=== PATIENT | male | born 1960 | race Caucasian/White ===

== ENCOUNTER 2019-02-06 06:52 | Day surgery (SDC) | payer BC, OTHER ==
[2019-02-05 11:24] LABS: BASOPHILS % (AUTO) 0.7 % (0.0-5.0); EOSINOPHILS % (AUTO) 0.9 % (0.0-8.0); HEMATOCRIT 49.6 % (42-54); LYMPHOCYTES % (AUTO) 10.7 % (21.0-51.0); MEAN CORPUSCULAR HEMOGLOBIN 33.3 pg (27.0-33.0); MEAN CORPUSCULAR HGB CONC 34.6 g/dL (32.0-36.0); MEAN CORPUSCULAR VOLUME 96.5 fL (79-99); MONOCYTES % (AUTO) 11.9 % (3.0-13.0); NEUTROPHILS % (AUTO) 75.8 % (40.0-77.0); NUCLEATED RED BLOOD CELLS 0.1 % (0.0-0.19); PLATELET COUNT (AUTO) 192 K/uL (130-400); RED BLOOD CELL COUNT(AUTO) 5.14 MIL/uL (4.50-6.20); RED CELL DISTRIBUTION WIDTH 14.3 % (11.0-15.5); WHITE BLOOD COUNT (AUTO) 5.7 K/uL (4.8-10.8)
[2019-02-05 11:30] LABS: CREATININE 1.2 mg/dL (0.5-1.5); POTASSIUM 4.4 mmol/L (3.5-5.1)
[2019-02-05 11:35] VITALS: BP 119/88
[2019-02-05 12:30] LABS: INR 1.05 (0.85-1.15); PARTIAL THROMBOPLASTIN TIME 29.9 SEC (26.3-35.5)
[2019-02-06] VITALS (12 sets, daily range): BP systolic 94–137; BP diastolic 49–87
[~2019-02-06] VITALS: Ht 175.3 cm; Wt 103.1 kg
[~2019-02-06 06:52] MED LIST: AMIO200T5 PO; APIX5TAB PO; HYDR12.54 PO; NEBI10TA PO; RANO500T2 PO; SACU1TAB7 PO
[2019-02-06] MEDS ORDERED: PROPOFOL 10 MG/ML 20ML VIAL IV ONE (07:53)
[2019-02-06] MEDS ORDERED: SUCCINYLCHOLINE 200MG/10ML SYR ONE (07:53)
[2019-02-06] MEDS ORDERED: SODIUM CHLORIDE 0.9% 1000ML 1,000 ML IV SCH (08:00)
--- NOTE | 2019-02-06 08:07 | NUR ---
TIME OUT COMPLETED, DOCTOR ELZBIETA CATES, DOCTOR PALENCIA, JORGE A MAST RN AND I IN ROOM FOR PROCEDURE START TIME 0807AM AND END TIME WAS 0812AM, PT TOLERATED WELL NO COMPLICATIONS. RECOVERY START TIME WAS 0812. VITAL SIGNS WITHIN NORMAL LIMIT (REVIEW VITALS TAB). FAMILY RETURNED TO THE ROOM AT 0842, DISCHARGE INSTRUCTIONS GIVEN TO PATIENT AND FAMILY, NO CONCERNS.
== END 2019-02-06 09:05 | disposition home or self-care (01) ==
LOC: DAH 06:52
PROVIDERS: ATTEND Internal Medicine Cardiovascular Disease
DX: I48.1 Persistent atrial fibrillation (principal); Z79.01 Long term (current) use of anticoagulants; Z79.899 Other long term (current) drug therapy; Z72.89 Other problems related to lifestyle; Z82.49 Family history of ischemic heart disease and other diseases of the circulatory system; Z83.3 Family history of diabetes mellitus
CPT/HCPCS: 36415; 80048; 85025; 85610; 85730; 92960; 93005 ×2; A4215; A4216; A4221; A4222; A4223 ×3; A4606; J0330; J2704

== ENCOUNTER 2024-04-10 23:08 | Inpatient (IN) | payer OTHER ==
[~2024-04-10] VITALS: Ht 175.3 cm; Wt 104.2 kg
[~2024-04-10 23:08] MED LIST changes: +AEC81 PO; +ALBU18HF7 IH; -AMIO200T5 PO; +AMIO200T68 PO; -APIX5TAB PO; +BROM118S48 PO; +CEFD300C3 PO; +CELE-125 PO; +DESL5TAB45 PO; +FEXO1TAB8 PO; +FLUT1BLS3 IH; +LABE200T7 PO; +METH4TAB3 PO; +MONT-39 PO; -NEBI10TA PO; +OMEP20CA12 PO; -RANO500T2 PO; +SACU1TAB4 PO; -SACU1TAB7 PO
--- NOTE | 2024-04-10 23:25 | ERN ---
ED Note History of Present Illness Stated Complaint: HYPERTENSION Chief Complaint: Hypertension Time Seen by MD: 23:12 Dictation: This is a 63-year-old morbidly obese male who presented to the emergency room via EMS with complaints of dizziness and very high blood pressure. Patient has a known history of hypertension and takes his medications regularly. He saw his primary care physician today Dr. Hawkins there was and eventually in the evening they went out to dinner and had some salty diet. Upon returning home he felt dizzy and checked his blood pressure multiple times it was systolics of over 205 over 105 and EMS was summoned. Per EMS blood pressure was 244/190 according to the patient. He had transient blurred vision but symptoms resolved by the time I evaluated him. He received labetalol per EMS Temperature 98.4 pulse 54 respirations 16 blood pressure 208/162 pulse oximetry 100% on room air His chronic medical problems include asthma, high cholesterol, hypertension, obstructive sleep apnea syndrome, liver disease with fatty liver. Allergies: Coded Allergies: acetaminophen (Unverified Allergy, Intermediate, RASH, 11/02/23) propoxyphene (Unverified Allergy, Intermediate, RASH, 11/02/23) Home Meds Active Scripts Methylprednisolone (Medrol) 4 Mg Tab.ds.pk, 4 MG PO AD, #1 PACK Prov:JUNIOR MCCOLLUM AGPCNP 11/05/23 Cefdinir (Cefdinir) 300 Mg Capsule, 300 MG PO BID, #10 CAP Prov:JUNIOR MCCOLLUM [facility] 11/05/23 Reported Medications Aspirin (ASPIRIN 81 MG ECTAB) 81 Mg Ectab, 81 MG PO QODAY, TAB.EC 11/03/23 D-Methorphan Hb/P-Epd HCl/Bpm (Bromfed Dm Cough Syrup) 2 Mg-30 Mg-10 Mg/5 Ml Syrup, 10 ML PO Q6HPRN PRN for COUGH, ML 11/02/23 Fexofenadine/Pseudoephedrine (Kerri-D 24 Hour Tablet) 180 Mg-240 Mg Tab.er.24h, 1 EACH PO DAILY, TAB 11/02/23 Albuterol Sulfate (Ventolin Hfa) 90 Mcg Hfa.aer.ad, 18 GM IH BID, INHALER 11/02/23 Fluticasone/Umeclidin/Vilanter (Trelegy Ellipta 100-62.5-25) 100-62.5 Blst.w.dev, 1 EACH IH DAILY 11/02/23 Desloratadine (Desloratadine) 5 Mg Tablet, 5 MG PO DAILY, TAB 11/02/23 Hydrochlorothiazide (Hydrochlorothiazide) 12.5 Mg Tablet, 12.5 MG PO DAILY, TAB 24 Sacubitril/Valsartan (Entresto 97 mg-103 mg Tablet) 97 Mg-103 Mg Tablet, 0.5 EACH PO PM, TAB 11/02/23 Sacubitril/Valsartan (Entresto 97 mg-103 mg Tablet) 97 Mg-103 Mg Tablet, 1 EACH PO DAILY, TAB 24 Amiodarone HCl (Amiodarone HCl) 200 Mg Tablet, 200 MG PO DAILY, TAB 24 Montelukast Sodium (Montelukast Sodium) 10 Mg Tablet, 10 MG PO DAILY, TAB 24 Omeprazole (Omeprazole) 20 Mg Capsule.dr, 20 MG PO BID, CAP 11/02/23 Celecoxib (Celecoxib) 200 Mg Capsule, 200 MG PO BID, CAP 24 Labetalol HCl (Labetalol HCl) 200 Mg Tablet, 200 MG PO BID, TAB 11/02/23 Past Medical History Past Medical History: Asthma, High Cholesterol, Hypertension, Liver Disease Additional Past Medical Hx: PROSTATE CANCER, SLEEP APNEA, FATTY LIVER Surgical History: None Surgical History Other: LEFT KNEE, PROSTATE SX, RN Note Reviewed/Agreed w/PFSH: Yes Review of System Dictation Constitutional: Negative for fever,chills, and weight loss Eyes: Negative for injury, pain,redness, and discharge ENT: Negative for injury,pain or swelling Cardiovascular: Negative for chest pain, palpitations, and edema positive for dizziness and about to pass out Respiratory: Negative for shortness of breath, cough, and wheezing, Abdomen/GI: Negative for abdominal pain, nausea, vomiting, diarrhea, and constipation Back: Negative for injury and pain : Negative for injury, bleeding and discharge MS/Extremity: Negative for injury and deformity Skin: Negative for rash, and discoloration Neuro: Negative for headache, weakness, numbness, tingling, and seizure Psych: Negative for suicide ideation, homicidal ideation, and hallucinations Initial Vital Sign VS Vital Signs Date Time Temp Pulse Resp B/P (MAP) Pulse Ox O2 Delivery O2 Flow Rate FiO2 04/10/24 23:11 98.6 58 16 208/162 100 Room Air 0 04/10/24 23:42 21 Physical Exam Dictation General: awake, alert, NAD morbidly obese male Head/Face: Normocephalic, atraumatic Eyes: PERRL, EOMI, vision at baseline ENT: oral cavity clear, TMs clear, no signs of infection Neck: Trachea midline, supple, no nuchal rigidity Cardiovascular: RRR, normal S1/S2, No MRGs, no JVD Respiratory: CTAB, no respiratory distress, No rales or wheezes Abdomen: Soft, non-tender, non-distended, normal bowel sounds, no guarding or rebound. Skin: Warm, dry, normal turgor, no rash MS/Extremity: Pulses equal, no cyanosis, neurovascular intact, FROM Neuro: COAx4, GCS 15, strength 5/5, CN 2-12 intact, normal cerebellar exam, normal gait, Psych: Normal behavior, mood, and affect normal Extremities-trace edema without any palpable cords, Homans sign is negative Results (Laboratory/Radiology) Laboratory/Radiology Laboratory Tests Test 04/10/24 23:30 04/10/24 23:32 Urine Color YELLOW (YELLOW) Urine Appearance CLEAR (CLEAR) Urine pH 6.5 (5.0-8.0) Urine Specific [place] 1.008 (1.001-1.031) Urine Protein NEGATIVE mg/dL (NEGATIVE) Urine Glucose (UA) NEGATIVE mg/dL (NEGATIVE) Urine Ketones 10 mg/dL (NEGATIVE) H Urine Occult Blood NEGATIVE (NEGATIVE) Urine Nitrate NEGATIVE (NEGATIVE) Urine Bilirubin NEGATIVE mg/dL (NEGATIVE) Urine Urobilinogen 0.2 mg/dL (0.2-1.0) Urine Leukocyte Esterase NEGATIVE Cathy/uL Urine RBC 0-1 /HPF (0-1) Urine WBC 0-1 /HPF (0-1) Urine Bacteria None /HPF (None Seen) Urine Opiates Screen NEGATIVE (NEGATIVE) Urine Barbiturates Screen NEGATIVE (NEGATIVE) Urine Phencyclidine Screen NEGATIVE (NEGATIVE) Urine Amphetamines Screen NEGATIVE (NEGATIVE) Urine Benzodiazepines Screen NEGATIVE (NEGATIVE) Urine Cocaine Screen NEGATIVE (NEGATIVE) Urine Marijuana (THC) Screen NEGATIVE (NEGATIVE) White Blood Count 5.3 K/uL (4.8-10.8) Red Blood Count 3.82 MIL/uL (4.50-6.20) L Hemoglobin 12.9 g/dL (14.0-18.0) L Hematocrit 36.8 % (42-54) L Mean Corpuscular Volume 96.3 fL (79-99) Mean Corpuscular Hemoglobin 33.8 pg (27.0-33.0) H Mean Corpuscular Hemoglobin Concent 35.1 g/dL (32.0-36.0) Red Cell Distribution Width 14.3 % (11.0-15.5) Platelet Count 143 K/uL (130-400) Mean Platelet Volume 8.9 fL (7.5-10.5) Immature Granulocyte % (Auto) 0.4 % (0-1) Neutrophils (%) (Auto) 72.8 % (40.0-77.0) Lymphocytes (%) (Auto) 12.2 % (21.0-51.0) L Monocytes (%) (Auto) 12.9 % (3.0-13.0) Eosinophils (%) (Auto) 0.8 % (0.0-8.0) Basophils (%) (Auto) 0.9 % (0.0-5.0) Neutrophils # (Auto) 3.9 K/uL (1.8-7.7) Lymphocytes # (Auto) 0.7 K/uL (1.0-4.8) L Monocytes # (Auto) 0.7 K/uL (0.1-1.0) Eosinophils # (Auto) 0.04 K/uL (0.00-0.70) Basophils # (Auto) 0.05 K/uL (0.00-0.20) Absolute Immature Granulocyte (auto 0.02 K/uL (0-1) Nucleated Red Blood Cells 0.0 % (0.0-0.19) Sodium Level 142 mmol/L (136-145) Potassium Level 3.8 mmol/L (3.5-5.1) Chloride Level 103 mmol/L (101-111) Carbon Dioxide Level 28 mmol/L (21-32) Blood Urea Nitrogen 13 mg/dL (7-18) Creatinine 1.3 mg/dL (0.5-1.3) Glomerular Filtration Rate Calc 62 mL/min (>90) Random Glucose 94 mg/dL (70-105) Total Calcium 9.1 mg/dL (8.5-10.1) B-Type Natriuretic Peptide 75 pg/mL (0-100) Labs Reviewed?: Yes ED Course ED Course Orders Procedure Category Date Status Time Cbc With Differential LAB 04/10/24 Complete 23:15 Basic Metabolic Panel LAB 04/10/24 Complete 23:15 Bedside Troponin-I LAB.ER 04/10/24 In Process (Poc) 23:15 12 Lead Ekg Tracing- EKG 04/10/24 Logged Technical 23:15 Urinalysis Profile LAB 04/10/24 Complete 23:24 Drug Screen Urine LAB 04/10/24 Complete 23:24 B-Type Natriuretic LAB 04/10/24 Complete Peptide 23:31 Chest 1vw RAD 04/10/24 Taken 23:31 Hydralazine 20mg Inj PHA 04/11/24 Complete (Apresoline 20mg In 00:00 Edm Admit Bridge Order ADM 04/11/24 Transmitted 01:39 Admit Orders ADM 04/11/24 Transmitted 01:39 Vital Signs(Adult CPOE 04/11/24 Verified Hospitalist) 01:52 Daily Weights CPOE 04/11/24 Verified 01:52 I&O Q Shift CPOE 04/11/24 Verified 01:52 Acetaminophen 325 Tab PHA 04/11/24 Verified (Tylenol 325mg Tab 02:00 Acetaminophen 325 Tab PHA 04/11/24 Verified (Tylenol 325mg Tab 02:00 Ondansetron 4mg Inj PHA 04/11/24 Verified (Zofran 4mg Inj) 02:00 Nitroglycerin 0.4mg PHA 04/11/24 Verified Sl Tab (Nitrostat) 02:00 Nurse To Enter Home CPOE 04/11/24 Verified Medication 01:52 Admit Orders ADM 04/11/24 Verified 01:52 Condition: CPOE 04/11/24 Verified 01:52 Telemetry Monitoring CPOE 04/11/24 Verified 01:52 Activity: Ad Caroline CPOE 04/11/24 Verified 01:52 Heart Healthy Diet DIET 04/11/24 Verified Breakfast Apply Scds CPOE 04/11/24 Verified 01:52 Famotidine 20mg Tab PHA 04/11/24 Verified (Pepcid 20mg Tab) 09:00 Hydralazine 10mg Iv PHA 04/11/24 Verified 02:00 Cbc With Differential LAB 04/11/24 Verified 04:00 Comprehensive LAB 04/11/24 Verified Metabolic Panel 04:00 Magnesium LAB 04/11/24 Verified 04:00 Neuro Checks Every 4 CPOE 04/11/24 Verified Hours 01:52 Current Medications Medications (Trade) Dose Ordered Sig/Brendon Route PRN Reason Start Time Stop Time Status Last Admin Dose Admin Hydralazine HCl (APRESOLine 20MG INJ) 10 mg ONCE ONCE IV 04/11/24 00:00 04/11/24 00:01 DC 04/11/24 00:28 Vital Signs Date Time Temp Pulse Resp B/P (MAP) Pulse Ox O2 Delivery O2 Flow Rate FiO2 04/11/24 00:50 59 16 159/94 93 Room Air* 0 21 04/10/24 23:42 98.4 54 16 196/98 98 Room Air* 0 21 04/10/24 23:11 98.6 58 16 208/162 100 Room Air 0 We will perform diagnostic labs, advanced imaging and administer medications according to the patient's complaint. Once the results are available, will review and personally interpreted the labs to rule out any acute life- threatening emergency the trach require immediate intervention and treatment. I will then re-evaluate the patient after treatment and diagnostic exams have return to determine whether the patient requires any further testing, can safely be discharged home or need further admission to hospital for additional treatment and evaluation. Reviewed labs CBC is within normal limits EKG showed a normal sinus rhythm with left axis deviation. No acute ST elevations noted. I have recommended admission to the hospital in view of severe hypertensive emergency with presentations of blood pressure 208/162 to 244/190. He is agreeable. 1:39 a.m. patient accepted by hospitalist group nurse practitioner pietro for cl ose monitoring evaluation of diastolic heart failure and optimizing the blood pressure control. Medical Decision Making MDM MDM: Differential diagnosis: Hypertensive urgency, hypertensive emergency, resistant hypertension, accelerated hypertension Rationale: Tests considered and ordered secondary to shared decision making include: labs, ECG and radiology Previous outside records reviewed: Old ER visits. Risk of complication and/or morbidity or mortality of patient management: None Medications-Per medication reconciliation Need for hospitalization: Patient does meet criteria for hospitalization. Need for emergency major/minor surgery: No There are no social concerns with this patient. Prescription drug management Prescriptions will include symptomatic care Patient's prior external medical records from other ER visits were reviewed by me as indicated. Prior testing and results from previous visits were reviewed. Prior tests were taken into account with medical decision making and resource utilization, independent historian/historians were used to obtain complete medical history. I independently interpreted the test that were performed, results were reviewed by me and considered findings on radiology if ordered. Medical management and examination interpretation discussions were had by me with other qualified healthcare professionals as indicated for the patient's care. Problem List Problem List: (1) Hypertensive emergency (2) Diastolic dysfunction (3) Hypercholesterolemia (4) Morbid obesity (5) Obstructive sleep apnea syndrome DX & DISP Disposition: Inpatient Decision to Admit Time: 13:50 Departure Impression: Primary Impression: Hypertensive emergency Additional Impressions: Diastolic dysfunction, Hypercholesterolemia, Obstructive sleep apnea syndrome, Morbid obesity Condition: Stable Additional Instructions: Patient was informed of all the diagnostic labs and procedures conducted in the emergency room today and demonstrated understanding of the results. I personally reviewed and interpreted all the diagnostic exams performed in the ER today. The patient will be admitted to the hospital for further treatment and evaluation. Disposition-admit to facility Condition-stable/guarded Course-uncertain at this time Pain status-decreased Assessment-exam unchanged Admission Certification- I certify that the patients status is appropriate and is based on my best clinical judgment and the patient's condition as documented in the medical records Referrals: SELF,REFERRAL (PCP) DAMIÁN MCCORMACK MD Apr 10, 2024 23:25
[2024-04-10 23:38] LABS: BASOPHILS # (AUTO) 0.05 K/uL (0.00-0.20); BASOPHILS % (AUTO) 0.9 % (0.0-5.0); EOSINOPHILS # (AUTO) 0.04 K/uL (0.00-0.70); EOSINOPHILS % (AUTO) 0.8 % (0.0-8.0); HEMATOCRIT 36.8 % (42-54); IMMATURE GRANULOCYTE ABSOLUTE 0.02 K/uL (0-1); LYMPHOCYTES # (AUTO) 0.7 K/uL (1.0-4.8); LYMPHOCYTES % (AUTO) 12.2 % (21.0-51.0); MEAN CORPUSCULAR HEMOGLOBIN 33.8 pg (27.0-33.0); MEAN CORPUSCULAR HGB CONC 35.1 g/dL (32.0-36.0); MEAN CORPUSCULAR VOLUME 96.3 fL (79-99); MONOCYTES # (AUTO) 0.7 K/uL (0.1-1.0); MONOCYTES % (AUTO) 12.9 % (3.0-13.0); NEUTROPHILS # (AUTO) 3.9 K/uL (1.8-7.7); NEUTROPHILS % (AUTO) 72.8 % (40.0-77.0); PLATELET COUNT (AUTO) 143 K/uL (130-400); RED BLOOD CELL COUNT(AUTO) 3.82 MIL/uL (4.50-6.20); RED CELL DISTRIBUTION WIDTH 14.3 % (11.0-15.5); WHITE BLOOD COUNT (AUTO) 5.3 K/uL (4.8-10.8)
[2024-04-10 23:40] LABS: ADD UA MICROSCOPIC YES; APPEARANCE,URINE CLEAR (CLEAR); BILIRUBIN,URINE NEGATIVE (NEGATIVE); COLOR,URINE YELLOW (YELLOW); GLUCOSE, URINE (UA) NEGATIVE (NEGATIVE); KETONES,URINE 10 mg/dL (NEGATIVE); LEUKOCYTE ESTERASE ,URINE NEGATIVE Leu/uL (NEGATIVE); NITRATE,URINE NEGATIVE (NEGATIVE); OCCULT BLOOD,URINE NEGATIVE (NEGATIVE); PH,URINE 6.5 (5.0-8.0); PROTEIN,URINE NEGATIVE (NEGATIVE); UROBILINOGEN,URINE 0.2 mg/dL (0.2-1.0)
[2024-04-10 23:43] LABS: RBC,URINE 0-1 /HPF (0-1); WBC,URINE 0-1 /HPF (0-1)
[2024-04-10 23:45] LABS: CREATININE 1.3 mg/dL (0.5-1.3); POTASSIUM 3.8 mmol/L (3.5-5.1)
[2024-04-10 23:47] LABS: AMPHET/METH SCREEN,URINE NEGATIVE (NEGATIVE); BARBITURATE SCREEN, URINE NEGATIVE (NEGATIVE); BENZODIAZEPINES SCREEN,URINE NEGATIVE (NEGATIVE); CANNABINOID SCREEN,URINE NEGATIVE (NEGATIVE); COCAINE SCREEN,URINE NEGATIVE (NEGATIVE); OPIATE SCREEN,URINE NEGATIVE (NEGATIVE); PHENCYCLIDINE SCREEN,URINE NEGATIVE (NEGATIVE)
[2024-04-11] VITALS (10 sets, daily range): BP systolic 140–174; BP diastolic 76–90; PULSE 51–64; RESP 17–18; TEMP 98.6–99; O2SAT 93–95
[2024-04-11] MEDS: hydrALAZine 20MG/ML VIAL IV ONE (00:28)
--- NOTE | 2024-04-11 01:52 | HP ---
[facility] HISTORY [facility] PHYSICAL Date of Service: Apr 11, 2024 Time of Service: 01:52 PCP: Sb Persaud HISTORY OF PRESENT ILLNESS: This is a 63-year-old male with past medical history of hypertension, prostate cancer, hyperlipidemia , liver disease with fatty liver, asthma and obstructive sleep apnea who was brought by EMS to the ED for complaints of dizziness and elevated blood pressure. Patient reports he was seen by his counter person today and made some changes in his BP medication which has not taken the newly prescribed med because it was still in the pharmacy.Patient states he is compliant with his medication and today his BP at the clinic was 165/91 .Patient suddenly felt dizzy at home and so he checked his BP and it was in the 200's so he decided to come to the ED .While in route EMS reportedly checked and SBP 240/190 and 208/162 as per report. Seen and examined patient in the ER awake alert and coherent, appears comfortable. Patient denies fever, cough, headache, visual disturbance, nausea, vomiting, chest pain, palpitation and shortness of breath. Latest vital signs temperature 98.4, heart rate 59, blood pressure 178/56 saturation 96% on room air. Labs hemoglobin 12.9, hematocrit 36.8, platelet count 143. Chemistry is unremarkable. Urine toxicology is negative. Chest x-ray result is still pending at this time. REVIEW OF SYSTEMS CONSTITUTIONAL: Denies fevers, chills, or night sweats. No unintentional weight loss reported. NEUROLOGICAL: Complaints of dizziness Denies headache, amaurosis fugax, motor weakness, gait abnormalities, or tremors. ENT: No hearing loss, otalgia, otorrhea, rhinitis, rhinorrhea, hoarseness, or sore throat. CARDIOVASCULAR: Denies any exertional angina, dyspnea on exertion, orthopnea, paroxysmal nocturnal dyspnea, palpitations, life-threatening arrhythmias, claudication. PULMONARY: Denies any shortness of breath, cough, phlegm/sputum, hemoptysis, pleuritic chest pain. SLEEP: Denies morning headaches, daytime somnolence or napping. Denies difficulty falling asleep, staying asleep, waking from sleep. Denies knowledge of snoring. GASTROINTESTINAL: Denies any type of dysphagia to either liquids or solids. Denies nausea, vomiting, pyrosis, early satiety, abdominal pain, diarrhea, constipation, or changes in stool consistency or caliber. Denies coffee-ground emesis, hematemesis, hematochezia, or melanotic stools. GENITOURINARY: Denies frequency, urgency, nocturia, hematuria or incontinence (Storage/Irritative symptoms.) Low urinary stream, straining to void, urinary intermittency or hesitancy, splitting of the voiding stream, terminal dribbling. ENDOCRINOLOGIC: Denies polyuria, polydipsia, polyphagia or heat/cold intolerances. HEMATOLOGIC: Denies thrombophilia/previous clots, or coagulopathy/bleeding disorders. ONCOLOGIC: Denies personal history of malignancy. DERMATOLOGIC: Denies rashes or pruritus. PSYCHIATRIC: Denies any suicidal or homicidal ideation. Denies hallucinations. PAST MEDICAL HISTORY: hypertension, prostate cancer, hyperlipidemia and obstructive sleep apnea PAST SURGICAL HISTORY: Prostate resection and left knee surgery PAST SOCIAL HISTORY: Patient lives with . Patient denies cigarette smoking and recreational drug use admits to drinking four glasses of vodka per day FAMILY HISTORY: [ Noncontributory ] Coded Allergies: acetaminophen (Unverified Allergy, Intermediate, RASH, 11/02/23) propoxyphene (Unverified Allergy, Intermediate, RASH, 11/02/23) PHYSICAL EXAM GENERAL APPEARANCE: The patient is awake, alert, and oriented, in no acute cardiopulmonary distress. NEUROLOGICAL: Cranial nerves II-XII grossly intact. Motor is 5/5 in bilateral upper and lower extremities proximal to distal. No sensory deficits. HEENT: Face is symmetric. Pupils are equal and reactive. Extraocular movements are intact. NECK: Supple. No JVD. No thyromegaly. No submental, submandibular, pre- /postauricular, occipital or supraclavicular lymphadenopathy. CHEST: Normal chest expansion. No Telemetry. LUNGS: Absence of any rales, rhonchi or any wheezing. CARDIOVASCULAR: Regular. S1 and S2 normal. No appreciable rubs, murmurs or gallops. ABDOMEN: Soft, nontender, and nondistended. There is no rebound, voluntary guarding, or rigidity. : Deferred. No Guevara. EXTREMITIES: Non-edematous and not cyanotic. No clubbing. Good capillary refill. SKIN: No skin breakdown. Vital Sign (Last 24 Hours) 11/13/24 11/14/24 23:42 00:50 Temp 98.4 Pulse 59 Resp 16 B/P (MAP) 159/94 Pulse Ox 93 O2 Delivery Room Air* O2 Flow Rate 0 FiO2 21 LABS: Laboratory: Test 04/10/24 23:32 04/10/24 23:30 Range/Units White Blood Count 5.3 4.8-10.8 K/uL Red Blood Count 3.82 L 4.50-6.20 MIL/uL Hemoglobin 12.9 L 14.0-18.0 g/dL Hematocrit 36.8 L 42-54 % Mean Corpuscular Volume 96.3 79-99 fL Mean Corpuscular Hemoglobin 33.8 H 27.0-33.0 pg Mean Corpuscular Hemoglobin Concent 35.1 32.0-36.0 g/dL Red Cell Distribution Width 14.3 11.0-15.5 % Platelet Count 143 130-400 K/uL Mean Platelet Volume 8.9 7.5-10.5 fL Immature Granulocyte % (Auto) 0.4 0-1 % Neutrophils (%) (Auto) 72.8 40.0-77.0 % Lymphocytes (%) (Auto) 12.2 L 21.0-51.0 % Monocytes (%) (Auto) 12.9 3.0-13.0 % Eosinophils (%) (Auto) 0.8 0.0-8.0 % Basophils (%) (Auto) 0.9 0.0-5.0 % Neutrophils # (Auto) 3.9 1.8-7.7 K/uL Lymphocytes # (Auto) 0.7 L 1.0-4.8 K/uL Monocytes # (Auto) 0.7 0.1-1.0 K/uL Eosinophils # (Auto) 0.04 0.00-0.70 K/uL Basophils # (Auto) 0.05 0.00-0.20 K/uL Absolute Immature Granulocyte (auto 0.02 0-1 K/uL Nucleated Red Blood Cells 0.0 0.0-0.19 % Sodium Level 142 136-145 mmol/L Potassium Level 3.8 3.5-5.1 mmol/L Chloride Level 103 101-111 mmol/L Carbon Dioxide Level 28 21-32 mmol/L Blood Urea Nitrogen 13 7-18 mg/dL Creatinine 1.3 0.5-1.3 mg/dL Glomerular Filtration Rate Calc 62 >90 mL/min Random Glucose 94 70-105 mg/dL Total Calcium 9.1 8.5-10.1 mg/dL B-Type Natriuretic Peptide 75 0-100 pg/mL Urine Color YELLOW YELLOW Urine Appearance CLEAR CLEAR Urine pH 6.5 5.0-8.0 Urine Specific [place] 1.008 1.001-1.031 Urine Protein NEGATIVE NEGATIVE mg/dL Urine Glucose (UA) NEGATIVE NEGATIVE mg/dL Urine Ketones 10 H NEGATIVE mg/dL Urine Occult Blood NEGATIVE NEGATIVE Urine Nitrate NEGATIVE NEGATIVE Urine Bilirubin NEGATIVE NEGATIVE mg/dL Urine Urobilinogen 0.2 0.2-1.0 mg/dL Urine Leukocyte Esterase NEGATIVE NEGATIVE Cathy/uL Urine RBC 0-1 0-1 /HPF Urine WBC 0-1 0-1 /HPF Urine Bacteria None None Seen /HPF Urine Opiates Screen NEGATIVE NEGATIVE Urine Barbiturates Screen NEGATIVE NEGATIVE Urine Phencyclidine Screen NEGATIVE NEGATIVE Urine Amphetamines Screen NEGATIVE NEGATIVE Urine Benzodiazepines Screen NEGATIVE NEGATIVE Urine Cocaine Screen NEGATIVE NEGATIVE Urine Marijuana (THC) Screen NEGATIVE NEGATIVE DIAGNOSTICS / RADIOLOGY: [ ] ASSESSMENT: Hypertensive emergency POA Diastolic dysfunction POA Hypercholesterolemia POA Morbid obesity POA Obstructive sleep apnea on CPAP at home POA Chronic Anemia POA PLAN: We will admit patient in medical telemetry We will start on heart healthy diet We will start on Famotidine 20 mg p.o. bid for GI prophylaxis We will replace electrolytes as needed per protocol We will add prn medication for fever,pain,nausea and vomiting Home meds reconciled We will seek Cardiology consultation We will request labs in am We will obtain 2D echo Further orders to follow depending on above results Case discussed with attending physician and came up with above treatment and plan of care. ADVANCED CARE PLANNING 1. Which of the following were discussed? Hospice Care - No Therapeutic options - Yes Advance Directives - No Other discussions - 2. Discussed with who? Patient 3. Voluntary nature of this service was explained to the patient? Yes 4. Amount of time spent - __20 5. Reviewed by Physician? (if this service was performed by NPP) Yes Patient seen and examined by me. Agree with note by NETBACKUP ENGINEER SEE ADDITIONAL ORDERS PER CHART DISCUSSED WITH NURSING STAFF SCOTT KEANE Apr 11, 2024 01:52
[2024-04-11] MEDS ORDERED: ondanSETRON 4MG INJ IV PRN (02:00)
[2024-04-11] MEDS ORDERED: NITROGLYCERIN 0.4 MG SL TAB SL PRN (02:00)
[2024-04-11] MEDS ORDERED: acetaMINOPHEN 325 MG TAB PO PRN ×2 (02:00)
[2024-04-11] MEDS: hydrALAZine 20MG/ML VIAL IV PRN (03:02)
[2024-04-11] MEDS ORDERED: ALLEGRA ×2 (04:19→05:41)
[2024-04-11] MEDS ORDERED: BABY ASPIRIN ×2 (04:19→05:41)
[2024-04-11] MEDS ORDERED: ANAS1TAB49 PO ×2 (04:19→05:41)
[2024-04-11] MEDS ORDERED: DESL5TAB38 PO (04:19)
[2024-04-11] MEDS ORDERED: TELM80TA10 PO (04:19)
[2024-04-11] MEDS ORDERED: LOSA50TA64 PO ×2 (04:19→05:41)
[2024-04-11] MEDS ORDERED: ROSU5TAB51 PO ×2 (04:19→05:41)
[2024-04-11] MEDS ORDERED: OMEP-420 PO ×2 (04:19→05:41)
[2024-04-11] MEDS ORDERED: ALBUTEROL SULFATE (04:19)
[2024-04-11] MEDS ORDERED: FLUT1BLS3 IH ×2 (04:19→05:41)
[2024-04-11] MEDS ORDERED: MONT-39 PO ×2 (04:19→05:41)
[2024-04-11] MEDS ORDERED: LoSARTan 50 MG TABLET PO SCH (05:00)
[2024-04-11] MEDS ORDERED: PoTASSium chl 10% ELIXIR 20MEQ 20 MEQ/15 ML UDCUP PO PRN (05:00)
[2024-04-11] MEDS ORDERED: NON-FORMULARY MEDICATION 1 EACH (Telmisartan 80 MG) PO SCH (05:00)
[2024-04-11] MEDS ORDERED: PoTASSium chloRIDE 20MEQ/100ML 100 ML IV PRN (05:00)
[2024-04-11] MEDS ORDERED: ALBU2.5V2 IH (05:41)
[2024-04-11] MEDS ORDERED: DESLORATADINE (05:41)
[2024-04-11] MEDS ORDERED: LABE200T7 PO (05:41)
[2024-04-11] MEDS ORDERED: ALEGRA (05:41)
--- NOTE | 2024-04-11 07:01 | NUR ---
HAND OFF REPORT GIVEN TO BECKA ROWE AT THIS TIME
[2024-04-11 07:02] LABS: BASOPHILS # (AUTO) 0.03 K/uL (0.00-0.20); BASOPHILS % (AUTO) 0.7 % (0.0-5.0); EOSINOPHILS # (AUTO) 0.04 K/uL (0.00-0.70); HEMATOCRIT 36.8 % (42-54); IMMATURE GRANULOCYTE ABSOLUTE 0.01 K/uL (0-1); LYMPHOCYTES # (AUTO) 0.6 K/uL (1.0-4.8); LYMPHOCYTES % (AUTO) 15.3 % (21.0-51.0); MEAN CORPUSCULAR HEMOGLOBIN 33.3 pg (27.0-33.0); MEAN CORPUSCULAR HGB CONC 34.2 g/dL (32.0-36.0); MEAN CORPUSCULAR VOLUME 97.4 fL (79-99); MONOCYTES # (AUTO) 0.6 K/uL (0.1-1.0); MONOCYTES % (AUTO) 14.9 % (3.0-13.0); NEUTROPHILS # (AUTO) 2.8 K/uL (1.8-7.7); NEUTROPHILS % (AUTO) 67.9 % (40.0-77.0); PLATELET COUNT (AUTO) 136 K/uL (130-400); RED BLOOD CELL COUNT(AUTO) 3.78 MIL/uL (4.50-6.20); RED CELL DISTRIBUTION WIDTH 14.3 % (11.0-15.5); WHITE BLOOD COUNT (AUTO) 4.2 K/uL (4.8-10.8)
[2024-04-11 07:20] LABS: ALBUMIN 3.7 g/dL (3.5-5.0); BILIRUBIN,TOTAL 1.2 mg/dL (0.2-1.0); CREATININE 1.1 mg/dL (0.5-1.3); MAGNESIUM 1.7 mg/dL (1.80-2.40); POTASSIUM 3.5 mmol/L (3.5-5.1); TOTAL PROTEIN, SERUM 7.2 g/dL (6.0-8.3)
[2024-04-11] MEDS: [UNRECOGNIZED DRUG - OTHER] IH SCH (08:10)
[2024-04-11] MEDS: TRELEGY ELLIPTA IH SCH (08:10)
[2024-04-11] MEDS: DESLORATADINE 5 MG PO SCH (08:11)
[2024-04-11] MEDS: ANASTROZOLE PO SCH (08:11)
[2024-04-11] MEDS: FAMOTIDINE 20MG TAB PO SCH (08:15)
[2024-04-11] MEDS: monteLUKAST sodIUM 10 MG TAB PO SCH (08:15)
[2024-04-11] MEDS: LAbetaLOL HCL 200 MG TABLET PO SCH (08:18)
[2024-04-11] MEDS: PoTASSium chloRIDE 20MEQ ER 20 MEQ ERTAB PO PRN (08:45)
[2024-04-11] MEDS: MAGNESIUM 2GM PREMIX 50ML 50 ML IV PRN (08:45)
--- NOTE | 2024-04-11 08:51 | EKG ---
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: [phone] : 1960 Requested By: DAMIÁN MCCORMACK Order Number: [id number] Reading MD: Don Bruno Measurements Intervals [place] Rate: 52 P: 30 PA: 185 QRS: -40 QRSD: 118 T: 57 QT: 519 QTc: 484 Interpretive Statements Sinus rhythm LAD, consider left anterior fascicular block Anterior infarct, old Compared to ECG 11/02/2023 14:22:33 Myocardial infarct finding now present Incomplete right bundle-branch block no longer present Prolonged QT interval no longer present Electronically Signed On 04-11-2024 19:34:50 COMPUTED TOMOGRAPHY TECHNOLOGIST by Don Bruno Please click the below link to view image of tracing.
[2024-04-11] MEDS ORDERED: FAMOTIDINE 20MG TAB PO SCH (09:00)
--- NOTE | 2024-04-11 09:10 | HMCIMG ---
CHEST 1VW REASON: diastolic heart failure, Hypertensive emergency COMPARISON: 11/02/2023 FINDINGS: Single view of the chest was obtained. Lungs are clear. Heart size is normal. There is no pulmonary vascular congestion. Mediastinum and bony thorax appear unremarkable. IMPRESSION: 1. Normal single view chest x-ray.
[2024-04-11] MEDS: LoSARTan 100 MG TABLET PO SCH (11:00)
--- NOTE | 2024-04-11 11:11 | NUR ---
At this time Patient took his Telmisartan and labetalol dose from home medication as per cardiology PACKAGER OR PACKER AND WEIGHER at bedside.
--- NOTE | 2024-04-11 12:11 | CONS ---
[facility] CARDIOLOGY CONSULTATION REPORT Cardiology consultation note dictated for Robert De La Cruz MD Primary composition molder: Jaguar Machado MD Date Patient Seen: Apr 11, 2024 Requesting Physician: MIGNON Swann Reason for Consultation: Hypertensive emergency History of Present Illness: The patient is a 63-year-old male with a past medical history of HTN, HLP, paroxysmal atrial fibrillation not on anticoagulation, s/p DCCV, currently on antiarrhythmic therapy, HEATHER on CPAP, fatty liver/liver cirrhosis, alcohol abuse, elevated CT calcium score (>1200 in 2023 with recent coronary CTA with questionable results), GERD, and asthma who presented to the ED with complaints of dizziness, blurred vision, a nose bleed and multiple elevated bp readings with the highest being 207/107 with a hr of 59bpm at 10pm while at home, which prompted him to seek medical attention. EMS reported a blood pressure of 244/190 mmHg and was given Labetalol. First blood pressure on admission decreased to 208/162mmHg with a heart rate of 58bpm. The patient was treated with Hydralazine 10mg IV at midnight and then this morning at 0829. Cardiology has been consulted for recommendations. Troponin of 9. BNP 75. The patient states he had a consult with Dr. Unique Machado on 04/10/2024 for WRIGHT and high blood pressure. Vital signs at [facility] were 164/90 mmHg with a heart rate of 56bpm. The patient's losartan was discontinued and he was prescribed telmisartan 80 mg daily and continued on labetalol 200 mg b.i.d.. The patient complained of WRIGHT of >6 months in duration and since he has been on amiodarone for > 2 years which has known toxic effects to the lung, liver, and thyroid, the patient was prescribed Multaq 400 BID instead with plans for PFTs and an Echocardiogram. The patient took his Telmisartan 80 mg and labetalol 200 mg at 1109. We will assess bp response. The patient currently denies chest pain, chest pressure, palpitations, dizziness, shortness of breath, nausea, or vomiting. Past Medical History: As per HPI in summarized below Past Surgical History: Knee surgery Family History: The patient has a family history of hypertension and diabetes. Social History: The patient lives with his . Habits: The patient denies tobacco or illicit drug use but admits to four alcoholic drinks per night. Home Meds: [id number] mg daily Multaq 400 mg b.i.d. Telmisartan 80 mg daily Rosuvastatin5 mg daily Anastrozole1 mg, 1/4 tablet daily Kerri Albuterol Trelegy Ellipta 100-62.5-25 mcg/ACT aerosol powder breath activated one puff inhalation daily Loratadine5 mg daily Montelukast sodium 10 mg daily Omeprazole 20 mg b.i.d. Current Meds: Current Medications Medications Dose Ordered Sig/Brendon Start Time Stop Time Status Last Admin Ondansetron HCl 4 mg Q6H PRN 04/11/24 02:00 05/11/24 01:59 Nitroglycerin 0.4 mg PROTOCOL PRN 04/11/24 02:00 05/11/24 01:59 Famotidine 20 mg BID 04/11/24 09:00 05/11/24 08:59 04/11/24 08:15 Hydralazine HCl 10 mg Q6H PRN 04/11/24 02:00 05/11/24 01:59 04/11/24 08:29 Labetalol HCl 200 mg BID 04/11/24 09:00 05/11/24 08:59 Montelukast Sodium 10 mg DAILY 04/11/24 09:00 05/11/24 08:59 04/11/24 08:15 Home Med DAILY 04/11/24 09:00 05/11/24 08:59 Home Med DAILY 04/11/24 09:00 05/11/24 08:59 Home Med DAILY 04/11/24 09:00 05/11/24 08:59 Atorvastatin Calcium 10 mg HS 04/11/24 21:00 05/11/24 20:59 Potassium Chloride 100 ml @ 100 mls/hr AD PRN 04/11/24 05:00 05/11/24 04:59 Potassium Chloride 20 meq AD PRN 04/11/24 05:00 05/11/24 04:59 Potassium Chloride 20 meq AD PRN 04/11/24 05:00 05/11/24 04:59 04/11/24 08:45 Magnesium Sulfate 50 ml @ 0 mls/hr PROTOCOL PRN 04/11/24 05:00 05/11/24 04:59 04/11/24 08:45 Dronedarone 400 mg BID 04/11/24 21:00 05/11/24 20:59 Losartan Potassium 100 mg DAILY 04/11/24 11:00 05/11/24 10:59 Review of Systems: CONST: [No fever, fatigue, or weight changes.] EYES: [No recent vision problems.] ENT: [No congestion, ear pain, or sore throat.] C/V: [No chest pain, palpitations, or edema.] RESP: [No cough, congestion, wheezing or shortness of breath.] GI: [No abdominal pain, nausea, vomiting, constipation, or diarrhea.] : [No incontinence or dysuria.] SKIN: [No rash.] NEURO: [No headache, focal numbness or weakness, dizziness, or seizures.] PSYCH: [No depression or anxiety.] HEME: [No abnormal bruising or bleeding.] LYMPH: [No swollen glands.] Physical Examination: GENERAL: [No acute distress.] HEAD: [Normal with no signs of head trauma.] EYES: [PERRLA, EOMI, conjunctiva and sclera normal.] ENT: [Hearing grossly intact, normal oropharynx.] NECK: [Supple without JVD. There is no tenderness, lymphadenopathy, or masses. No thyromegaly. Normal carotid upstrokes without bruits.] LUNGS: [Clear breath sounds bilaterally. No wheezes, or rhonchi.] HEART: [Normal rate and rhythm. Normal S1 and S2. 1-2/6 LEILA heard at the Lt 5th MCL] VASC: [Bilateral DP pulses 2+] ABD: [Bowel sounds normal, soft, nontender, no masses, no organomegaly. No bayron ble bruits.] : [Not examined] LYMPH: [No lymphadenopathy noted.] EXT: [No clubbing, cyanosis or edema.] SKIN: [No rashes or lesions noted.] NEURO: [Awake, alert, and oriented x3. No focal sensory or strength deficits noted.] Vital Signs (last 8hr) Date Time Temp Pulse Resp B/P (MAP) Pulse Ox O2 Delivery O2 Flow Rate FiO2 04/11/24 09:29 142/76 04/11/24 08:09 99.0 04/11/24 08:05 59 18 174/90 93 Room Air 04/11/24 07:45 93 Room Air* 0 21 04/11/24 06:37 48 16 150/87 95 Room Air* 0 21 04/11/24 05:55 49 18 158/83 95 Room Air* 0 21 04/11/24 04:44 53 18 158/81 94 Room Air* 0 21 Laboratory: Hematology Labs: Test 04/11/24 06:43 Range/Units White Blood Count 4.2 L 4.8-10.8 K/uL Red Blood Count 3.78 L 4.50-6.20 MIL/uL Hemoglobin 12.6 L 14.0-18.0 g/dL Hematocrit 36.8 L 42-54 % Mean Corpuscular Volume 97.4 79-99 fL Mean Corpuscular Hemoglobin 33.3 H 27.0-33.0 pg Mean Corpuscular Hemoglobin Concent 34.2 32.0-36.0 g/dL Red Cell Distribution Width 14.3 11.0-15.5 % Platelet Count 136 130-400 K/uL Mean Platelet Volume 9.1 7.5-10.5 fL Immature Granulocyte % (Auto) 0.2 0-1 % Neutrophils (%) (Auto) 67.9 40.0-77.0 % Lymphocytes (%) (Auto) 15.3 L 21.0-51.0 % Monocytes (%) (Auto) 14.9 H 3.0-13.0 % Eosinophils (%) (Auto) 1.0 0.0-8.0 % Basophils (%) (Auto) 0.7 0.0-5.0 % Neutrophils # (Auto) 2.8 1.8-7.7 K/uL Lymphocytes # (Auto) 0.6 L 1.0-4.8 K/uL Monocytes # (Auto) 0.6 0.1-1.0 K/uL Eosinophils # (Auto) 0.04 0.00-0.70 K/uL Basophils # (Auto) 0.03 0.00-0.20 K/uL Absolute Immature Granulocyte (auto 0.01 0-1 K/uL Nucleated Red Blood Cells 0.0 0.0-0.19 % Chemistry Labs: Test 04/11/24 07:46 04/11/24 06:43 04/10/24 23:32 Range/Units Whole Blood Glucose 99 70-110 MG/DL Sodium Level 141 136-145 mmol/L Potassium Level 3.5 3.5-5.1 mmol/L Chloride Level 104 101-111 mmol/L Carbon Dioxide Level 28 21-32 mmol/L Blood Urea Nitrogen 12 7-18 mg/dL Creatinine 1.1 0.5-1.3 mg/dL Glomerular Filtration Rate Calc 76 >90 mL/min Random Glucose 90 70-105 mg/dL Total Calcium 8.9 8.5-10.1 mg/dL Magnesium Level 1.70 L 1.80-2.40 mg/dL Total Bilirubin 1.2 H 0.2-1.0 mg/dL Aspartate Amino Transf (AST/SGOT) 111 H 10-37 U/L Alanine Aminotransferase (ALT/SGPT) 83 H 12-78 U/L Alkaline Phosphatase 82 50-136 U/L Troponin I High Sensitivity 9 4-75 ng/L Total Protein 7.2 6.0-8.3 g/dL Albumin 3.7 3.5-5.0 g/dL Triglycerides Level 59 30-200 mg/dL Cholesterol Level 149 <200 mg/dL LDL Cholesterol 14 0-99 mg/dL HDL Cholesterol 105 H 29-71 mg/dL B-Type Natriuretic Peptide 75 0-100 pg/mL Diagnostics / Radiology: Impression and Plan: Hypertensive emergency Paroxysmal atrial fibrillation not on anticoagulation, s/p DCCV, currently on antiarrhythmic therapy HLP HEATHER on CPAP Fatty liver/liver cirrhosis Alcohol abuse Elevated CT calcium score (>1200 in 2023 with recent coronary CTA with questionable results) GERD Asthma Hypertensive emergency EMS reported a blood pressure of 244/190 mmHg and was given Labetalol. First blood pressure on admission decreased to 208/162mmHg with a heart rate of 58bpm -Start Telmisartan 80mg daily (home med) and Labetalol 200 mg b.i.d., asses BP response -Echocardiogram to assess LV function Paroxysmal atrial fibrillation not on anticoagulation, s/p DCCV, currently on antiarrhythmic therapy -Start Multaq 400 BID -Hold Anticoagulation due to transaminitis for now ATTESTATION BY PHYSICIAN I have seen and examined the patient, reviewed the above documentation, participated in medical decision making, made necessary modifications, and agree with the treatment plan as documented by my mid-level provider above. The patient describes a dizziness and lightheadedness with slight disorientation and memory loss during severe hypertension, and he was also a bit short of breath but did not have chest pressure or chest tightness or chest pain. He has a long history of poorly controlled hypertension, previously treated by Dr. Aman Alma[facility] [place]. Review of medications that have been used in the past included amlodipine, hydrochlorothiazide, losartan, and beta-blockers. Beta-blockers have been eliminated because the patient tends to have a slow heart rate. Yesterday Dr. Machado discontinued losartan and amiodarone (prescribed for paroxysmal atrial fibrillation) and started olmesartan and Multaq. The patient has obstructive sleep apnea but uses CPAP every time he sleeps. Differential diagnosis of persistent labile hypertension for a patient who uses CPAP consistently and is treated with multiple antihypertensive drugs includes hyperaldosteronism, renovascular hypertension, and pheochromocytoma. Of these, pheochromocytoma or hyperaldosteronism seem the most likely, and of the three hyperaldosteronism is the most common. I will initiate a 24 hour urine collection for catecholamines and VMA, and I will initiate treatment with amiloride 10 mg daily. The patient's sodium is 141 and his potassium is in the low-normal range on ARB, so hyperaldosteronism seems likely. We will add amiloride to the other medications already prescribed. MD MARICRUZ Burns [facility] Apr 11, 2024 12:11 PRUDENCIO DE LA CRUZ MD Apr 11, 2024 16:08
--- NOTE | 2024-04-11 13:04 | PN ---
[facility] PROGRESS NOTE Date of Service: Apr 11, 2024 Time of Service: 11:00 SUBJECTIVE: The patient is 63-year-old male with past medical history of hypertension, prostate cancer, atrial fibrillation, hyperlipidemia , liver disease with fatty liver, asthma and obstructive sleep apnea who was brought by EMS to the ED for complaints of dizziness and elevated blood pressure followed by nose bleeding on 04/10/24. Patient reports he was seen by his district attorney yesterday and made some changes in his BP medication which has not taken the newly prescribed med because it was still in the pharmacy. Patient states he is compliant with his medication and today his BP at the clinic was 165/91. Patient suddenly felt dizzy at home and so he checked his BP and it was in the 200's so he decided to come to the ED. While in route EMS reportedly checked and SBP 240/190 and 208/162 as per report. Patient denies fever, cough, headache, visual disturbance, nausea, vomiting, chest pain, palpitation and shortness of breath. Latest vital signs temperature 98.4, heart rate 59, blood pressure 178/56 saturation 96% on room air. Labs showed hemoglobin 12.9, Hematocrit 36.8, Magnesium 1.7, Total bilirubin 1.2, AST 111, ALT 83, chemistry was unremarkable. Urine toxicology and Chest XRAY was negative. The patient will be admitted on Medical Surgical floor for the management of hypertensive emergency. 04/11- The patient was examined today with his girlfriend at bedside in ED18. He appears comfortable, does not seem in any distress. He denies any complaints of concerns at this time. [employer] consult was made and the recommendations are below as provided. 2D Echo,CT Head was ordered to rule out intracranial bleeding. The results are pending. The patient is pending a bed on the medical surgical floor. Further assessment and plan discussed below. REVIEW OF SYSTEMS CONSTITUTIONAL: Denies fevers, chills, or night sweats. No unintentional weight loss reported. NEUROLOGICAL: Complaints of dizziness Denies headache, amaurosis fugax, motor weakness, gait abnormalities, or tremors. ENT: Nose bleeding episode, otalgia, otorrhea, rhinitis, rhinorrhea, hoarseness, or sore throat. CARDIOVASCULAR: Denies any exertional angina, dyspnea on exertion, orthopnea, paroxysmal nocturnal dyspnea, palpitations, life-threatening arrhythmias, claudication. PULMONARY: Denies any shortness of breath, cough, phlegm/sputum, hemoptysis, pleuritic chest pain. SLEEP: Denies morning headaches, daytime somnolence or napping. Denies difficulty falling asleep, staying asleep, waking from sleep. Denies knowledge of snoring. GASTROINTESTINAL: Denies any type of dysphagia to either liquids or solids. Denies nausea, vomiting, pyrosis, early satiety, abdominal pain, diarrhea, constipation, or changes in stool consistency or caliber. Denies coffee-ground emesis, hematemesis, hematochezia, or melanotic stools. GENITOURINARY: Denies frequency, urgency, nocturia, hematuria or incontinence (Storage/Irritative symptoms.) Low urinary stream, straining to void, urinary intermittency or hesitancy, splitting of the voiding stream, terminal dribbling. ENDOCRINOLOGIC: Denies polyuria, polydipsia, polyphagia or heat/cold intolerances. HEMATOLOGIC: Denies thrombophilia/previous clots, or coagulopathy/bleeding disorders. ONCOLOGIC: Denies personal history of malignancy. DERMATOLOGIC: Denies rashes or pruritus. PSYCHIATRIC: Denies any suicidal or homicidal ideation. Denies hallucinations. PHYSICAL EXAM GENERAL APPEARANCE: The patient is awake, alert, and oriented, in no acute cardiopulmonary distress. NEUROLOGICAL: Cranial nerves II-XII grossly intact. Motor is 5/5 in bilateral upper and lower extremities proximal to distal. No sensory deficits. HEENT: Face is symmetric. Pupils are equal and reactive. Extraocular movements are intact. NECK: Supple. No JVD. No thyromegaly. No submental, submandibular, pre- /postauricular, occipital or supraclavicular lymphadenopathy. CHEST: Normal chest expansion. No Telemetry. LUNGS: Absence of any rales, rhonchi or any wheezing. CARDIOVASCULAR: Regular. S1 and S2 normal. No appreciable rubs, murmurs or gallops. ABDOMEN: Soft, nontender, and nondistended. There is no rebound, voluntary guarding, or rigidity. : Deferred. No Guevara. EXTREMITIES: Non-edematous and not cyanotic. No clubbing. Good capillary refill. SKIN: No skin breakdown. Vital Signs (last 8hr) Date Time Temp Pulse Resp B/P (MAP) Pulse Ox O2 Delivery O2 Flow Rate FiO2 04/11/24 11:32 98.6 51 17 162/85 95 Room Air 0.0 04/11/24 09:29 142/76 04/11/24 08:09 99.0 04/11/24 08:05 59 18 174/90 93 Room Air 04/11/24 07:45 93 Room Air* 0 21 04/11/24 06:37 48 16 150/87 95 Room Air* 0 21 04/11/24 05:55 49 18 158/83 95 Room Air* 0 21 LABS: Laboratory: Test 04/11/24 07:46 04/11/24 06:43 04/10/24 23:32 04/10/24 23:30 Range/Units Whole Blood Glucose 99 70-110 MG/DL White Blood Count 4.2 L 4.8-10.8 K/uL Red Blood Count 3.78 L 4.50-6.20 MIL/uL Hemoglobin 12.6 L 14.0-18.0 g/dL Hematocrit 36.8 L 42-54 % Mean Corpuscular Volume 97.4 79-99 fL Mean Corpuscular Hemoglobin 33.3 H 27.0-33.0 pg Mean Corpuscular Hemoglobin Concent 34.2 32.0-36.0 g/dL Red Cell Distribution Width 14.3 11.0-15.5 % Platelet Count 136 130-400 K/uL Mean Platelet Volume 9.1 7.5-10.5 fL Immature Granulocyte % (Auto) 0.2 0-1 % Neutrophils (%) (Auto) 67.9 40.0-77.0 % Lymphocytes (%) (Auto) 15.3 L 21.0-51.0 % Monocytes (%) (Auto) 14.9 H 3.0-13.0 % Eosinophils (%) (Auto) 1.0 0.0-8.0 % Basophils (%) (Auto) 0.7 0.0-5.0 % Neutrophils # (Auto) 2.8 1.8-7.7 K/uL Lymphocytes # (Auto) 0.6 L 1.0-4.8 K/uL Monocytes # (Auto) 0.6 0.1-1.0 K/uL Eosinophils # (Auto) 0.04 0.00-0.70 K/uL Basophils # (Auto) 0.03 0.00-0.20 K/uL Absolute Immature Granulocyte (auto 0.01 0-1 K/uL Nucleated Red Blood Cells 0.0 0.0-0.19 % Sodium Level 141 136-145 mmol/L Potassium Level 3.5 3.5-5.1 mmol/L Chloride Level 104 101-111 mmol/L Carbon Dioxide Level 28 21-32 mmol/L Blood Urea Nitrogen 12 7-18 mg/dL Creatinine 1.1 0.5-1.3 mg/dL Glomerular Filtration Rate Calc 76 >90 mL/min Random Glucose 90 70-105 mg/dL Total Calcium 8.9 8.5-10.1 mg/dL Magnesium Level 1.70 L 1.80-2.40 mg/dL Total Bilirubin 1.2 H 0.2-1.0 mg/dL Aspartate Amino Transf (AST/SGOT) 111 H 10-37 U/L Alanine Aminotransferase (ALT/SGPT) 83 H 12-78 U/L Alkaline Phosphatase 82 50-136 U/L Troponin I High Sensitivity 9 4-75 ng/L Total Protein 7.2 6.0-8.3 g/dL Albumin 3.7 3.5-5.0 g/dL Triglycerides Level 59 30-200 mg/dL Cholesterol Level 149 <200 mg/dL LDL Cholesterol 14 0-99 mg/dL HDL Cholesterol 105 H 29-71 mg/dL B-Type Natriuretic Peptide 75 0-100 pg/mL Urine Color YELLOW YELLOW Urine Appearance CLEAR CLEAR Urine pH 6.5 5.0-8.0 Urine Specific [place] 1.008 1.001-1.031 Urine Protein NEGATIVE NEGATIVE mg/dL Urine Glucose (UA) NEGATIVE NEGATIVE mg/dL Urine Ketones 10 H NEGATIVE mg/dL Urine Occult Blood NEGATIVE NEGATIVE Urine Nitrate NEGATIVE NEGATIVE Urine Bilirubin NEGATIVE NEGATIVE mg/dL Urine Urobilinogen 0.2 0.2-1.0 mg/dL Urine Leukocyte Esterase NEGATIVE NEGATIVE Cathy/uL Urine RBC 0-1 0-1 /HPF Urine WBC 0-1 0-1 /HPF Urine Bacteria None None Seen /HPF Urine Opiates Screen NEGATIVE NEGATIVE Urine Barbiturates Screen NEGATIVE NEGATIVE Urine Phencyclidine Screen NEGATIVE NEGATIVE Urine Amphetamines Screen NEGATIVE NEGATIVE Urine Benzodiazepines Screen NEGATIVE NEGATIVE Urine Cocaine Screen NEGATIVE NEGATIVE Urine Marijuana (THC) Screen NEGATIVE NEGATIVE Current Medications Medications (Trade) Dose Ordered Sig/Brendon Route PRN Reason Start Time Stop Time Status Last Admin Dose Admin Acetaminophen (TYLenol 325MG TAB) 650 mg Q4H PRN PO MILD PAIN (1-3) 04/11/24 02:00 04/11/24 02:37 DC Acetaminophen (TYLenol 325MG TAB) 650 mg Q6H PRN PO TEMPERATURE GREATER THAN 101.5 04/11/24 02:00 04/11/24 02:37 DC Atorvastatin Calcium (LIPItor 10MG) 10 mg HS PO 04/11/24 21:00 05/11/24 20:59 Dronedarone (Multaq) 400 mg BID PO 04/11/24 21:00 05/11/24 20:59 Famotidine (Pepcid 20mg Tab) 20 mg BID PO 04/11/24 09:00 04/11/24 05:22 DC Famotidine (Pepcid 20mg Tab) 20 mg BID PO 04/11/24 09:00 05/11/24 08:59 04/11/24 08:15 20 MG Home Med (Home Medication) DAILY IH 04/11/24 09:00 05/11/24 08:59 Home Med (Home Medication) DAILY PO 04/11/24 09:00 05/11/24 08:59 Home Med (Home Medication) DAILY PO 04/11/24 09:00 05/11/24 08:59 Hydralazine HCl (APRESOLine 20MG INJ) 10 mg Q6H PRN IV For:SBP above 160;DBP above 90 04/11/24 02:00 05/11/24 01:59 04/11/24 08:29 10 MG Labetalol HCl (TRANdate 200 MG TABLET) 200 mg BID PO 04/11/24 09:00 05/11/24 08:59 Losartan Potassium (CozAAR 100MG TAB) 100 mg DAILY PO 04/11/24 11:00 05/11/24 10:59 Losartan Potassium (CozAAR 50 mg TAB) 50 mg ONCE PO 04/11/24 05:00 04/11/24 05:35 DC Magnesium Sulfate 50 ml @ 0 mls/hr PROTOCOL PRN IV OTHER [SEE ORDER COMMENTS] 04/11/24 05:00 05/11/24 04:59 04/11/24 08:45 25 MLS/HR Miscellaneous Medication (Telmisartan ) 80 mg ONCE PO 04/11/24 05:00 04/11/24 05:23 DC Montelukast Sodium (SinguLAIR) 10 mg DAILY PO 04/11/24 09:00 05/11/24 08:59 04/11/24 08:15 10 MG Nitroglycerin (Nitrostat) 0.4 mg PROTOCOL PRN SL CHEST PAIN 04/11/24 02:00 05/11/24 01:59 Ondansetron HCl (zoFRAN 4MG INJ) 4 mg Q6H PRN IV NAUSEA/VOMITING 04/11/24 02:00 05/11/24 01:59 Potassium Chloride 100 ml @ 100 mls/hr AD PRN IV POTASSIUM PROTOCOL 04/11/24 05:00 05/11/24 04:59 Potassium Chloride (K-Dur/Klor-Con 20meq) 20 meq AD PRN PO POTASSIUM PROTOCOL 04/11/24 05:00 05/11/24 04:59 04/11/24 08:45 20 MEQ Potassium Chloride (KCl 10% Elixir 20meq/15ml) 20 meq AD PRN PO POTASSIUM PROTOCOL 04/11/24 05:00 05/11/24 04:59 DIAGNOSTICS / RADIOLOGY: [place] [address] IMAGING REPORT Signed PATIENT: IVELISSE PRESSLEY MR#: [id number] : 1960 SEX: M AGE: 63 LOCATION: [facility]HIP ORDER 31 STATUS: ADM IN REPORT#: [id number] SERVICE 30 REASON: diastolic heart failure, Hypertensive emergency ORDERING PHYSICIAN: DAMIÁN MCCORMACK MD PROCEDURE: CXR1VW - CHEST 1VW CHEST 1VW REASON: diastolic heart failure, Hypertensive emergency COMPARISON: 11/02/2023 FINDINGS: Single view of the chest was obtained. Lungs are clear. Heart size is normal. There is no pulmonary vascular congestion. Mediastinum and bony thorax appear unremarkable. IMPRESSION: 1. Normal single view chest x-ray. DICTATED BY: GAEL BRODERICK MD DATE: 04/11/24906 ELECTRONICALLY SIGNED BY: GAEL BRODERICK MD DATE: 11/14/24 0910 ASSESSMENT: Hypertensive emergency POA Diastolic dysfunction POA Paroxysmal atrial Fibrillation POA Hypercholesterolemia POA Morbid obesity POA Obstructive sleep apnea on CPAP at home POA Chronic Anemia POA H/o Prostate cancer PLAN: The patient will be admitted on Medical Surgical floor. Hypertensive emergency * Continue Losartan 100 MG PO daily and Labetalol 200 mg b.i.d., reassess BP response. * Hydralazine 10 mg PRN Q6 if SBP>160s and DBP>90s. * Echocardiogram to assess LV function, results are pending. * CT head was ordered to rule out intracranial bleeding, follow up when the results are available. Paroxysmal atrial fibrillation not on anticoagulation * Start Multaq 400 BID * Hold Anticoagulation due to transaminitis for now Obstructive sleep apnea on CPAP at home POA * Continue with CPAP at night for breathing support. * Continue with heart healthy diet * Replace electrolytes as needed per protocol * PRN medications for fever,pain,nausea and vomiting * Home medications were reconciled and resumed * Follow cardiology recommendations * AM labs: CBC, CMP We will monitor patient's vitals for 24 hours and treat hypertensive emergency based on BP levels. Possible disposition home in 24-48 hours. ATTESTATION BY PHYSICIAN I have seen and examined the patient. I reviewed the documentation, medical decision making, and treatment plan as noted by the resident provider above. I agree with the findings and plan of care. Felice Page MD, MANALI MD Apr 11, 2024 13:04
--- NOTE | 2024-04-11 13:09 | HMCIMG ---
Exam: NONCONTRAST CT BRAIN REASON: blurred vision, rule out bleed d/t hypertensive emergency. COMPARISON: 11/03/2023 TECHNIQUE: Images are obtained from vertex to the skull base. The exam was performed without IV contrast. FINDINGS: There is normal appearing brain parenchyma. There are no focal mass lesions. There is is no evidence of intracranial hemorrhage or acute stroke. Ventricles and sulci appear normal. Posterior fossa and brainstem structures are unremarkable. Paranasal sinuses and remaining extracranial soft tissues appear normal as well. IMPRESSION: 1. Normal noncontrast CT brain. CT was performed with one or more following dose reduction techniques: automated exposure control, adjustment of the mA and kv according to patient's size, or use of a iterative reconstruction technique.
--- NOTE | 2024-04-11 14:12 | NUR ---
DCP: HOME Pt lives with his GF Tita Barbour [phone], in an apt. SISTER/POA Cyndi Carroll [phone]. Pt works at [employer], is able to complete ADLS on his own. Uses no DME or in home care services. PCP is Jihan Persaud in [place] and uses [facility] in for rx. Denies dc needs and [place] Addendum: 04/11/24 at 1412 by SHEILA GONZALEZ Amended: Links added.
--- NOTE | 2024-04-11 14:40 | HMCSR ---
APPROVED REPORT EXAM: Two-dimensional and M-mode echocardiogram with Doppler and color Doppler. INDICATION ICD: Hypertensive emergency 2D Dimensions RVDd3.8 cmLVEF(%)56.8 (>50%)LVED Vol(simp.)96.0 mL IVSd0.9 (0.7-1.1cm)FS(%)30 %LVES Vol(simp.)35.0 mL LVDd4.7 (3.8-5.6cm)LA (2D)3.9 (1.6-4.0cm)LVEF(%, simp.)64 % PWd1.2 (0.7-1.1cm)Ao Root(2D)3.2 (2.0-3.7cm)LA ESV INDEX (4CH)24.20 mL/m2 IVSs1.4 cmLVOT diam2.4 (1.8-2.4cm)LA ESV INDEX (2CH)38.50 mL/m2 LVDs3.3 (2.5-4.0cm)IVC diam1.7 cmLA ESV INDEX (BP)32.90 mL/m2 PWs1.5 cm M-Mode Dimensions EPSS1.3 cm LA (MM)3.9 (1.6-4.0cm) Ao Root(MM)3.5 (2.0-3.7cm) Aortic Valve AoV VTI0.3 mAo Mean GR4.0 mmHgLVOT VTI0.29 m PEDRO (VMAX)4.4 cm2AVA (VTI) 4.4 cm2 Mitral Valve MV E Vmax58.2 cm/sDECEL Fzlu296 ms MV A Vmax80.0 cm/sP 1/2 T46 ms E/A ratio0.7MVA (PHT)4.8 cm2 TDI E/E' Dohfof13.6E/E' Lateral9.0 Medial E' Peak V5.50 cm/sLateral E' Peak V6.50 cm/s Left Ventricle Left ventricular cavity size is normal. There is normal LV segmental wall motion. There is normal lef t ventricular wall thickness. LVEF is 60-65%. Indeterminate diastolic dysfunction. Right Ventricle The right ventricle is normal size. The right ventricular systolic function is normal. Atria The left atrium size is normal. The right atrium size is normal. Aortic Valve The aortic valve is normal in structure and function. No aortic regurgitation is present. There is no aortic valvular stenosis. Mitral Valve The mitral valve is mildly thickened but open well. There is no mitral valve regurgitation noted. The re is no mitral valve stenosis. Tricuspid Valve The tricuspid valve is normal in structure and function. There is no tricuspid valve regurgitation no janelle. Pulmonic Valve The pulmonary valve is normal in structure and function. There is no pulmonic valvular regurgitation. Great Vessels The aortic root is normal in size. The IVC is normal in size and collapses >50% with inspiration. Pericardium Trivial pericardial effusion. No echo indications of pericardial tamponade. Other Information Quality : Technically difficult study due to body habitus. Conclusion LVEF is 60-65%.
[2024-04-11] MEDS: acetaMINOPHEN 325 MG TAB PO PRN (16:33)
[2024-04-11] MEDS: AMILoride 5MG TAB PO ONE (16:33)
--- NOTE | 2024-04-11 17:24 | NUR ---
24 hrs urine collection started at 1635. Lab notified to add 24 urine catecholamine
--- NOTE | 2024-04-11 17:31 | NUR ---
SPOKE WITH LAB, FOR 24 HRS URINE CATECHOLAMINES A SPECIAL CONTAINER IS NEEDED. LAB STATED THAT TECH IS OUT FOR TODAY BUT TOMORROW WILL LOCATE A CONTAINER FOR THIS TEST.
[2024-04-11] MEDS: DRONEDARONE HYDROCHLORIDE 400 MG TABLET PO SCH (21:23)
[2024-04-11] MEDS: atorVAStatin 10 MG TABLET PO SCH (21:24)
[2024-04-11] MEDS: hydrOXYzine 10 MG TABLET PO SCH (22:31)
[2024-04-12] VITALS (9 sets, daily range): BP systolic 153–175; BP diastolic 65–98; PULSE 48–65; RESP 16–20; TEMP 97.9–98.9; O2SAT 94–96
[2024-04-12 06:46] LABS: BASOPHILS # (AUTO) 0.04 K/uL (0.00-0.20); BASOPHILS % (AUTO) 0.9 % (0.0-5.0); EOSINOPHILS # (AUTO) 0.06 K/uL (0.00-0.70); EOSINOPHILS % (AUTO) 1.3 % (0.0-8.0); HEMATOCRIT 38.1 % (42-54); IMMATURE GRANULOCYTE ABSOLUTE 0.02 K/uL (0-1); LYMPHOCYTES # (AUTO) 0.7 K/uL (1.0-4.8); LYMPHOCYTES % (AUTO) 15.4 % (21.0-51.0); MEAN CORPUSCULAR HEMOGLOBIN 33.6 pg (27.0-33.0); MEAN CORPUSCULAR HGB CONC 33.6 g/dL (32.0-36.0); MONOCYTES # (AUTO) 0.6 K/uL (0.1-1.0); MONOCYTES % (AUTO) 12.9 % (3.0-13.0); NEUTROPHILS # (AUTO) 3.1 K/uL (1.8-7.7); NEUTROPHILS % (AUTO) 69.1 % (40.0-77.0); PLATELET COUNT (AUTO) 162 K/uL (130-400); RED BLOOD CELL COUNT(AUTO) 3.81 MIL/uL (4.50-6.20); RED CELL DISTRIBUTION WIDTH 14.5 % (11.0-15.5); WHITE BLOOD COUNT (AUTO) 4.5 K/uL (4.8-10.8)
[2024-04-12 07:14] LABS: ALBUMIN 4.1 g/dL (3.5-5.0); BILIRUBIN,TOTAL 1.4 mg/dL (0.2-1.0); CREATININE 1.2 mg/dL (0.5-1.3); T4 (THYROXINE) 5.3 ug/dL (4.7-13.3); THYROID STIMULATING HORMONE 75.72 uIU/mL (0.36-3.74); TOTAL PROTEIN, SERUM 7.5 g/dL (6.0-8.3)
--- NOTE | 2024-04-12 09:33 | PN ---
[facility] CARDIOLOGY PROGRESS NOTE Cardiology Progress Note dictated for Dr. Jaguar Mayfield MD Date Patient Seen: Apr 12, 2024 Interval History: This is a 63y/o male who was seen and evaluated at the bedside today. The patient denies any active complaints including headache, dizziness, chest pain, chest pressure, palpitations, or shortness of breath. As per the nurse, there were no overnight events. Physical Examination: GENERAL: No acute distress. HEAD: Normal with no signs of head trauma. EYES: PERRLA, EOMI, conjunctiva and sclera normal. NECK: Supple without JVD. There is no tenderness, lymphadenopathy, or masses. No thyromegaly. Normal carotid upstrokes without bruits. LUNGS: Clear breath sounds bilaterally. No wheezes, or rhonchi. HEART: Bradycardia noted. Normal S1 and S2. No murmurs, gallop or rub. VASC: Bilateral DP pulses 2+. EXT: No clubbing, cyanosis or edema. NEURO: Awake, alert, and oriented x3. No focal neurological deficits noted. Laboratory: Hematology Labs: Test 04/12/24 06:24 Range/Units White Blood Count 4.5 L 4.8-10.8 K/uL Red Blood Count 3.81 L 4.50-6.20 MIL/uL Hemoglobin 12.8 L 14.0-18.0 g/dL Hematocrit 38.1 L 42-54 % Mean Corpuscular Volume 100.0 H 79-99 fL Mean Corpuscular Hemoglobin 33.6 H 27.0-33.0 pg Mean Corpuscular Hemoglobin Concent 33.6 32.0-36.0 g/dL Red Cell Distribution Width 14.5 11.0-15.5 % Platelet Count 162 130-400 K/uL Mean Platelet Volume 8.9 7.5-10.5 fL Immature Granulocyte % (Auto) 0.4 0-1 % Neutrophils (%) (Auto) 69.1 40.0-77.0 % Lymphocytes (%) (Auto) 15.4 L 21.0-51.0 % Monocytes (%) (Auto) 12.9 3.0-13.0 % Eosinophils (%) (Auto) 1.3 0.0-8.0 % Basophils (%) (Auto) 0.9 0.0-5.0 % Neutrophils # (Auto) 3.1 1.8-7.7 K/uL Lymphocytes # (Auto) 0.7 L 1.0-4.8 K/uL Monocytes # (Auto) 0.6 0.1-1.0 K/uL Eosinophils # (Auto) 0.06 0.00-0.70 K/uL Basophils # (Auto) 0.04 0.00-0.20 K/uL Absolute Immature Granulocyte (auto 0.02 0-1 K/uL Nucleated Red Blood Cells 0.0 0.0-0.19 % Chemistry Labs: Test 04/12/24 06:24 04/11/24 16:05 04/11/24 06:43 04/10/24 23:32 Range/Units Sodium Level 140 136-145 mmol/L Potassium Level 4.0 3.5-5.1 mmol/L Chloride Level 103 101-111 mmol/L Carbon Dioxide Level 32 21-32 mmol/L Blood Urea Nitrogen 11 7-18 mg/dL Creatinine 1.2 0.5-1.3 mg/dL Glomerular Filtration Rate Calc 68 >90 mL/min Random Glucose 88 70-105 mg/dL Total Calcium 9.0 8.5-10.1 mg/dL Total Bilirubin 1.4 H 0.2-1.0 mg/dL Aspartate Amino Transf (AST/SGOT) 89 H 10-37 U/L Alanine Aminotransferase (ALT/SGPT) 75 12-78 U/L Alkaline Phosphatase 82 50-136 U/L Total Protein 7.5 6.0-8.3 g/dL Albumin 4.1 3.5-5.0 g/dL Thyroid Stimulating Hormone (TSH) 75.72 H 0.36-3.74 uIU/mL Free Thyroxine (T4) Direct 0.45 L 0.76-1.46 ng/dL Thyroxine (T4) 5.3 4.7-13.3 ug/dL Whole Blood Glucose 108 70-110 MG/DL Magnesium Level 1.70 L 1.80-2.40 mg/dL Troponin I High Sensitivity 9 4-75 ng/L Triglycerides Level 59 30-200 mg/dL Cholesterol Level 149 <200 mg/dL LDL Cholesterol 14 0-99 mg/dL HDL Cholesterol 105 H 29-71 mg/dL B-Type Natriuretic Peptide 75 0-100 pg/mL Diagnostics / Radiology: Assessment: -Hypertensive urgency -Amiodarone toxicity, with thyroid and liver dysfunction -Hypothyroidism -Paroxysmal atrial fibrillation not on anticoagulation, s/p DCCV, currently on antiarrhythmic therapy -Elevated CT calcium score (>1200 in 2023) -Recent coronary CTA with questionable results -Normal LV systolic function (LVEF: 60-65% by echo done 04/11/2024) -HLP -Asthma -HEATHER/OHS on CPAP therapy -Fatty liver/liver cirrhosis -Alcohol abuse -GERD -Obesity Plan: 1. Hypertensive urgency -Improved -Peak BP: 208/162 mmHg -12H BP: 160-174/65-93 mmHg -In order to optimize BP control, we will start the patient on nifedipine ER 30 mg QHS. In addition, we will stop amiloride (patient unlikely to have hyperaldosteronism) and losartan and instead will have the patient resume his home medication of telmisartan 80 mg daily. In addition, he will continue on labetalol 200 mg BID. -Antihypertensive therapy should be titrated in order to achieve a BP goal of less than 140/90 mmHg. 2. Paroxysmal atrial fibrillation s/p DCCV, currently on antiarrhythmic therapy -Substrate: Unknown -12H telemetry: Sinus bradycardia-Sinus rhythm, no arrhythmias noted -Currently stable, asymptomatic, and in a sinus rhythm -The patient will continue on Multaq 400 BID and labetalol 200 mg BID -[id number] Score: 1-2 points (CAD?). HAS BLED score: 4 points. The patient will continue only on aspirin therapy at this time. -Please keep the patient on continuous telemetry monitoring and maintain electrolytes within normal parameters 3. Hypothyroidism -Likely secondary to amiodarone therapy -TSH: 75.72, Free T4: 0.45, T4: 5.3 -Initiate Levothyroxine 100 mcg daily -We will reevaluate the patient's thyroid function in 3 months as an outpatient We anticipate that the patient can be discharged in the next 24-48 hours. Physician Attestation: I attest that I was physically present for the sharp portions of the service and evaluated the patient with MIGNON So, and we have reviewed and discussed the case and I agree with the findings and plans of care as documented above. -MD MARICRUZ Gallardo VALERIE L FNP Apr 12, 2024 09:33 JAGUAR MAYFIELD MD Apr 13, 2024 00:34
[2024-04-12] MEDS: AMILoride 5MG TAB PO SCH (09:45)
[2024-04-12 09:57] LABS: INR 1.14 (0.85-1.15); PROTHROMBIN TIME 12.2 SEC (9.6-11.6)
[2024-04-12] MEDS: levoTHYROxine 100 MCG TABLET PO ONE (11:47)
--- NOTE | 2024-04-12 16:36 | PN ---
[facility] PROGRESS NOTE Date of Service: Apr 12, 2024 Time of Service: 12:00 SUBJECTIVE: The patient is 63-year-old male with past medical history of hypertension, prostate cancer, atrial fibrillation, hyperlipidemia , liver disease with fatty liver, asthma and obstructive sleep apnea who was brought by EMS to the ED for complaints of dizziness and elevated blood pressure followed by nose bleeding on 04/10/24. Patient reports he was seen by his recreation program coordinator yesterday and made some changes in his BP medication which has not taken the newly prescribed med because it was still in the pharmacy. Patient states he is compliant with his medication and today his BP at the clinic was 165/91. Patient suddenly felt dizzy at home and so he checked his BP and it was in the 200's so he decided to come to the ED. While in route EMS reportedly checked and SBP 240/190 and 208/162 as per report. Patient denies fever, cough, headache, visual disturbance, nausea, vomiting, chest pain, palpitation and shortness of breath. Latest vital signs temperature 98.4, heart rate 59, blood pressure 178/56 saturation 96% on room air. Labs showed hemoglobin 12.9, Hematocrit 36.8, Magnesium 1.7, Total bilirubin 1.2, AST 111, ALT 83, chemistry was unremarkable. Urine toxicology and Chest XRAY was negative. The patient will be admitted on Medical Surgical floor for the management of hypertensive emergency. 04/11: The patient was examined today with his girlfriend at bedside in ED18. He appears comfortable, does not seem in any distress. He denies any complaints of concerns at this time. Wax Pumper consult was made and the recommendations are below as provided. 2D Echo,CT Head was ordered to rule out intracranial bleeding. The results are pending. The patient is pending a bed on the medical surgical floor. Further assessment and plan discussed below. 04/12: The patient was examined today at bedside and having lunch. He appears comfortable, does not seem in any distress. He feels a lot better today and d enies any complaints. His SBPs has been in 160-170s and diastolic in 90s. Per cardiology, differential diagnosis of persistent labile hypertension for a patient who uses CPAP consistently and is treated with multiple antihypertensive drugs includes hyperaldosteronism, renovascular hypertension, and pheochromocytoma. Of these, pheochromocytoma or hyperaldosteronism seem the most likely, and of the three, hyperaldosteronism is the most common. A 24 hour urine collection for catecholamines and VMA was initiated yesterday and was treated with Amiloride 10 mg x1 Significant labs: TSH 75.72, Free T4 0.45, Urine 24-hour protein excretion 492 (0-165) Head CT did not show any intracranial bleeding. Further assessment and plan discussed below. REVIEW OF SYSTEMS CONSTITUTIONAL: Denies fevers, chills, or night sweats. No unintentional weight loss reported. NEUROLOGICAL: Denies of dizziness, headache, amaurosis fugax, motor weakness, gait abnormalities, or tremors. ENT: Nose bleeding episode, otalgia, otorrhea, rhinitis, rhinorrhea, hoarseness, or sore throat. CARDIOVASCULAR: Denies any exertional angina, dyspnea on exertion, orthopnea, paroxysmal nocturnal dyspnea, palpitations, life-threatening arrhythmias, claudication. PULMONARY: Denies any shortness of breath, cough, phlegm/sputum, hemoptysis, pleuritic chest pain. SLEEP: Denies morning headaches, daytime somnolence or napping. Denies difficulty falling asleep, staying asleep, waking from sleep. Denies knowledge of snoring. GASTROINTESTINAL: Denies any type of dysphagia to either liquids or solids. Denies nausea, vomiting, pyrosis, early satiety, abdominal pain, diarrhea, constipation, or changes in stool consistency or caliber. Denies coffee-ground emesis, hematemesis, hematochezia, or melanotic stools. GENITOURINARY: Denies frequency, urgency, nocturia, hematuria or incontinence (Storage/Irritative symptoms.) Low urinary stream, straining to void, urinary intermittency or hesitancy, splitting of the voiding stream, terminal dribbling. ENDOCRINOLOGIC: Denies polyuria, polydipsia, polyphagia or heat/cold intolerances. HEMATOLOGIC: Denies thrombophilia/previous clots, or coagulopathy/bleeding disorders. ONCOLOGIC: Denies personal history of malignancy. DERMATOLOGIC: Denies rashes or pruritus. PSYCHIATRIC: Denies any suicidal or homicidal ideation. Denies hallucinations. PHYSICAL EXAM GENERAL APPEARANCE: The patient is awake, alert, and oriented, in no acute cardiopulmonary distress. NEUROLOGICAL: Cranial nerves II-XII grossly intact. Motor is 5/5 in bilateral upper and lower extremities proximal to distal. No sensory deficits. HEENT: Face is symmetric. Pupils are equal and reactive. Extraocular movements are intact. NECK: Supple. No JVD. No thyromegaly. No submental, submandibular, pre- /postauricular, occipital or supraclavicular lymphadenopathy. CHEST: Normal chest expansion. No Telemetry. LUNGS: Absence of any rales, rhonchi or any wheezing. CARDIOVASCULAR: Regular. S1 and S2 normal. No appreciable rubs, murmurs or gallops. ABDOMEN: Soft, nontender, and nondistended. There is no rebound, voluntary guarding, or rigidity. : Deferred. No Guevara. EXTREMITIES: Non-edematous and not cyanotic. No clubbing. Good capillary refill. SKIN: No skin breakdown. Vital Signs (last 8hr) Date Time Temp Pulse Resp B/P (MAP) Pulse Ox O2 Delivery O2 Flow Rate FiO2 04/12/24 12:00 98.6 55 18 153/82 95 Room Air 21 LABS: Laboratory: Test 04/12/24 09:34 04/12/24 06:24 04/11/24 16:05 04/11/24 06:43 Range/Units Prothrombin Time 12.2 H 9.6-11.6 SEC Prothromb Time International Ratio 1.14 0.85-1.15 White Blood Count 4.5 L 4.8-10.8 K/uL Red Blood Count 3.81 L 4.50-6.20 MIL/uL Hemoglobin 12.8 L 14.0-18.0 g/dL Hematocrit 38.1 L 42-54 % Mean Corpuscular Volume 100.0 H 79-99 fL Mean Corpuscular Hemoglobin 33.6 H 27.0-33.0 pg Mean Corpuscular Hemoglobin Concent 33.6 32.0-36.0 g/dL Red Cell Distribution Width 14.5 11.0-15.5 % Platelet Count 162 130-400 K/uL Mean Platelet Volume 8.9 7.5-10.5 fL Immature Granulocyte % (Auto) 0.4 0-1 % Neutrophils (%) (Auto) 69.1 40.0-77.0 % Lymphocytes (%) (Auto) 15.4 L 21.0-51.0 % Monocytes (%) (Auto) 12.9 3.0-13.0 % Eosinophils (%) (Auto) 1.3 0.0-8.0 % Basophils (%) (Auto) 0.9 0.0-5.0 % Neutrophils # (Auto) 3.1 1.8-7.7 K/uL Lymphocytes # (Auto) 0.7 L 1.0-4.8 K/uL Monocytes # (Auto) 0.6 0.1-1.0 K/uL Eosinophils # (Auto) 0.06 0.00-0.70 K/uL Basophils # (Auto) 0.04 0.00-0.20 K/uL Absolute Immature Granulocyte (auto 0.02 0-1 K/uL Nucleated Red Blood Cells 0.0 0.0-0.19 % Sodium Level 140 136-145 mmol/L Potassium Level 4.0 3.5-5.1 mmol/L Chloride Level 103 101-111 mmol/L Carbon Dioxide Level 32 21-32 mmol/L Blood Urea Nitrogen 11 7-18 mg/dL Creatinine 1.2 0.5-1.3 mg/dL Glomerular Filtration Rate Calc 68 >90 mL/min Random Glucose 88 70-105 mg/dL Total Calcium 9.0 8.5-10.1 mg/dL Magnesium Level 2.00 1.80-2.40 mg/dL Total Bilirubin 1.4 H 0.2-1.0 mg/dL Aspartate Amino Transf (AST/SGOT) 89 H 10-37 U/L Alanine Aminotransferase (ALT/SGPT) 75 12-78 U/L Alkaline Phosphatase 82 50-136 U/L Total Protein 7.5 6.0-8.3 g/dL Albumin 4.1 3.5-5.0 g/dL Thyroid Stimulating Hormone (TSH) 75.72 H 0.36-3.74 uIU/mL Free Thyroxine (T4) Direct 0.45 L 0.76-1.46 ng/dL Thyroxine (T4) 5.3 4.7-13.3 ug/dL Whole Blood Glucose 108 70-110 MG/DL Troponin I High Sensitivity 9 4-75 ng/L Triglycerides Level 59 30-200 mg/dL Cholesterol Level 149 <200 mg/dL LDL Cholesterol 14 0-99 mg/dL HDL Cholesterol 105 H 29-71 mg/dL Test 04/10/24 23:32 04/10/24 23:30 Range/Units B-Type Natriuretic Peptide 75 0-100 pg/mL Urine Color YELLOW YELLOW Urine Appearance CLEAR CLEAR Urine pH 6.5 5.0-8.0 Urine Specific [place] 1.008 1.001-1.031 Urine Protein NEGATIVE NEGATIVE mg/dL Urine Glucose (UA) NEGATIVE NEGATIVE mg/dL Urine Ketones 10 H NEGATIVE mg/dL Urine Occult Blood NEGATIVE NEGATIVE Urine Nitrate NEGATIVE NEGATIVE Urine Bilirubin NEGATIVE NEGATIVE mg/dL Urine Urobilinogen 0.2 0.2-1.0 mg/dL Urine Leukocyte Esterase NEGATIVE NEGATIVE Cathy/uL Urine RBC 0-1 0-1 /HPF Urine WBC 0-1 0-1 /HPF Urine Bacteria None None Seen /HPF Urine Opiates Screen NEGATIVE NEGATIVE Urine Barbiturates Screen NEGATIVE NEGATIVE Urine Phencyclidine Screen NEGATIVE NEGATIVE Urine Amphetamines Screen NEGATIVE NEGATIVE Urine Benzodiazepines Screen NEGATIVE NEGATIVE Urine Cocaine Screen NEGATIVE NEGATIVE Urine Marijuana (THC) Screen NEGATIVE NEGATIVE Current Medications Medications (Trade) Dose Ordered Sig/Brendon Route PRN Reason Start Time Stop Time Status Last Admin Dose Admin Acetaminophen (TYLenol 325MG TAB) 650 mg Q4H PRN PO MILD PAIN (1-3) 04/11/24 02:00 04/11/24 02:37 DC Acetaminophen (TYLenol 325MG TAB) 650 mg Q4H PRN PO MILD PAIN (1-3) 04/11/24 16:30 05/11/24 16:29 04/11/24 16:33 650 MG Acetaminophen (TYLenol 325MG TAB) 650 mg Q6H PRN PO TEMPERATURE GREATER THAN 101.5 04/11/24 02:00 04/11/24 02:37 DC Amiloride HCl (MiDAMor 5MG TAB) 5 mg DAILY PO 04/12/24 09:00 04/12/24 13:29 DC 04/12/24 09:45 5 MG Atorvastatin Calcium (LIPItor 10MG) 10 mg HS PO 04/11/24 21:00 05/11/24 20:59 04/11/24 21:24 10 MG Dronedarone (Multaq) 400 mg BID PO 04/11/24 21:00 05/11/24 20:59 04/12/24 09:45 400 MG Famotidine (Pepcid 20mg Tab) 20 mg BID PO 04/11/24 09:00 04/11/24 05:22 DC Famotidine (Pepcid 20mg Tab) 20 mg BID PO 04/11/24 09:00 05/11/24 08:59 04/12/24 09:44 20 MG Home Med (Home Medication) DAILY IH 04/11/24 09:00 05/11/24 08:59 Home Med (Home Medication) DAILY PO 04/11/24 09:00 05/11/24 08:59 Home Med (Home Medication) DAILY PO 04/11/24 09:00 05/11/24 08:59 Home Med (Home Medication) Telmisartan 80mg PO Daily DAILY08 PO 04/13/24 08:00 05/13/24 07:59 Hydralazine HCl (APRESOLine 20MG INJ) 10 mg Q6H PRN IV For:SBP above 160;DBP above 90 04/11/24 02:00 05/11/24 01:59 04/11/24 18:50 10 MG Hydroxyzine HCl (ATArax 10MG TAB) 10 mg Q24H PO 04/11/24 22:30 05/11/24 22:29 04/11/24 22:31 10 MG Labetalol HCl (TRANdate 200 MG TABLET) 200 mg BID PO 04/11/24 09:00 05/11/24 08:59 04/12/24 09:45 200 MG Losartan Potassium (CozAAR 100MG TAB) 100 mg DAILY PO 04/11/24 11:00 04/12/24 10:50 DC 04/12/24 09:45 100 MG Losartan Potassium (CozAAR 50 mg TAB) 50 mg ONCE PO 04/11/24 05:00 04/11/24 05:35 DC Magnesium Sulfate 50 ml @ 0 mls/hr PROTOCOL PRN IV OTHER [SEE ORDER COMMENTS] 04/11/24 05:00 05/11/24 04:59 04/11/24 08:45 25 MLS/HR Miscellaneous Medication (Telmisartan ) 80 mg ONCE PO 04/11/24 05:00 04/11/24 05:23 DC Montelukast Sodium (SinguLAIR) 10 mg DAILY PO 04/11/24 09:00 05/11/24 08:59 04/12/24 09:44 10 MG Nifedipine (adALAT 30MG) 30 mg HS PO 04/12/24 21:00 05/12/24 20:59 Nitroglycerin (Nitrostat) 0.4 mg PROTOCOL PRN SL CHEST PAIN 04/11/24 02:00 05/11/24 01:59 Ondansetron HCl (zoFRAN 4MG INJ) 4 mg Q6H PRN IV NAUSEA/VOMITING 04/11/24 02:00 05/11/24 01:59 Potassium Chloride 100 ml @ 100 mls/hr AD PRN IV POTASSIUM PROTOCOL 04/11/24 05:00 05/11/24 04:59 Potassium Chloride (K-Dur/Klor-Con 20meq) 20 meq AD PRN PO POTASSIUM PROTOCOL 04/11/24 05:00 05/11/24 04:59 04/11/24 22:31 20 MEQ Potassium Chloride (KCl 10% Elixir 20meq/15ml) 20 meq AD PRN PO POTASSIUM PROTOCOL 04/11/24 05:00 05/11/24 04:59 DIAGNOSTICS / RADIOLOGY: [place] [address] IMAGING REPORT Signed PATIENT: IVELISSE PRESSLEY MR#: [id number] : 1960 SEX: M AGE: 63 LOCATION: EDHIP ORDER STATUS: ADM IN REPORT#: [id number] SERVICE 1217 REASON: blurred vision, rule out bleed d/t hypertensive emergency ORDERING PHYSICIAN: OSMEL ALCANTARA SLIP COVER OPERATOR PROCEDURE: HEAD WO - CT HEAD/BRAIN W/O CONTRAST Exam: NONCONTRAST CT BRAIN REASON: blurred vision, rule out bleed d/t hypertensive emergency. COMPARISON: 11/03/2023 TECHNIQUE: Images are obtained from vertex to the skull base. The exam was performed without IV contrast. FINDINGS: There is normal appearing brain parenchyma. There are no focal mass lesions. There is is no evidence of intracranial hemorrhage or acute stroke. Ventricles and sulci appear normal. Posterior fossa and brainstem structures are unremarkable. Paranasal sinuses and remaining extracranial soft tissues appear normal as well. IMPRESSION: 1. Normal noncontrast CT brain. CT was performed with one or more following dose reduction techniques: automated exposure control, adjustment of the mA and kv according to patient's size, or use of a iterative reconstruction technique. DICTATED BY: GAEL BRODERICK MD DATE: 04/11/241304 ELECTRONICALLY SIGNED BY: GAEL BRODERICK MD DATE: 04/11/[address] [address] IMAGING REPORT Signed PATIENT: IVELISSE PRESSLEY MR#: [id number] : 1960 SEX: M AGE: 63 LOCATION: EDHIP ORDER 4 STATUS: ADM IN REPORT#: [id number] SERVICE 1 REASON: HTN Emergency ORDERING PHYSICIAN: SCOTT KEANE PROCEDURE: ECHO CMP - ECHO 2-D COMPLETE APPROVED REPORT EXAM: Two-dimensional and M-mode echocardiogram with Doppler and color Doppler. INDICATION ICD: Hypertensive emergency 2D Dimensions RVDd 3.8 cm LVEF(%) 56.8 (>50%) LVED Vol(simp.) 96.0 mL IVSd 0.9 (0.7-1.1cm) FS(%) 30 % LVES Vol(simp.) 35.0 mL LVDd 4.7 (3.8-5.6cm) LA (2D) 3.9 (1.6-4.0cm) LVEF(%, simp.) 64 % PWd 1.2 (0.7-1.1cm) Ao Root(2D) 3.2 (2.0-3.7cm) LA ESV INDEX (4CH) 24.20 mL/m2 IVSs 1.4 cm LVOT diam 2.4 (1.8-2.4cm) LA ESV INDEX (2CH) 38.50 mL/m2 LVDs 3.3 (2.5-4.0cm) IVC diam 1.7 cm LA ESV INDEX (BP) 32.90 mL/m2 PWs 1.5 cm M-Mode Dimensions EPSS 1.3 cm LA (MM) 3.9 (1.6-4.0cm) Ao Root(MM) 3.5 (2.0-3.7cm) Aortic Valve AoV VTI 0.3 m Ao Mean GR 4.0 mmHg LVOT VTI 0.29 m PEDRO (VMAX) 4.4 cm2 PEDRO (VTI) 4.4 cm2 Mitral Valve MV E Vmax 58.2 cm/s DECEL Time 239 ms MV A Vmax 80.0 cm/s P 1/2 T 46 ms E/A ratio 0.7 MVA (PHT) 4.8 cm2 TDI E/E' Medial 10.6 E/E' Lateral 9.0 Medial E' Peak V 5.50 cm/s Lateral E' Peak V 6.50 cm/s Left Ventricle Left ventricular cavity size is normal. There is normal LV segmental wall motion. There is normal left ventricular wall thickness. LVEF is 60-65%. Indeterminate diastolic dysfunction. Right Ventricle The right ventricle is normal size. The right ventricular systolic function is normal. Atria The left atrium size is normal. The right atrium size is normal. Aortic Valve The aortic valve is normal in structure and function. No aortic regurgitation is present. There is no aortic valvular stenosis. Mitral Valve The mitral valve is mildly thickened but open well. There is no mitral valve regurgitation noted. There is no mitral valve stenosis. Tricuspid Valve The tricuspid valve is normal in structure and function. There is no tricuspid valve regurgitation noted. Pulmonic Valve The pulmonary valve is normal in structure and function. There is no pulmonic valvular regurgitation. Great Vessels The aortic root is normal in size. The IVC is normal in size and collapses >50% with inspiration. Pericardium Trivial pericardial effusion. No echo indications of pericardial tamponade. Other Information Quality : Technically difficult study due to body habitus. Conclusion LVEF is 60-65%. DICTATED BY: PRUDENCIO DE LA CRUZ MD DATE: 04/11/24 0817 ELECTRONICALLY SIGNED BY: PRUDENCIO DE LA CRUZ MD DATE: 04/11/24 [address] [address] IMAGING REPORT Signed PATIENT: IVELISSE PRESSLEY MR#: [id number] : 1960 SEX: M AGE: 63 LOCATION: EDHIP ORDER 31 STATUS: ADM IN REPORT#: [id number] SERVICE 2331 REASON: diastolic heart failure, Hypertensive emergency ORDERING PHYSICIAN: DAMIÁN MCCORMACK MD PROCEDURE: CXR1VW - CHEST 1VW CHEST 1VW REASON: diastolic heart failure, Hypertensive emergency COMPARISON: 11/02/2023 FINDINGS: Single view of the chest was obtained. Lungs are clear. Heart size is normal. There is no pulmonary vascular congestion. Mediastinum and bony thorax appear unremarkable. IMPRESSION: 1. Normal single view chest x-ray. DICTATED BY: GAEL BRODERICK MD DATE: 04/11/24906 ELECTRONICALLY SIGNED BY: GAEL BORDERICK MD DATE: 04/11/24909 ASSESSMENT: Hypertensive emergency POA Diastolic dysfunction POA Paroxysmal atrial Fibrillation POA Hypercholesterolemia POA Morbid obesity POA Obstructive sleep apnea on CPAP at home POA Chronic Anemia POA Hypothyroidism Possible secondary hypertension hyperaldosteronism vs pheochromocytoma vs renovascular hypertension, rule out H/o Prostate cancer PLAN: The patient will be admitted on Medical Surgical floor. Hypertensive emergency * Start Telmisartan 80 MG, Nifedipine 30 MG HS and Labetalol 200 mg b.i.d., reassess BP response. * Hydralazine 10 mg PRN Q6 if SBP>160s and DBP>90s. * Echocardiogram showed LVEF is 60-65%, Indeterminate diastolic dysfunction. * CT head was negative for intracranial bleeding. Paroxysmal atrial fibrillation not on anticoagulation * Continue Multaq 400 BID * Hold Anticoagulation due to transaminitis for now * EKG in AM since the patient was on Amiodarone for long time to reassess the QT interval. Follow up with the results. Obstructive sleep apnea on CPAP at home POA * Continue with CPAP at night for breathing support. Hypothyroidism * Start taking Levothyroxine 100 MG daily on empty stomach. Possible secondary hypertension hyperaldosteronism vs pheochromocytoma vs renovascular hypertension, rule out * 24 hour Urine collection of catecholamines, VMA, renal ultrasound was ordered. Follow up when the results are available. * Continue with heart healthy diet * Replace electrolytes as needed per protocol * PRN medications for fever,pain,nausea and vomiting * Home medications were reconciled and resumed * Follow cardiology recommendations * AM labs: CBC, CMP We will monitor patient's vitals for 24 hours and treat hypertensive emergency based on BP levels. Possible disposition home in 24-48 hours. ATTESTATION BY PHYSICIAN I have seen and examined the patient. I reviewed the documentation, medical decision making, and treatment plan as noted by the resident provider above. I agree with the findings and plan of care. Felice Page MD, MANALI MD Apr 12, 2024 16:36
[2024-04-12 17:29] LABS: COLLECTION PERIOD,URINE 24 HR; TOTAL VOLUME 24HRS,URINE 1200 mL
[2024-04-12 17:44] LABS: TPROTEIN TIMED,URINE 41 mg/dL; TPROTEIN U,24HR CALC 492 mg/24HR (0-165)
[2024-04-12] MEDS: nifeDIPine ER 30 MG TAB PO SCH (22:10)
[2024-04-13] VITALS: BP 173/95; PULSE 61; RESP 17; TEMP 98.2
[2024-04-13 04:00] VITALS: BP 176/94; PULSE 63; RESP 18; TEMP 98
[2024-04-13 05:36] LABS: BASOPHILS # (AUTO) 0.05 K/uL (0.00-0.20); BASOPHILS % (AUTO) 0.9 % (0.0-5.0); EOSINOPHILS # (AUTO) 0.08 K/uL (0.00-0.70); EOSINOPHILS % (AUTO) 1.4 % (0.0-8.0); HEMATOCRIT 41.4 % (42-54); IMMATURE GRANULOCYTE ABSOLUTE 0.03 K/uL (0-1); LYMPHOCYTES # (AUTO) 0.7 K/uL (1.0-4.8); LYMPHOCYTES % (AUTO) 11.2 % (21.0-51.0); MEAN CORPUSCULAR HEMOGLOBIN 34.1 pg (27.0-33.0); MEAN CORPUSCULAR HGB CONC 34.1 g/dL (32.0-36.0); MONOCYTES # (AUTO) 0.6 K/uL (0.1-1.0); MONOCYTES % (AUTO) 9.7 % (3.0-13.0); NEUTROPHILS # (AUTO) 4.4 K/uL (1.8-7.7); NEUTROPHILS % (AUTO) 76.3 % (40.0-77.0); PLATELET COUNT (AUTO) 132 K/uL (130-400); RED BLOOD CELL COUNT(AUTO) 4.14 MIL/uL (4.50-6.20); RED CELL DISTRIBUTION WIDTH 13.8 % (11.0-15.5); WHITE BLOOD COUNT (AUTO) 5.8 K/uL (4.8-10.8)
[2024-04-13 06:00] LABS: ALBUMIN 4.3 g/dL (3.5-5.0); BILIRUBIN,TOTAL 1.4 mg/dL (0.2-1.0); CREATININE 1.2 mg/dL (0.5-1.3); POTASSIUM 3.9 mmol/L (3.5-5.1); TOTAL PROTEIN, SERUM 8.4 g/dL (6.0-8.3)
[2024-04-13 08:00] VITALS: BP 126/80; PULSE 63; RESP 18; TEMP 98; O2SAT 98
--- NOTE | 2024-04-13 09:03 | EKG ---
[facility] Test Date: 2024-04-13 Test Time: 09:01:26 Pat Name: IVELISSE PRESSLEY Department: 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
--- NOTE | 2024-04-13 10:14 | PN ---
Cardiology Progress Note Date of Service: 04/13/2024 Problem list: -Hypertensive urgency -Amiodarone toxicity, with thyroid and liver dysfunction -Hypothyroidism -Paroxysmal atrial fibrillation not on anticoagulation, s/p DCCV, currently on antiarrhythmic therapy -Elevated CT calcium score (>1200 in 2023) -Recent coronary CTA with questionable results -Normal LV systolic function (LVEF: 60-65% by echo done 04/11/2024) -HLP -Asthma -HEATHER/OHS on CPAP therapy -Fatty liver/liver cirrhosis -Alcohol abuse -GERD -Obesity Subjective: This is a 63-year-old male who was seen and evaluated at the bedside. The patient states that he does not sleep well last night but otherwise is feeling great. He denies any headache, dizziness, near-syncope, chest pain, chest pressure, palpitations, or shortness for breath. As per the nurse there were no overnight events. Vitals/Labs Vital Signs Date Time Temp Pulse Resp B/P (MAP) Pulse Ox O2 Delivery O2 Flow Rate FiO2 04/13/24 08:00 98.1 63 18 126/80 98 Room Air 21 04/12/24 19:45 0 PE: General: Awake and alert x3. No acute distress. HEENT: Normocephalic, atraumatic. Extraocular movements are intact. Oral mucosa was moist. Neck: No masses, no JVD, no carotid bruits noted. Lungs: No respiratory distress. Symmetric chest movement. Bilaterally clear to auscultation. No wheezing, rales, or rhonchi. Cardiac: Regular rate. Normal S1 and S2. Positive S4. No rubs or gallops identified. Abdomen: Soft, nontender, nondistended. No organomegaly. Normoactive bowel sounds x4 quadrants. Extremities: No edema, clubbing or cyanosis. Plus two pulses noted throughout. Neuro: Cranial nerves 2-12 are grossly intact. No obvious focal deficits identified. Laboratory Tests 04/13/24 05:15 Telemetry: Sinus rhythm., with heart rates ranging between 50 through 75 beats per minute. Assessment: -Hypertensive urgency -Amiodarone toxicity, with thyroid and liver dysfunction -Hypothyroidism -Paroxysmal atrial fibrillation not on anticoagulation, s/p DCCV, currently on antiarrhythmic therapy -Elevated CT calcium score (>1200 in 2023) -Recent coronary CTA with questionable results -Normal LV systolic function (LVEF: 60-65% by echo done 04/11/2024) -HLP -Asthma -HEATHER/OHS on CPAP therapy -Fatty liver/liver cirrhosis -Alcohol abuse -GERD -Obesity Plan: 1. Hypertensive urgency -Resolved -AM BP: 125/75mmHg -The above-mentioned findings indicate significant clinical improvement and and that the patient is responding well to the medication change. As a result he will continue on telmisartan 80 mg daily (a.m.), labetalol 200 mg BID (AM and PM) and nifedipine ER 30 mg qhs 2. Paroxysmal atrial fibrillation s/p DCCV, currently on antiarrhythmic therapy -Substrate: Unknown -24H telemetry: Sinus rhythm., with heart rates ranging between 50 through 75 beats per minute. -Currently stable, asymptomatic, and in a sinus rhythm -The patient will continue on Multaq 400 BID and labetalol 200 mg BID -[id number] Score: 1-2 points (CAD?). HAS BLED score: 4 points. The patient will continue only on aspirin therapy at this time. 3. Hypothyroidism -Likely secondary to amiodarone therapy -TSH: 75.72, Free T4: 0.45, T4: 5.3 -Continue Levothyroxine 100 mcg daily -We will reevaluate the patient's thyroid function in 3 months as an outpatient [place] to [place] from a cardiology standpoint. The patient does not require any prescriptions, because his medications have already been sent to his pharmacy. Please have the patient follow up with Dr. Machado in 1-2 weeks. TAMELA MACHADO MD Apr 13, 2024 10:14
--- NOTE | 2024-04-13 10:27 | HMCIMG ---
ULTRASOUND RENAL. RENAL ARTERY DUPLEX SCAN. INDICATION: Evaluate for renal arterial stenosis TECHNIQUE: Grayscale and duplex scans of both kidneys performed. COMPARISON: None FINDINGS: Right kidney measures toe 0.0 x 7.0 x 6.0. Left kidney measures 12.0 x 7.0 x 6.0. No focal renal masses demonstrated. 2.0 cm simple right renal cyst demonstrated. No evidence for hydronephrosis or shadowing stones. The renal artery Doppler parameters are as follows: RIGHT KIDNEY: Right renal/aortic ratio measures 1.1. Right renal arterial velocity is measured at 45 cm/sec. Segmental resistive indices of the right kidney appear normal. LEFT KIDNEY: Left renal/aortic ratio measures 1.2. Left renal arterial velocity is measured at 49 cm/sec. Segmental resistive indices of the left kidney appear normal. Normal flow wasdemonstrated in both renal javier with normal appearing spectral waveforms identified. The visualized portions of the aorta appear normal without evidence for aneurysmal dilatation. Aortic velocity = 42 cm/sec IMPRESSION: No evidence for renal arterial stenosis. Parameters as reported.
[2024-04-13 12:00] VITALS: BP 115/81; PULSE 110; RESP 18; TEMP 98.3
--- NOTE | 2024-04-13 12:14 | DS ---
Discharge Summary Hospital Course Summary: The patient is 63-year-old male with past medical history of hypertension, prostate cancer, atrial fibrillation, hyperlipidemia , liver disease with fatty liver, asthma and obstructive sleep apnea who was brought by EMS to the ED for complaints of dizziness and elevated blood pressure followed by nose bleeding on 04/10/24. 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 Patient states he is compliant with his medication and today his BP at the clinic was 165/91. Patient suddenly felt dizzy at home and so he checked his BP and it was in the 200's so he decided to come to the ED. While in route EMS reportedly checked and SBP 240/190 and 208/162 as per report. Patient denies fever, cough, headache, visual disturbance, nausea, vomiting, chest pain, palpitation and shortness of breath. Latest vital signs temperature 98.4, heart rate 59, blood pressure 178/56 saturation 96% on room air. Labs showed hemoglobin 12.9, Hematocrit 36.8, Magnesium 1.7, Total bilirubin 1.2, AST 111, ALT 83, chemistry was unremarkable. Urine toxicology and Chest XRAY was negative. The patient will be admitted on Medical Surgical floor for the management of hypertensive emergency. DURING THE COURSE OF HOSPITAL STAY PATIENT WAS FOLLOWED BY CUPOLA OPERATOR INSULATION'S BLOOD PRESSURE IMPROVED RESPONDING WELL WITH MEDICATION CHANGE telmisartan 80 mg daily (a.m.), labetalol 200 mg BID (AM and PM) and nifedipine ER 30 mg qhs WE WILL CONTINUE UPON DISCHARGE. AFIB CONTINUES ON ANTI ARRHYTHMIA THERAPY MULTAQ 400 B.I.D. AND LABETALOL 200 MG B.I.D.. PATIENT WILL CONTINUE WITH ASPIRIN WELL. HYPOTHYROIDISM LIKELY SECONDARY TO AMIODARONE THERAPY PATIENT WILL CONTINUE WITH LEVOTHYROXINE 100 MCG DAILY VIRAL FUNCTION IN THREE MONTHS OUTPATIENT. CUPOLA OPERATOR INSULATION'S CLEARED PATIENT FOR DISCHARGE PRESCRIPTIONS HAVE ALREADY BE SENT TO HIS PHARMACY PER CUPOLA OPERATOR INSULATION'S FOLLOW-UP IN 1-2 WEEKS Procedure(s): REASON: Rule out renal artery stenosis ORDERING PHYSICIAN: JEWELL ANGUIANO MD PROCEDURE: RENAL - US RENAL SONOGRAM ULTRASOUND RENAL. RENAL ARTERY DUPLEX SCAN. INDICATION: Evaluate for renal arterial stenosis TECHNIQUE: Grayscale and duplex scans of both kidneys performed. COMPARISON: None FINDINGS: Right kidney measures toe 0.0 x 7.0 x 6.0. Left kidney measures 12.0 x 7.0 x 6.0. No focal renal masses demonstrated. 2.0 cm simple right renal cyst demonstrated. No evidence for hydronephrosis or shadowing stones. The renal artery Doppler parameters are as follows: RIGHT KIDNEY: Right renal/aortic ratio measures 1.1. Right renal arterial velocity is measured at 45 cm/sec. Segmental resistive indices of the right kidney appear normal. LEFT KIDNEY: Left renal/aortic ratio measures 1.2. Left renal arterial velocity is measured at 49 cm/sec. Segmental resistive indices of the left kidney appear normal. Normal flow wasdemonstrated in both renal javier with normal appearing spectral waveforms identified. The visualized portions of the aorta appear normal without evidence for aneurysmal dilatation. Aortic velocity = 42 cm/sec IMPRESSION: No evidence for renal arterial stenosis. Parameters as reported. REASON: blurred vision, rule out bleed d/t hypertensive emergency ORDERING PHYSICIAN: OSMEL ALCANTARA DRILL PRESSER PROCEDURE: HEAD WO - CT HEAD/BRAIN W/O CONTRAST Exam: NONCONTRAST CT BRAIN REASON: blurred vision, rule out bleed d/t hypertensive emergency. COMPARISON: 11/03/2023 TECHNIQUE: Images are obtained from vertex to the skull base. The exam was performed without IV contrast. FINDINGS: There is normal appearing brain parenchyma. There are no focal mass lesions. There is is no evidence of intracranial hemorrhage or acute stroke. Ventricles and sulci appear normal. Posterior fossa and brainstem structures are unremarkable. Paranasal sinuses and remaining extracranial soft tissues appear normal as well. IMPRESSION: 1. Normal noncontrast CT brain. REASON: HTN Emergency ORDERING PHYSICIAN: SCOTT KEANE DRILL PRESSER PROCEDURE: ECHO CMP - ECHO 2-D COMPLETE APPROVED REPORT EXAM: Two-dimensional and M-mode echocardiogram with Doppler and color Doppler. INDICATION ICD: Hypertensive emergency 2D Dimensions RVDd 3.8 cm LVEF(%) 56.8 (>50%) LVED Vol(simp.) 96.0 mL IVSd 0.9 (0.7-1.1cm) FS(%) 30 % LVES Vol(simp.) 35.0 mL LVDd 4.7 (3.8-5.6cm) LA (2D) 3.9 (1.6-4.0cm) LVEF(%, simp.) 64 % PWd 1.2 (0.7-1.1cm) Ao Root(2D) 3.2 (2.0-3.7cm) LA ESV INDEX (4CH) 24.20 mL/m2 IVSs 1.4 cm LVOT diam 2.4 (1.8-2.4cm) LA ESV INDEX (2CH) 38.50 mL/m 2 LVDs 3.3 (2.5-4.0cm) IVC diam 1.7 cm LA ESV INDEX (BP) 32.90 mL/m2 PWs 1.5 cm M-Mode Dimensions EPSS 1.3 cm LA (MM) 3.9 (1.6-4.0cm) Ao Root(MM) 3.5 (2.0-3.7cm) Aortic Valve AoV VTI 0.3 m Ao Mean GR 4.0 mmHg LVOT VTI 0.29 m PEDRO (VMAX) 4.4 cm2 PEDRO (VTI) 4.4 cm2 Mitral Valve MV E Vmax 58.2 cm/s DECEL Time 239 ms MV A Vmax 80.0 cm/s P 1/2 T 46 ms E/A ratio 0.7 MVA (PHT) 4.8 cm2 TDI E/E' Medial 10.6 E/E' Lateral 9.0 Medial E' Peak V 5.50 cm/s Lateral E' Peak V 6.50 cm/s Left Ventricle Left ventricular cavity size is normal. There is normal LV segmental wall motion. There is normal left ventricular wall thickness. LVEF is 60-65%. Indeterminate diastolic dysfunction. Right Ventricle The right ventricle is normal size. The right ventricular systolic function is normal. Atria The left atrium size is normal. The right atrium size is normal. Aortic Valve The aortic valve is normal in structure and function. No aortic regurgitation is present. There is no aortic valvular stenosis. Mitral Valve The mitral valve is mildly thickened but open well. There is no mitral valve regurgitation noted. There is no mitral valve stenosis. Tricuspid Valve The tricuspid valve is normal in structure and function. There is no tricuspid valve regurgitation noted. Pulmonic Valve The pulmonary valve is normal in structure and function. There is no pulmonic va lvular regurgitation. Great Vessels The aortic root is normal in size. The IVC is normal in size and collapses >50% with inspiration. Pericardium Trivial pericardial effusion. No echo indications of pericardial tamponade. Other Information Quality : Technically difficult study due to body habitus. Conclusion LVEF is 60-65%. DICTATED BY: PRUDENCIO DE LA CRUZ MD DATE: 04/11/24 0817 ELECTRONICALLY SIGNED BY: PRUDENCIO DE LA CRUZ MD Assessment/Plan: DISCHARGED DX'S; Hypertensive emergency POA Diastolic dysfunction POA Paroxysmal atrial Fibrillation POA Hypercholesterolemia POA Morbid obesity POA Obstructive sleep apnea on CPAP at home POA Chronic Anemia POA Hypothyroidism Possible secondary hypertension hyperaldosteronism vs pheochromocytoma vs renovascular hypertension, rule out H/o Prostate cancer PLAN: ADMISSION DATE: APRIL 11, 2024 DISCHARGE DATE: APRIL 13, 2024 DISPOSITION: HOME CONDITION: STABLE MUTUEL MACHINE OPERATOR(S): CUPOLA OPERATOR INSULATION'S FOLLOW UP APPOINTMENT(S): PROCEDURES: IMAGING (S) REPORT ATTACHED TO SUMMARY : RENAL ULTRASOUND, HEAD CT, ECHO Normal LV systolic function (LVEF: 60-65% by echo done 04/11/2024) MICROBIOLOGY: REPORT ATTACHED TO SUMMARY; ACTIVITY: AB RUI HOME MEDICATIONS REVIEWED WILL CONTINUE UPON DISCHARGED CHANGES ON HOME MEDICATIONS NONE NEW MEDICATIONS PER CUPOLA OPERATOR INSULATION: continue on telmisartan 80 mg daily (a.m.), labetalol 200 mg BID (AM and PM) and nifedipine ER 30 mg qhs Multaq 400 BID,Levothyroxine 100 mcg daily TEACHING: EMERGENCY INSTRUCTIONS: THE PATIENT WAS INSTRUCTED TO PRESENT TO THE NEAREST EMERGENCY DEPARTMENT OR CALL 911 SHOULD THEIR SYMPTOMS RETURN OR WORSEN. Home Medications: Reported Medications [Baby Aspirin ] No Conflict Check, QODAY 04/11/24 Anastrozole (Arimidex) 1 Mg Tab, 0.25 MG PO DAILY, TAB 04/11/24 [Kerri] No Conflict Check, DAILY 04/11/24 Fluticasone/Umeclidin/Vilanter (Trelegy Ellipta 100-62.5-25) 100-62.5 Blst.w.dev, 1 EACH IH DAILY 04/11/24 Albuterol Sulfate (Albuterol Sulfate) 2.5 Mg/3 Ml (0.083 %) Vial.neb, 90 MG IH BID, INH 04/11/24 [Deslaratadine] No Conflict Check, 5 MG DAILY 04/11/24 Montelukast Sodium (Montelukast Sodium) 10 Mg Tablet, 10 MG PO DAILY, #1 TAB 04/11/24 Omeprazole (Omeprazole) 20 Mg Tab.rapMickiedr, 20 MG PO BID 04/11/24 Labetalol HCl (Labetalol HCl) 200 Mg Tablet, 200 MG PO BID, TAB 04/11/24 Rosuvastatin Calcium (Rosuvastatin Calcium) 5 Mg Tablet, 5 MG PO DAILY, TAB 04/11/24 Losartan Potassium (Losartan Potassium) 50 Mg Tablet, 50 MG PO DAILY, #1 TAB 04/11/24 Telmisartan (Telmisartan) 80 Mg Tablet, 80 MG PO AM, TAB 04/11/24 Discontinued Reported Medications [Alegra] No Conflict Check, DAILY 04/11/24 [Baby Aspirin] No Conflict Check 04/11/24 Anastrozole (Arimidex) 1 Mg Tab, 0.25 MG PO ONCE, TAB 04/11/24 [Kerri] No Conflict Check 04/11/24 Fluticasone/Umeclidin/Vilanter (Trelegy Ellipta 100-62.5-25) 100-62.5 Blst.w.dev, 1 EACH IH ONCE 04/11/24 [Albuterol Sulfate] No Conflict Check 04/11/24 Desloratadine (Desloratadine) 5 Mg Tab.rapdis, 5 MG PO ONCE, TAB 04/11/24 Montelukast Sodium (Montelukast Sodium) 10 Mg Tablet, 10 MG PO ONCE, TAB 04/11/24 Omeprazole (Omeprazole) 20 Mg Tab.rapMickiedr, 20 MG PO BID 04/11/24 Labetalol HCl (Labetalol HCl) 200 Mg Tablet, 200 MG PO BID, TAB 04/11/24 Rosuvastatin Calcium (Rosuvastatin Calcium) 5 Mg Tablet, 5 MG PO ONCE, TAB 04/11/24 Losartan Potassium (Losartan Potassium) 50 Mg Tablet, 50 MG PO ONCE, TAB 04/11/24 Aspirin (ASPIRIN 81 MG ECTAB) 81 Mg Ectab, 81 MG PO QODAY, TAB.EC 11/03/23 D-Methorphan Hb/P-Epd HCl/Bpm (Bromfed Dm Cough Syrup) 2 Mg-30 Mg-10 Mg/5 Ml Syrup, 10 ML PO Q6HPRN PRN for COUGH, ML 11/02/23 Fexofenadine/Pseudoephedrine (Kerri-D 24 Hour Tablet) 180 Mg-240 Mg Tab.er.24h , 1 EACH PO DAILY, TAB 11/02/23 Albuterol Sulfate (Ventolin Hfa) 90 Mcg Hfa.aer.ad, 18 GM IH BID, INHALER 11/02/23 Fluticasone/Umeclidin/Vilanter (Trelegy Ellipta 100-62.5-25) 100-62.5 Blst.w.dev, 1 EACH IH DAILY 11/02/23 Desloratadine (Desloratadine) 5 Mg Tablet, 5 MG PO DAILY, TAB 11/02/23 Hydrochlorothiazide (Hydrochlorothiazide) 12.5 Mg Tablet, 12.5 MG PO DAILY, TAB 11/02/23 Sacubitril/Valsartan (Entresto 97 mg-103 mg Tablet) 97 Mg-103 Mg Tablet, 0.5 EACH PO PM, TAB 11/02/23 Sacubitril/Valsartan (Entresto 97 mg-103 mg Tablet) 97 Mg-103 Mg Tablet, 1 EACH PO DAILY, TAB 11/02/23 Amiodarone HCl (Amiodarone HCl) 200 Mg Tablet, 200 MG PO DAILY, TAB 24 Montelukast Sodium (Montelukast Sodium) 10 Mg Tablet, 10 MG PO DAILY, TAB 24 Omeprazole (Omeprazole) 20 Mg Capsule.dr, 20 MG PO BID, CAP 11/02/23 Celecoxib (Celecoxib) 200 Mg Capsule, 200 MG PO BID, CAP 11/02/23 Labetalol HCl (Labetalol HCl) 200 Mg Tablet, 200 MG PO BID, TAB 11/02/23 Discontinued Scripts Methylprednisolone (Medrol) 4 Mg Tab.ds.pk, 4 MG PO AD, #1 PACK Prov:JUNIOR MCCOLLUM 11/05/23 Cefdinir (Cefdinir) 300 Mg Capsule, 300 MG PO BID, #10 CAP Prov:JUNIOR [facility]CCOLLUM [facility] 11/05/23 Continued Medications: Albuterol Sulfate (Albuterol Sulfate) 2.5 Mg/3 Ml (0.083 %) Vial.neb 90 MG IH BID, INH [Kerri] () DAILY Anastrozole (Arimidex) 1 Mg Tab 0.25 MG PO DAILY, TAB [Baby Aspirin ] () QODAY [Deslaratadine] () 5 MG DAILY Fluticasone/Umeclidin/Vilanter (Trelegy Ellipta 100-62.5-25) 100-62.5 Blst.w.dev 1 EACH IH DAILY Labetalol HCl (Labetalol HCl) 200 Mg Tablet 200 MG PO BID, TAB Montelukast Sodium (Montelukast Sodium) 10 Mg Tablet 10 MG PO DAILY, #1 TAB Omeprazole (Omeprazole) 20 Mg Tab.rap.dr 20 MG PO BID Rosuvastatin Calcium (Rosuvastatin Calcium) 5 Mg Tablet 5 MG PO DAILY, TAB Telmisartan (Telmisartan) 80 Mg Tablet 80 MG PO AM, TAB Discontinued Medications: Losartan Potassium (Losartan Potassium) 50 Mg Tablet 50 MG PO DAILY, #1 TAB Time spent arranging discharge: 31-60 minutes ATTESTATION BY PHYSICIAN I have seen and examined the patient. I reviewed the documentation, medical decision making, and treatment plan as noted by the resident provider above. I agree with the findings and plan of care. Felice Page MD, ELIZABETH NP Apr 13, 2024 12:14
[2024-04-13 14:45] VITALS: BP 127/82
--- NOTE | 2024-04-13 15:35 | NUR ---
PATIENT DISCHARGED HOME ID BAND AND IV REMOVED. DISCHARGE INSTRUCTIONS EXPLAINED AND GIVEN TO PATIENT. PATIENT VERBALIZED UNDERSTANDING. BELONGINGS PACKED AND TAKEN BY PATIENT. WHEELED DOWN TO PRIVATE CAR.
== END 2024-04-13 15:30 | disposition home or self-care (01) | DRG 305 ==
LOC: EDH 23:08 → EDHIP 04-11 01:39 → 3AH 04-12 03:05
PROVIDERS: ADMIT Internal Medicine; ATTEND Internal Medicine
PROC: 5A09357 Assistance with Respiratory Ventilation, Less than 24 Consecutive Hours, Continuous Positive Airway Pressure (ICD-10-PCS; principal; 2024-04-12)
PROC: 5A09357 Assistance with Respiratory Ventilation, Less than 24 Consecutive Hours, Continuous Positive Airway Pressure (ICD-10-PCS; 2024-04-13)
DX: I16.1 Hypertensive emergency (principal); I48.0 Paroxysmal atrial fibrillation; D35.00 Benign neoplasm of unspecified adrenal gland; D64.9 Anemia, unspecified; E03.2 Hypothyroidism due to medicaments and other exogenous substances; T46.2X5A Adverse effect of other antidysrhythmic drugs, initial encounter; E26.9 Hyperaldosteronism, unspecified; G47.33 Obstructive sleep apnea (adult) (pediatric); F10.10 Alcohol abuse, uncomplicated; E66.01 Morbid (severe) obesity due to excess calories; K74.60 Unspecified cirrhosis of liver; J45.909 Unspecified asthma, uncomplicated; Y90.9 Presence of alcohol in blood, level not specified; E78.00 Pure hypercholesterolemia, unspecified; I10 Essential (primary) hypertension; K21.9 Gastro-esophageal reflux disease without esophagitis; Z79.899 Other long term (current) drug therapy; Z83.3 Family history of diabetes mellitus; Z85.46 Personal history of malignant neoplasm of prostate; Z90.79 Acquired absence of other genital organ(s); Z82.49 Family history of ischemic heart disease and other diseases of the circulatory system; Z68.33 Body mass index [BMI] 33.0-33.9, adult
CPT/HCPCS: 36415; 70450; 71045; 76770; 80048; 80053; 80061; 80305; 81001; 82382; 82948; 83150; 83735; 83880; 84156; 84436; 84439; 84443; 84484; 84585; 85025; 85610; 93005; 93306; 94010; 99285; G0378; J0360; J3475

== ENCOUNTER 2024-06-05 06:00 | Day surgery (SDC) | payer OTHER ==
[2024-06-03 14:11] VITALS: BP 139/77; PULSE 57; RESP 16; TEMP 97.9
[2024-06-03 14:18] LABS: BASOPHILS # (AUTO) 0.07 K/uL (0.00-0.20); BASOPHILS % (AUTO) 1.1 % (0.0-5.0); EOSINOPHILS # (AUTO) 0.04 K/uL (0.00-0.70); EOSINOPHILS % (AUTO) 0.6 % (0.0-8.0); HEMATOCRIT 41.2 % (42-54); IMMATURE GRANULOCYTE ABSOLUTE 0.05 K/uL (0-1); LYMPHOCYTES # (AUTO) 0.5 K/uL (1.0-4.8); LYMPHOCYTES % (AUTO) 8.3 % (21.0-51.0); MEAN CORPUSCULAR HEMOGLOBIN 34.7 pg (27.0-33.0); MONOCYTES # (AUTO) 0.8 K/uL (0.1-1.0); MONOCYTES % (AUTO) 12.6 % (3.0-13.0); NEUTROPHILS # (AUTO) 4.9 K/uL (1.8-7.7); NEUTROPHILS % (AUTO) 76.6 % (40.0-77.0); PLATELET COUNT (AUTO) 168 K/uL (130-400); RED BLOOD CELL COUNT(AUTO) 4.04 MIL/uL (4.50-6.20); RED CELL DISTRIBUTION WIDTH 13.7 % (11.0-15.5); WHITE BLOOD COUNT (AUTO) 6.4 K/uL (4.8-10.8)
--- NOTE | 2024-06-03 14:23 | EKG ---
[facility] Test Date: 2024-06-03 Test Time: 15:01:13 Pat Name: IVELISSE PRESSLEY Department: [facility] Room: [facility] Gender: M Booth Manager: [id number] : 1960 Requested By: TAMELA MAYFIELD Order Number: [id number] Reading MD: Ros Rodrigez Measurements Intervals [place] Rate: 54 P: 66 [place]: 209 QRS: -37 QRSD: 124 T: 60 QT: 538 QTc: 513 Interpretive Statements Sinus rhythm IVCD, consider RBBB Inferior infarct, old Prolonged QT interval Compared to ECG 04/13/2024 09:01:26 Prolonged QT interval now present Left-axis deviation no longer present Myocardial infarct finding still present Electronically Signed On 06-06-2024 08:16:24 RAILWAYS ASSISTANT by Ros Rodrigez Please click the below link to view image of tracing.
[2024-06-03 14:31] LABS: CREATININE 1.2 mg/dL (0.5-1.3); POTASSIUM 4.7 mmol/L (3.5-5.1)
[2024-06-03 14:33] LABS: INR 1.07 (0.85-1.15); PROTHROMBIN TIME 11.9 SEC (9.6-11.6)
[2024-06-03 14:34] LABS: PARTIAL THROMBOPLASTIN TIME 31.1 SEC (26.3-35.5)
[2024-06-03 14:41] LABS: B-TYPE NATRIURETIC PEPTIDE 50 pg/mL (0-100)
--- NOTE | 2024-06-03 14:57 | HMCIMG ---
CHEST 1VW HISTORY: Preop COMPARISON: 04/10/2024 FINDINGS: A frontal projection of the chest was obtained. Prominent interstitial markings are seen with possible superimposed infiltrates. The heart is borderline enlarged. Degenerative changes are seen. No evidence of aortic calcification is seen. IMPRESSION: 1. Prominent interstitial markings are seen with possible superimposed infiltrates.
--- NOTE | 2024-06-04 13:20 | NUR ---
RE: CXR REPORTED CXR RESULTS TO DR MAYFIELD, NO NEW ORDERS RECEIVED.
[2024-06-05] VITALS (8 sets, daily range): BP systolic 124–137; BP diastolic 70–79; PULSE 51–61; RESP 12–16; TEMP 97–97.4
[~2024-06-05] VITALS: Ht 175.3 cm; Wt 102.6 kg
[~2024-06-05 06:00] MED LIST changes: -ALBU18HF7 IH; +ALBU2.5V2 IH; -AMIO200T68 PO; -BROM118S48 PO; -CEFD300C3 PO; -CELE-125 PO; +DRON400T7 PO; -HYDR12.54 PO; +LABE100T7 PO; -LABE200T7 PO; +LEVO100C4 PO; -METH4TAB3 PO; +NIFE-78 PO; +OMEP-420 PO; -OMEP20CA12 PO; +ROSU5TAB51 PO; -SACU1TAB4 PO; +TELM80TA10 PO
[2024-06-05] MEDS: 0.9%NACL 1000ML 1,000 ML IV SCH (06:18)
[2024-06-05] MEDS ORDERED: HEParin-NS 1,000 UNIT/500 ML 1,000 ML IV ONE (07:12)
[2024-06-05] MEDS ORDERED: HEParin 10,000 UNIT/10ML (1,000 UNIT/ML) VIAL ONE (07:12)
[2024-06-05] MEDS ORDERED: LIDOCAINE HCL 400MG/20ML VIAL ONE (07:12)
[2024-06-05] MEDS ORDERED: NITROGLYCERIN 50MG VIAL ONE (07:13)
[2024-06-05] MEDS ORDERED: IOHEXOL 350 MG/ML 100ML INFUS..BTL IV ONE (07:15)
[2024-06-05] MEDS ORDERED: MIDAZOLAM HCL 1 MG/ML 2ML VIAL ONE (07:21)
[2024-06-05] MEDS ORDERED: FENTanyl CITRate PF 50 MCG/1 ML 2ML VIAL ONE (07:21)
[2024-06-05] MEDS ORDERED: niCARDIpine 25MG INJ IV ONE (07:22)
[2024-06-05] MEDS ORDERED: DEXTROSE 50%-WATER 50 ML DISP.SYRIN IV PRN (08:30)
[2024-06-05] MEDS ORDERED: GLUCAGON 1MG KIT 1 MG ML IM PRN (08:30)
[2024-06-05] MEDS ORDERED: 0.9%NACL 1000ML 1,000 ML IV SCH (08:30)
--- NOTE | 2024-06-05 10:57 | PRN ---
PROCEDURE NOTE Indications: 1. WRIGHT 2. Abnormal coronary CTA 3. Paroxysmal atrial fibrillation, not on anticoagulation 4. HTN 5. Normal left ventricle systolic function (LVEF > 55% by echocardiogram done in Mar 2024) Procedures: Coronary angiogram Introduction: After informed written consent was obtained, the patient was brought to the Catheterization Lab in the usual fasting state. Following sterile prep and drape, a time out was performed, then moderate sedation was administered, 1mg of Versed and 50mcg of Fentanyl, then 1% Lidocaine was infiltrated into the right wrist. Using a Modified Seldinger technique, a 6Fr Sheath was inserted into the right radial artery. While under fluoroscopic guidance, diagnostic coronary catheters were advanced over a wire into the central circulation where they were aspirated, flushed and placed to pressure monitoring, once the wire was removed. Coronary Angio: The left and right coronary arteries were engaged with appropriate catheters and angiography was performed under continuous pressure monitoring. Cardiac Findings: Right dominant system LM: Large caliber vessel with mild luminal irregularities. The vessel bifurcates into the LAD and LCX. LAD: Large caliber vessel with 20% stenosis in the proximal LAD. The vessel bifurcates into a dual LAD system after the 1st septal artery. LAD 1: Medium caliber vessel with 40-50% stenosis in the proximal segment of the artery. Diagonal 1 (comes off the LAD 1): Medium caliber vessel with mild luminal irregularities LAD 2: Medium caliber vessel with 30% stenosis in the proximal segment of the artery LCx: Large caliber vessel with 20% stenosis in the mid LCX and 40-50% stenosis in the mid to distal LCX. The rest of vessel has mild luminal irregularities. OM 1: Small caliber vessel with mild luminal irregularities RCA: Large caliber vessel with 30-40% stenosis in the proximal RCA and diffuse 20% stenosis in the mid RCA. The rest of vessel has mild luminal i rregularities. RPDA: Medium caliber vessel mild luminal irregularities. RPLV: Medium caliber vessel with mild luminal irregularities. Medications given: Versed 2mg, Fentanyl 100mcg, nicardipine 400mcg, nitroglycerin 200mcg, heparin 5000 units Coronary Intervention: None Complications: None Conscious Sedation Monitoring: Under my direct order and supervision, medication for moderate conscious sedation was administered by the nursing staff and the patients level of consciousness and physiological status was monitored by an independent trained nurse. Closure of Access Site: After the case completed the sheath was pulled and a TR band was applied to the right radial artery until hemostasis was obtained. The patient tolerated the procedure well and without issue. Conclusion: 1. WRIGHT, not cardiac in origin 2. Nonobstructive CAD (LAD 1, LAD 2, LCX, and RCA) 3. Abnormal coronary CTA 4. Paroxysmal atrial fibrillation, not on anticoagulation 5. HTN 6. Normal left ventricle systolic function, estimated LVEF > 55% by echocardiogram done in March of 2024 Recommendation: 1. Continue goal-directed medical therapy 2. Wrist precautions 3. 3 hours of bedrest 4. Please an active TR band removal per protocol. 5. Start NS at 100 mL/hour x2 hours 6. Okay to DC once the TR band has been removed in the right wrist is soft, and free of bruising, bleeding, and or hematoma formation. 7. No driving for the next 48 hours 8. No heavy lifting or strenuous exercise for the next two weeks. 9. Please have the patient follow up with Dr. Machado in 1-2 weeks. TAMELA MACHADO MD Jun 05, 2024 10:57
--- NOTE | 2024-06-05 11:12 | NUR ---
Full and complete discharge instructions given to Patient and Girlfriend both verbally and in writing. All questions answered. Voiced understanding to Angiogram with Radial precautions expected follow up. Patient denies c/o pain or discomfort. Voided moderate amount of clear yellow urine x 1. VASC Band removed safely prprotocol. Applied dressing and light [place]. Radial site soft without evidence of bleeding, bruising or hematoma. Radial pulses intact to BUE's. PIV removed with catheter tip intact. Dr. Machado spoke with Patient and GF at length. Addendum: 06/05/24 at 1151 by VICTOR MANUEL BRIONES RN RN Remains unchanged. W/C to POV with Girlfriend to home
== END 2024-06-05 11:50 | disposition home or self-care (01) ==
LOC: DAH 06:00
PROVIDERS: ATTEND Internal Medicine Cardiovascular Disease
DX: R06.09 Other forms of dyspnea (principal); I25.10 Atherosclerotic heart disease of native coronary artery without angina pectoris; I25.84 Coronary atherosclerosis due to calcified coronary lesion; R93.1 Abnormal findings on diagnostic imaging of heart and coronary circulation; I48.0 Paroxysmal atrial fibrillation; I10 Essential (primary) hypertension; J45.909 Unspecified asthma, uncomplicated; E78.5 Hyperlipidemia, unspecified; K21.9 Gastro-esophageal reflux disease without esophagitis; G47.30 Sleep apnea, unspecified; Z79.01 Long term (current) use of anticoagulants; Z99.89 Dependence on other enabling machines and devices; Z85.46 Personal history of malignant neoplasm of prostate; Z79.82 Long term (current) use of aspirin; Z79.899 Other long term (current) drug therapy
CPT/HCPCS: 80048; 83880; 85025; 85610; 85730; 36415; 71045; 93005; 93454; C1769; C1894; A4649; J3010; J3490 ×3; J1644 ×2; J2250; Q9967; A4215; A4222; A6260; A4221; A4663; A4216; A6206; A6258; A4606; Q9965; A4223 ×3; 96360; 96361; 99156; 99157

== ENCOUNTER 2024-11-06 11:33 | Inpatient (IN) | payer OTHER ==
[~2024-11-06] VITALS: Ht 172.7 cm; Wt 101.1 kg
[~2024-11-06 11:33] MED LIST changes: -LEVO100C4 PO; +LEVO100C5 PO
--- NOTE | 2024-11-06 12:23 | EKG ---
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
[2024-11-06 12:25] LABS: BASOPHILS # (AUTO) 0.03 K/uL (0.00-0.20); BASOPHILS % (AUTO) 0.3 % (0.0-5.0); EOSINOPHILS # (AUTO) 0.02 K/uL (0.00-0.70); EOSINOPHILS % (AUTO) 0.2 % (0.0-8.0); HEMATOCRIT 36.9 % (42-54); IMMATURE GRANULOCYTE ABSOLUTE 0.07 K/uL (0-1); LYMPHOCYTES # (AUTO) 0.5 K/uL (1.0-4.8); LYMPHOCYTES % (AUTO) 4.7 % (21.0-51.0); MEAN CORPUSCULAR HEMOGLOBIN 34.1 pg (27.0-33.0); MEAN CORPUSCULAR HGB CONC 36.9 g/dL (32.0-36.0); MEAN CORPUSCULAR VOLUME 92.5 fL (79-99); MONOCYTES # (AUTO) 1.2 K/uL (0.1-1.0); NEUTROPHILS # (AUTO) 8.8 K/uL (1.8-7.7); NEUTROPHILS % (AUTO) 83.1 % (40.0-77.0); PLATELET COUNT (AUTO) 259 K/uL (130-400); RED BLOOD CELL COUNT(AUTO) 3.99 MIL/uL (4.50-6.20); WHITE BLOOD COUNT (AUTO) 10.6 K/uL (4.8-10.8)
[2024-11-06 12:38] LABS: CREATININE 1.4 mg/dL (0.5-1.3); POTASSIUM 4.9 mmol/L (3.5-5.1)
--- NOTE | 2024-11-06 12:44 | NUR ---
NA-117, CHLORIDE- 86 ERMD MADE AWARE
--- NOTE | 2024-11-06 13:28 | ERN ---
ED Note History of Present Illness Stated Complaint: SOB Chief Complaint: Shortness of Breath Time Seen by MD: 11:35 Time Seen by Midlevel: 11:40 Dictation: 64-year-old male with a history of hypertension coming in with complaints of shortness a breath onset . Patient states on he was diagnosed with COVID his PCP placed him on Paxlovid in his Z-Patel. Continued with the same symptoms and was told to return to the hospital to rule out pneumonia. Patient states he recently started hydrochlorothiazide 12.5 mg yesterday. Allergies: Coded Allergies: propoxyphene (Unverified Allergy, Intermediate, RASH, 11/02/23) Home Meds Reported Medications Aspirin (ASPIRIN 81 MG ECTAB) 81 Mg Ectab, 81 MG PO DAILY, TAB.EC MON/MON/MON/SUN 06/03/24 Fexofenadine/Pseudoephedrine (Kerri-D 24 Hour Tablet) 180 Mg-240 Mg Tab.er.24h, 1 EACH PO DAILY PRN for ALLERGIES, TAB 06/03/24 Levothyroxine Sodium (Levothyroxine) 100 Mcg Capsule, 100 MCG PO ACBKFST, CAP 06/03/24 Nifedipine (Nifedipine ER) 30 Mg Tablet.er, 30 MG PO HS, TAB 06/03/24 Desloratadine (Desloratadine) 5 Mg Tablet, 5 MG PO DAILY, TAB 06/03/24 Dronedarone Hydrochloride (Multaq) 400 Mg Tablet, 400 MG PO BID, TAB 06/03/24 Labetalol HCl (Labetalol HCl) 100 Mg Tablet, 100 MG PO BID, TAB 06/03/24 Fluticasone/Umeclidin/Vilanter (Trelegy Ellipta 100-62.5-25) 100-62.5 Blst.w. dev, 1 EACH IH DAILY 04/11/24 Albuterol Sulfate (Albuterol Sulfate) 2.5 Mg/3 Ml (0.083 %) Vial.neb, 90 MG IH BID, INH 04/11/24 Montelukast Sodium (Montelukast Sodium) 10 Mg Tablet, 10 MG PO HS, #1 TAB 04/11/24 Omeprazole (Omeprazole) 20 Mg Tab.rap.dr, 20 MG PO BID 04/11/24 Rosuvastatin Calcium (Rosuvastatin Calcium) 5 Mg Tablet, 5 MG PO DAILY, TAB 04/11/24 Telmisartan (Telmisartan) 80 Mg Tablet, 80 MG PO AM, TAB 04/11/24 Past Medical History Past Medical History: Asthma, High Cholesterol, Hypertension, Liver Disease Additional Past Medical Hx: PROSTATE CANCER, SLEEP APNEA, FATTY LIVER Surgical History: None Surgical History Other: LEFT KNEE, PROSTATE SX, Review of System Dictation Constitutional: Negative for fever,chills, and weight loss Eyes: Negative for injury, pain,redness, and discharge ENT: Negative for injury,pain or swelling Cardiovascular: Negative for chest pain, palpitations, and edema Respiratory: Negative for shortness of breath, cough, and wheezing, Abdomen/GI: Negative for abdominal pain, nausea, vomiting, diarrhea, and constipation Back: Negative for injury and pain : Negative for injury, bleeding and discharge MS/Extremity: Negative for injury and deformity Skin: Negative for rash, and discoloration Neuro: Negative for headache, weakness, numbness, tingling, and seizure Psych: Negative for suicide ideation, homicidal ideation, and hallucinations Review of Systems: was completed Initial Vital Sign VS Vital Signs Date Time Temp Pulse Resp B/P (MAP) Pulse Ox O2 Delivery O2 Flow Rate FiO2 11/06/24 11:53 97.9 66 20 109/68 98 Room Air Physical Exam Dictation General: awake, alert, NAD Head/Face: Normocephalic, atraumatic Eyes: PERRL, EOMI, vision at baseline ENT: oral cavity clear, TMs clear, no signs of infection Neck: Trachea midline, supple, no nuchal rigidity Cardiovascular: RRR, normal S1/S2, No MRGs, no JVD Respiratory: CTAB, no respiratory distress, No rales or wheezes Abdomen: Soft, non-tender, non-distended, normal bowel sounds, no guarding or rebound. Skin: Warm, dry, normal turgor, no rash MS/Extremity: Pulses equal, no cyanosis, neurovascular intact, FROM Neuro: COAx4, GCS 15, strength 5/5, CN 2-12 intact, normal cerebellar exam, normal gait, Psych: Normal behavior, mood, and affect normal Results (Laboratory/Radiology) Laboratory/Radiology Laboratory Tests Test 11/06/24 12:07 White Blood Count 10.6 K/uL (4.8-10.8) Red Blood Count 3.99 MIL/uL (4.50-6.20) L Hemoglobin 13.6 g/dL (14.0-18.0) L Hematocrit 36.9 % (42-54) L Mean Corpuscular Volume 92.5 fL (79-99) Mean Corpuscular Hemoglobin 34.1 pg (27.0-33.0) H Mean Corpuscular Hemoglobin Concent 36.9 g/dL (32.0-36.0) H Red Cell Distribution Width 12.0 % (11.0-15.5) Platelet Count 259 K/uL (130-400) Mean Platelet Volume 9.4 fL (7.5-10.5) Immature Granulocyte % (Auto) 0.7 % (0-1) Neutrophils (%) (Auto) 83.1 % (40.0-77.0) H Lymphocytes (%) (Auto) 4.7 % (21.0-51.0) L Monocytes (%) (Auto) 11.0 % (3.0-13.0) Eosinophils (%) (Auto) 0.2 % (0.0-8.0) Basophils (%) (Auto) 0.3 % (0.0-5.0) Neutrophils # (Auto) 8.8 K/uL (1.8-7.7) H Lymphocytes # (Auto) 0.5 K/uL (1.0-4.8) L Monocytes # (Auto) 1.2 K/uL (0.1-1.0) H Eosinophils # (Auto) 0.02 K/uL (0.00-0.70) Basophils # (Auto) 0.03 K/uL (0.00-0.20) Absolute Immature Granulocyte (auto 0.07 K/uL (0-1) Nucleated Red Blood Cells 0.0 % (0.0-0.19) White Cell Morphology Comment See comments Red Blood Cell Morphology NORMAL Sodium Level 117 mmol/L (136-145) L Potassium Level 4.9 mmol/L (3.5-5.1) Chloride Level 86 mmol/L (101-111) *L Carbon Dioxide Level 19 mmol/L (21-32) L Blood Urea Nitrogen 24 mg/dL (7-18) H Creatinine 1.4 mg/dL (0.5-1.3) H Glomerular Filtration Rate Calc 56 mL/min (>90) Random Glucose 101 mg/dL (70-105) Total Calcium 8.8 mg/dL (8.5-10.1) Troponin I High Sensitivity 6 ng/L (4-75) Labs Reviewed?: Yes ED Course ED Course Orders Procedure Category Date Status Time Cbc With Differential LAB 11/06/24 Complete 11:49 Basic Metabolic Panel LAB 11/06/24 Complete 11:49 Chest 1vw RAD 11/06/24 Taken 11:49 Troponin I High LAB 11/06/24 Complete Sensitivity 11:49 12 Lead Ekg Tracing- EKG 11/06/24 Complete Technical 11:49 Nephrology Consult CONPHYSVC 11/06/24 Transmitted 12:55 Nephrology Consult CONPHYSVC 11/06/24 Transmitted 13:02 Urinalysis Profile LAB 11/06/24 Logged 13:02 Vital Signs Date Time Temp Pulse Resp B/P (MAP) Pulse Ox O2 Delivery O2 Flow Rate FiO2 11/06/24 11:53 97.9 66 20 109/68 98 Room Air Medical Decision Making MDM MDM: 64-year-old male with a history of hypertension coming in with complaints of shortness a breath onset . Patient states on he was diagnosed with COVID his PCP placed him on Paxlovid in his Z-Patel. Continued with the same symptoms and was told to return to the hospital to rule out pneumonia. Patient states he recently started hydrochlorothiazide 12.5 mg yesterday. Low work shows hyponatremia at 1:17 a.m., hypochloremia at 89, kidney function is 1.4. Patient denies having any nausea or vomiting or diarrhea however states was recently placed on hydrochlorothiazide yesterday. Spoke to Dr. Ornelas. Differential diagnosis: Pneumonia, COVID, URI, ACS Rationale: Tests considered and ordered secondary to shared decision making include: labs, ECG and radiology Previous outside records reviewed: Old ER visits. Risk of complication and/or morbidity or mortality of patient management: None Medications-Per medication reconciliation Need for hospitalization: Patient does meet criteria for hospitalization. Need for emergency major/minor surgery: No There are no social concerns with this patient. Prescription drug management Prescriptions will include symptomatic care Patient's prior external medical records from other ER visits were reviewed by me as indicated. Prior testing and results from previous visits were reviewed. Prior tests were taken into account with medical decision making and resource utilization, independent historian/historians were used to obtain complete medical history. I independently interpreted the test that were performed, results were reviewed by me and considered findings on radiology if ordered. Medical management and examination interpretation discussions were had by me with other qualified healthcare professionals as indicated for the patient's care. DX & DISP Disposition: Inpatient Departure Impression: Primary Impression: Hyponatremia Additional Impression: Hypochloremia Condition: Stable Referrals: TAMELA MAYFIELD MD (PCP) Time of Disposition: 13:25 I have reviewed the case, and I agree with, Diagnosis and Plan SHANNEN KUMARI NP Nov 06, 2024 13:27
[2024-11-06] MEDS ORDERED: acetaMINOPHEN 500 MG TABLET PO PRN (14:00)
[2024-11-06] MEDS ORDERED: PoTASSium chloRIDE 20MEQ ER 20 MEQ ERTAB PO PRN (14:30)
[2024-11-06] MEDS ORDERED: PoTASSium chloRIDE 20MEQ/100ML 100 ML IV PRN (14:30)
[2024-11-06] MEDS ORDERED: PoTASSium chl 10% ELIXIR 20MEQ 20 MEQ/15 ML UDCUP PO PRN (14:30)
[2024-11-06] MEDS: 0.9%NACL 1000ML 500 ML IV SCH (14:48)
[2024-11-06 14:55] LABS: CREATININE 1.2 mg/dL (0.5-1.3); POTASSIUM 5.3 mmol/L (3.5-5.1)
--- NOTE | 2024-11-06 14:56 | HMCIMG ---
Exam Type: CHEST 1VW Clinical Information: cough,sob Comparison: None Findings: The lungs are clear of infiltrates. The heart is normal in size. The bony and soft tissue structures of the chest are unremarkable. Impression: Clear lungs.
[2024-11-06 14:58] LABS: APPEARANCE,URINE CLEAR (CLEAR); BILIRUBIN,URINE NEGATIVE (NEGATIVE); COLOR,URINE YELLOW (YELLOW); GLUCOSE, URINE (UA) NEGATIVE (NEGATIVE); KETONES,URINE 10 mg/dL (NEGATIVE); LEUKOCYTE ESTERASE ,URINE NEGATIVE Leu/uL (NEGATIVE); NITRATE,URINE NEGATIVE (NEGATIVE); OCCULT BLOOD,URINE NEGATIVE (NEGATIVE); PH,URINE 5.5 (5.0-8.0); PROTEIN,URINE NEGATIVE (NEGATIVE); UROBILINOGEN,URINE 0.2 mg/dL (0.2-1.0)
[2024-11-06 15:00] LABS: ADD UA MICROSCOPIC NO
[2024-11-06 15:00] LABS: SARS-CoV-2, RNA, NAAT NEGATIVE SARS CoV-2 (NEGATIVE)
--- NOTE | 2024-11-06 15:00 | NUR ---
CHLORIDE 86 ERMD MADE AWARE
[2024-11-06 15:03] VITALS: PULSE 68; RESP 20; O2SAT 97
[2024-11-06 15:03] LABS: ABG BASE EXCESS -3.6 mmol/L (-2.0-3.0); ABG HCO3 17.8 mmol/L (21.0-28.0); ABG OXYGEN SATURATION 97.5 % (94.0-98.0); ABG PCO2 24 mmHg (35-48); ABG PH 7.497 (7.350-7.450); CARBON MONOXIDE 0.7 % (0.5-1.5); HHb 2.5; PO2, ARTERIAL BG 94.2 mmHg (83.0-108.0); VENT MODE, BG RA (ROOM AIR)
[2024-11-06 15:11] LABS: SODIUM,URINE RANDOM 16 mmol/l (40-220)
[2024-11-06] MEDS: SODIUM ZIRCONIUM CYCLOSILICATE 5 GM POWD.PACK PO ONE (15:49)
--- NOTE | 2024-11-06 15:52 | NUR ---
ARIEL ALEJANDRO CLIENT RELATIONS SPECIALIST AT BEDSIDE FOR CC CONSULT
--- NOTE | 2024-11-06 15:56 | HP ---
[facility] HISTORY AND PHYSICAL Date of Service: Nov 06, 2024 Time of Service: 15:56 HISTORY OF PRESENT ILLNESS: A 64-year-old male with past medical history of atrial fibrillation, hypertension, hyperlipidemia presented to the hospital shortness of breath. The patient was recently diagnosed with COVID by his primary care provider and was placed on Paxlovid. He took the medication for five days. Since finishing the course patient states he has been feeling short of breath at rest and with exertion. He denies any chest pain, abdominal pain, nausea vomiting. Denied any confusion, seizure-like activity, falls, syncopal episode. States he has been mostly drinking electrolyte rich solution at home. He has not been drinking more than usual. He drinks only when he is thirsty. Denied any abdominal pain, diarrhea, fever, chills. Denied any cough. He only takes aspirin every other day for AFib. He is not on any anticoagulation. Labs were notable for white count of 10.6, hemoglobin was 13.6, platelet count was 259 K, sodium on presentation was 117, potassium was 4.9, creatinine was 1.4, bicarb was 19, BUN was 24, troponin was negative x1 Chest x-ray was noted to be clear REVIEW OF SYSTEMS CONSTITUTIONAL: Denies fevers, chills, or night sweats. No unintentional weight loss reported. NEUROLOGICAL: Denies headache, amaurosis fugax, motor weakness, sensory deficit, vertigo/spinning sensation, gait abnormalities, or tremors. ENT: No hearing loss, otalgia, otorrhea, rhinitis, rhinorrhea, hoarseness, or sore throat. CARDIOVASCULAR: Denies any exertional angina, dyspnea on exertion, orthopnea, paroxysmal nocturnal dyspnea, palpitations, life-threatening arrhythmias, claudication. PULMONARY: Positive for shortness of breaths. Denied any cough, sputum production GASTROINTESTINAL: Denies any type of dysphagia to either liquids or solids. Denies nausea, vomiting, pyrosis, early satiety, abdominal pain, diarrhea, constipation, or changes in stool consistency or caliber. Denies coffee-ground emesis, hematemesis, hematochezia, or melanotic stools. GENITOURINARY: Denies frequency, urgency, nocturia, hematuria or incontinence (Storage/Irritative symptoms.) Low urinary stream, straining to void, urinary intermittency or hesitancy, splitting of the voiding stream, terminal dribbling. ENDOCRINOLOGIC: Denies polyuria, polydipsia, polyphagia or heat/cold intolerances. HEMATOLOGIC: Denies thrombophilia/previous clots, or coagulopathy/bleeding disorders. ONCOLOGIC: Denies personal history of malignancy. DERMATOLOGIC: Denies rashes or pruritus. PSYCHIATRIC: Denies any suicidal or homicidal ideation. Denies hallucinations. PAST MEDICAL HISTORY: Atrial fibrillation, hypertension, hyperlipidemia PAST SURGICAL HISTORY: History of prostate surgery, history of left knee surgery PAST SOCIAL HISTORY: Denied any smoking, alcohol, drug use FAMILY HISTORY: Denied any pertinent Coded Allergies: propoxyphene (Unverified Allergy, Intermediate, RASH, 11/02/23) PHYSICAL EXAM GENERAL APPEARANCE: The patient is awake, alert, and oriented, in no acute cardiopulmonary distress. NEUROLOGICAL: Cranial nerves II-XII grossly intact. Motor is 5/5 in bilateral upper and lower extremities proximal to distal. No sensory deficits. HEENT: Face is symmetric. Pupils are equal and reactive. Extraocular movements are intact. NECK: Supple. No JVD. No thyromegaly. No submental, submandibular, pre- /postauricular, occipital or supraclavicular lymphadenopathy. CHEST: Normal chest expansion. No Telemetry. LUNGS: Absence of any rales, rhonchi or any wheezing. CARDIOVASCULAR: Regular. S1 and S2 normal. No appreciable rubs, murmurs or gallops. ABDOMEN: Soft, nontender, and nondistended. There is no rebound, voluntary guarding, or rigidity. : Deferred. No Guevara. EXTREMITIES: Non-edematous and not cyanotic. No clubbing. Good capillary refill. SKIN: No skin breakdown. Vital Sign (Last 24 Hours) 11/06/24 11/06/24 11:53 15:03 Temp 97.9 Pulse 68 Resp 20 B/P (MAP) 109/68 Pulse Ox 98 O2 Delivery N/A Room Air FiO2 21 LABS: Laboratory: Test 11/06/24 15:01 11/06/24 14:45 11/06/24 14:22 11/06/24 14:20 Range/Units Blood Gas Specimen Type Arterial Arterial Blood pH 7.497 H 7.350-7.450 Arterial Blood Partial Pressure CO2 24 L 35-48 mmHg Arterial Blood Partial Pressure O2 94.2 83.0-108.0 mmHg Arterial Blood HCO3 17.8 L 21.0-28.0 mmol/L Arterial Blood Oxygen Saturation 97.5 94.0-98.0 % Arterial Blood Base Excess -3.6 L -2.0-3.0 mmol/L Hemoglobin (Blood Gas) 13.4 L 13.5-17.5 g/dL Sodium (Blood Gas) 118 L 136-145 MMOL/L Bedside Potassium (Blood Gas) 5.0 H 3.4-4.5 MMOL/L Bedside Chloride (Blood Gas) 88 *L 98-107 MMOL/L Bedside Glucose (Blood Gas) 82 65-95 MG/DL Bedside Ionized Calcium (Blood Gas) 1.13 L 1.15-1.33 MMOL/L Bedside Lactic Acid (Blood Gas) 2.40 H 0.36-0.75 MMOL/L Blood Gas Temperature 37.0 35.5-37.0 CELSIUS Blood Gas Vent Mode RA ROOM AIR FiO2 21.0 % Blood Gas Specimen Comment LR,SANDY Urine Color YELLOW YELLOW Urine Appearance CLEAR CLEAR Urine pH 5.5 5.0-8.0 Urine Specific [place] 1.022 1.001-1.031 Urine Protein NEGATIVE NEGATIVE mg/dL Urine Glucose (UA) NEGATIVE NEGATIVE mg/dL Urine Ketones 10 H NEGATIVE mg/dL Urine Occult Blood NEGATIVE NEGATIVE Urine Nitrate NEGATIVE NEGATIVE Urine Bilirubin NEGATIVE NEGATIVE mg/dL Urine Urobilinogen 0.2 0.2-1.0 mg/dL Urine Leukocyte Esterase NEGATIVE NEGATIVE Cathy/uL Urine Random Sodium 16 L 40-220 mmol/l Sodium Level 118 L 136-145 mmol/L Potassium Level 5.3 H 3.5-5.1 mmol/L Chloride Level 86 *L 101-111 mmol/L Carbon Dioxide Level 22 21-32 mmol/L Blood Urea Nitrogen 25 H 7-18 mg/dL Creatinine 1.2 0.5-1.3 mg/dL Glomerular Filtration Rate Calc 68 >90 mL/min Random Glucose 90 70-105 mg/dL Total Calcium 9.0 8.5-10.1 mg/dL SARS-CoV-2, RNA, NAAT NEGATIVE SARS CoV-2 NEGATIVE Test 11/06/24 12:07 Range/Units White Blood Count 10.6 4.8-10.8 K/uL Red Blood Count 3.99 L 4.50-6.20 MIL/uL Hemoglobin 13.6 L 14.0-18.0 g/dL Hematocrit 36.9 L 42-54 % Mean Corpuscular Volume 92.5 79-99 fL Mean Corpuscular Hemoglobin 34.1 H 27.0-33.0 pg Mean Corpuscular Hemoglobin Concent 36.9 H 32.0-36.0 g/dL Red Cell Distribution Width 12.0 11.0-15.5 % Platelet Count 259 130-400 K/uL Mean Platelet Volume 9.4 7.5-10.5 fL Immature Granulocyte % (Auto) 0.7 0-1 % Neutrophils (%) (Auto) 83.1 H 40.0-77.0 % Lymphocytes (%) (Auto) 4.7 L 21.0-51.0 % Monocytes (%) (Auto) 11.0 3.0-13.0 % Eosinophils (%) (Auto) 0.2 0.0-8.0 % Basophils (%) (Auto) 0.3 0.0-5.0 % Neutrophils # (Auto) 8.8 H 1.8-7.7 K/uL Lymphocytes # (Auto) 0.5 L 1.0-4.8 K/uL Monocytes # (Auto) 1.2 H 0.1-1.0 K/uL Eosinophils # (Auto) 0.02 0.00-0.70 K/uL Basophils # (Auto) 0.03 0.00-0.20 K/uL Absolute Immature Granulocyte (auto 0.07 0-1 K/uL Nucleated Red Blood Cells 0.0 0.0-0.19 % White Cell Morphology Comment See comments Red Blood Cell Morphology NORMAL D-Dimer Quantitative (PE/DVT) 782 *H 0-500 ng/mL Troponin I High Sensitivity 6 4-75 ng/L Current Medications Medications (Trade) Dose Ordered Sig/Brendon Route PRN Reason Start Time Stop Time Status Last Admin Dose Admin Acetaminophen (TYLenol 500MG TAB) 500 mg Q6H PRN PO MILD PAIN (1-3) 11/06/24 14:00 12/06/24 13:59 Albuterol (DUOneb) 1 UDVIAL Q6H PRN IH SHORTNESS OF BREATH 11/06/24 14:00 12/06/24 13:59 Famotidine (Pepcid 20mg Vial) 20 mg BID IV 11/06/24 21:00 12/06/24 20:59 Potassium Chloride 100 ml @ 100 mls/hr AD PRN IV POTASSIUM PROTOCOL 11/06/24 14:30 12/06/24 14:29 Potassium Chloride (K-Dur/Klor-Con 20meq) 20 meq AD PRN PO POTASSIUM PROTOCOL 11/06/24 14:30 12/06/24 14:29 Potassium Chloride (KCl 10% Elixir 20meq/15ml) 20 meq AD PRN PO POTASSIUM PROTOCOL 11/06/24 14:30 12/06/24 14:29 Sodium Chloride 500 ml @ 75 mls/hr Q6H40M IV 11/06/24 14:00 12/06/24 13:59 11/06/24 14:48 75 MLS/HR DIAGNOSTICS / RADIOLOGY: [ ] ASSESSMENT: Severe hyponatremia asymptomatic POA Shortness of breaths differential secondary to recent COVID versus possible PE Atrial fibrillation Hypertension Hyperlipidemia Obesity BMI 31.7 History of HEATHER Recent COVID infection treated as outpatient with Paxlovid PLAN: - patient to be admitted to ICU -in reference to hyponatremia. We will trend sodium q.4 hours. We will start patient on gentle hydration with NS. The patient currently is asymptomatic at this time. Increase sodium by 4-6 mEq in 24 hours. Obtain urine sodium, serum osmolarity. We will request consultation with critical Care and Nephrology -obtain home medications which will be reconciled available -check TSH, A1c -obtain a D-dimer level -check for COVID -further orders per hospitalization. Advanced Care Planning Which of the following were discussed: Hospice care: Yes __ No _x_ Therapeutic options: Yes __ No __ Advance directives: Yes __ No __ Other discussions: Pt is full code Discussed with who?: patient (Patient, family or surrogates) Voluntary nature of this service was explained to the patient? Yes _x_ No __ Amount of time spent: 25 minutes JOVANA Schmidt MD, MD Nov 06, 2024 15:56
[2024-11-06 17:13] LABS: THYROID STIMULATING HORMONE 2.7 uIU/mL (0.36-3.74)
[2024-11-06 19:15] LABS: CREATININE 1.1 mg/dL (0.5-1.3); POTASSIUM 4.9 mmol/L (3.5-5.1)
--- NOTE | 2024-11-06 19:29 | CONS ---
[facility] CONSULTATION NOTE Date Patient Seen: Nov 06, 2024 Time of Visit: 19:28 Supervising Physician: Dr. Shukla Reason for Consultation: hyponatremia Primary Care Physician: Outpatient Specialists: Dr. Dewayne Machado, repair clerk Inpatient Consults: BIS, critical care team nephrology PROBLEM LIST: Severe hyponatremia, asymptomatic, POA Dyspnea on exertion, POA Fluid overload, BNP 701, POA Elevated D-dimer,, POA rule out PE Transaminitis, POA Respiratory alkalosis, POA EF 60-65%, per echo on 04/11/2024 Acute kidney injury, GFR 56 Acute or chronic kidney disease, GFR 62-76 in 03/2024 Acute dehydration/ketonuria, POA Anemia History of Atrial fibrillation, currently sinus rhythm Hypertension Hyperlipidemia Obesity, BMI 31.7 History of HEATHER Recent COVID infection treated as outpatient with Paxlovid HPI: Mr. Rosenthal is a 64-year-old male with past medical history of atrial fibrillation, hypertension, hyperlipidemia who presented to the hospital shortness of breath on exertion. The patient was recently diagnosed with COVID by his primary care provider and was placed on Paxlovid. He took the medication for five days. Stated he has been mostly drinking electrolyte rich solution at home. He has not been drinking more than usual. He drinks only when he is thirsty. The patient denied cough, chest pain, abdominal pain, nausea, vomiting, confusion, seizure-like activity, falls, syncopal episode, abdominal pain, diarrhea, fever, or chills. He only takes aspirin every other day for AFib, no anticoagulation. Labs: WBC 10.6, hemoglobin was 13.6, platelet count was 259 K, sodium on presentation was 117, potassium was 4.9, GFR 56, creatinine was 1.4, bicarb was 19, BUN was 24, troponin was negative x1. Chest x-ray was noted to be clear. Initial Na was 117, 2nd 118, 3rd 115. ED provider ordered NS 500 mL. (when I assessed the patient in ED less 75 ml had been infused). Hyperkalemia was treated with Lokelma 5 mg. Patient was assessed by me in room ED 3. Breathing was even, unlabored, in no distress. Patient is oriented x4, no neuro deficits. He denied shortness of breath or chest pain during my evaluation. He reports the shortness of breath is with exacerbation. I informed him of labs, diagnostics, plan of care. He verbalized understanding and is in agreement with the plan. Plan and assessment are listed below. PAST MEDICAL HX: see above PAST SURGICAL HX: Prostate surgery and knee surgery SOCIAL HISTORY: No tobacco, ETOH, or illicit drug use Coded Allergies: propoxyphene (Unverified Allergy, Intermediate, RASH, 11/02/23) REVIEW OF SYSTEMS: 12 point ROS reviewed with patient. Pertinent positives mentioned above. Otherwise negative. PHYSICAL EXAM: GENERAL: Alert, awake oriented x 4 HEENT: EOMI, Sclera non icteric, moist mucosa NECK: Supple, no JVD, trachea midline LUNGS: Clear breath sounds bilaterally. No wheezes HEART: Regular rate and rhythm. Normal S1 and S2, without murmurs ABD: Obese. Abdomen soft, nontender. Bowel sounds present EXT: No clubbing cyanosis or edema NEURO: Alert and oriented X4, follows commands. NIH 0 Vital Signs (last 8hr) Date Time Temp Pulse Resp B/P (MAP) Pulse Ox O2 Delivery O2 Flow Rate FiO2 11/06/24 16:07 98.1 68 20 130/60 98 Room Air* 0 21 11/06/24 15:03 68 20 N/A Room Air 21 11/06/24 14:15 98.1 67 16 127/61 95 Room Air* 0 21 11/06/24 11:53 97.9 66 20 109/68 98 Room Air LABS: Hematology Labs: Test 11/06/24 12:07 Range/Units White Blood Count 10.6 4.8-10.8 K/uL Red Blood Count 3.99 L 4.50-6.20 MIL/uL Hemoglobin 13.6 L 14.0-18.0 g/dL Hematocrit 36.9 L 42-54 % Mean Corpuscular Volume 92.5 79-99 fL Mean Corpuscular Hemoglobin 34.1 H 27.0-33.0 pg Mean Corpuscular Hemoglobin Concent 36.9 H 32.0-36.0 g/dL Red Cell Distribution Width 12.0 11.0-15.5 % Platelet Count 259 130-400 K/uL Mean Platelet Volume 9.4 7.5-10.5 fL Immature Granulocyte % (Auto) 0.7 0-1 % Neutrophils (%) (Auto) 83.1 H 40.0-77.0 % Lymphocytes (%) (Auto) 4.7 L 21.0-51.0 % Monocytes (%) (Auto) 11.0 3.0-13.0 % Eosinophils (%) (Auto) 0.2 0.0-8.0 % Basophils (%) (Auto) 0.3 0.0-5.0 % Neutrophils # (Auto) 8.8 H 1.8-7.7 K/uL Lymphocytes # (Auto) 0.5 L 1.0-4.8 K/uL Monocytes # (Auto) 1.2 H 0.1-1.0 K/uL Eosinophils # (Auto) 0.02 0.00-0.70 K/uL Basophils # (Auto) 0.03 0.00-0.20 K/uL Absolute Immature Granulocyte (auto 0.07 0-1 K/uL Nucleated Red Blood Cells 0.0 0.0-0.19 % White Cell Morphology Comment See comments Red Blood Cell Morphology NORMAL Chemistry Labs: Test 11/06/24 19:00 11/06/24 16:50 11/06/24 12:07 Range/Units Sodium Level 118 L 136-145 mmol/L Potassium Level 4.9 3.5-5.1 mmol/L Chloride Level 85 *L 101-111 mmol/L Carbon Dioxide Level 22 21-32 mmol/L Blood Urea Nitrogen 24 H 7-18 mg/dL Creatinine 1.1 0.5-1.3 mg/dL Glomerular Filtration Rate Calc 75 >90 mL/min Random Glucose 82 70-105 mg/dL Total Calcium 8.2 L 8.5-10.1 mg/dL Uric Acid 7.6 H 2.6-7.2 mg/dL Total Creatine Kinase 232 21-232 U/L Thyroid Stimulating Hormone (TSH) 2.70 # 0.36-3.74 uIU/mL Troponin I High Sensitivity 6 4-75 ng/L Coagulation Labs: Test 11/06/24 12:07 Range/Units D-Dimer Quantitative (PE/DVT) 782 *H 0-500 ng/mL DIAGNOSTICS / RADIOLOGY RESULTS: [ ] PLAN -Continue medical telemetry monitoring. -Start Sodium tabs 1 g P.O. TID. Monitor NA Q6H. -Continue the NS 500 mL ordered by ED. -Correct sodium slowly up to 5-6 mEq a day. -Nephrology consult. -Obtain BNP, monitor for fluid overload. -Obtain echocardiogram. -Obtain CT PE protocol and venous doppler. -Obtain right upper quadrant sonogram to evaluate liver for elevated liver enzymes. -Obtain peak flow in admit/q.a.m. -Monitor respiratory status closely. -Oxygen therapy as needed. Titrate oxygen prn to keep Spo2>/+=92%. -Albuterol inhaler b.i.d. as ordered by Dr. Shukla. -Start patient's Trelegy Ellipta in am. -Patient's home medications were reconciled: Aspirin, Multaq, labetalol, levothyroxine, nifedipine ER, albuterol inhalver, Trelegy Ellipta, montelukast, omeprazole. -RT to provide IS and education on use. -Robitussin DM as needed cough. -p.r.n. medications for: Pain management, fever, nausea, vomiting, consti pation, hypertension. -Glucometer checks AC & HS needed with insulin regular sliding scale coverage as needed. -Blood pressure checks every 4 hours and as needed. -AM labs. -Monitor renal and liver function -Monitor electrolytes and treat accordingly. -GI and DVT prophylaxis: Protonix and -Additional plan and orders per hospitalization course. NEURO: Minimize central acting medications as possible. Maintain fall precautions, adequate lighting during the day PULMONARY: Supplemental 02 as needed. Maintain aspiration precautions at all times CARDIOVASCULAR: Follow hemodynamics. Vital signs per facility protocol GI & NUTRITION: Continue with nutritional support. Continue stool softeners and laxatives as needed. KIDNEYS & ELECTROLYTES: Strict monitoring of intake, output and overall fluid balance. Avoid nephrotoxic medications to the extent possible. Medications to be dosed according to renal function. Monitor electrolytes and replace as needed ENDOCRINE: Maintain blood glucose between 100-180 at all times. Hypoglycemia protocol in place INFECTIOUS DISEASE: Trend temperature, WBC and procalcitonin level Follow cultures, deescalate antibiotics as soon as possible. Panculture if new onset fever ONCOLOGY/HEMATOLOGY/COAGULATION: Monitor for s/s of bleeding Monitor hemoglobin, coagulation studies as needed SKIN: Pressure ulcer prevention per facility protocol Specialty mattress ORTHO/REHAB: Continue PT/OT Prophylaxis: Continue GI and DVT prophylaxis Code Status: Full Resuscitation Disposition: TBD Other: Consulted with Dr. Shukla on this patient. Total patient critical care time exceeds 40 minutes excluding all procedures. ATTESTATION BY PHYSICIAN I reviewed the documentation, medical decision making, and treatment plan as noted by the mid-level provider above. I agree with the findings and plan of care. JIMMIE Zamarripa MD [facility] Nov 06, 2024 19:29
[2024-11-06 20:01] VITALS: PULSE 70; RESP 20; O2SAT 97
[2024-11-06 20:16] LABS: INFLUENZA TYPE A Negative For Type A (NEGATIVE); INFLUENZA TYPE B Negative For Type B (NEGATIVE)
[2024-11-06] MEDS: SODIUM CHLORIDE 1,000 MG TAB PO SCH (20:20)
[2024-11-06] MEDS ORDERED: IOHEXOL-350 75 ML VIAL IV ONE (20:34)
[2024-11-06] MEDS ORDERED: FAMOTIDINE 20MG VIAL IV SCH (21:00)
[2024-11-06 21:19] LABS: CREATININE,URINE RANDOM 206.92 mg/dL (30-135)
[2024-11-06] MEDS: LAbetaLOL HCL 100 MG TABLET PO SCH (21:34)
[2024-11-06] MEDS: nifeDIPine ER 30 MG TAB PO SCH (21:34)
[2024-11-06] MEDS: DRONEDARONE HYDROCHLORIDE 400 MG TABLET PO SCH (21:34)
[2024-11-06] MEDS: monteLUKAST sodIUM 10 MG TAB PO SCH (21:35)
--- NOTE | 2024-11-06 21:36 | HMCIMG ---
CT CHEST PE PROTOCOL WWO CONT HISTORY: Dyspnea COMPARISON: None TECHNIQUE: CT angiography of the chest was performed. The study was performed using angiographic technique with maximum intensity projection reconstruction images. Patient was given 75 cc of Omnipaque through intravenous route. FINDINGS: Pulmonary arteries are poorly opacified limiting evaluation. No CT evidence of filling defect is seen to suggest pulmonary embolus. No CT evidence of aortic dissection is seen. No evidence of parenchymal disease is seen. No CT evidence of pleural effusion or pericardial effusion is seen. The heart is enlarged. Coronary arterial calcifications are seen. No evidence of adrenal mass is seen. Degenerative changes of the spine are noted. IMPRESSION: 1. Pulmonary arteries are poorly opacified limiting evaluation. No gross CT evidence of acute pulmonary embolus is seen. This is a suboptimal study. CT was performed with one or more following dose reduction techniques: automated exposure control, adjustment of the mA and kv according to patient's size, or use of a iterative reconstruction technique.
[2024-11-06 21:44] LABS: BILIRUBIN,DIRECT 0.9 mg/dL (0.0-0.3); BILIRUBIN,TOTAL 1.6 mg/dL (0.2-1.0); MAGNESIUM 2.7 mg/dL (1.80-2.40)
[2024-11-06 21:49] LABS: ALBUMIN 3.5 g/dL (3.5-5.0)
[2024-11-06] MEDS ORDERED: guaiFENesin-DM 200/20MG 10ML PO PRN (22:00)
--- NOTE | 2024-11-06 22:22 | HMCIMG ---
US VENOUS DOPPLER BILATERAL HISTORY: Shortness of breath COMPARISON: None TECHNIQUE: Bilateral lower extremity venous Doppler ultrasound study was performed. FINDINGS: The common femoral, femoral, popliteal, and posterior tibial veins are visualized. Normal flow with augmentation and compressibilities are demonstrated. The greater saphenous veins are also seen and grossly patent. IMPRESSION: 1. No evidence of deep venous thrombosis is seen.
[2024-11-06] MEDS: HEParin 5,000 UNIT VIAL SQ SCH (22:36)
[2024-11-06 23:28] LABS: CREATININE 1.1 mg/dL (0.5-1.3)
[2024-11-06 23:30] VITALS: PULSE 59; RESP 20; O2SAT 95
[2024-11-06] MEDS: IpraTROPium/alBUTERol SULFATE 3 ML SOLUTION IH PRN (23:30)
[2024-11-07] VITALS (14 sets, daily range): BP systolic 102–120; BP diastolic 53–63; PULSE 59–78; RESP 19–22; TEMP 97.9–98.4; O2SAT 92–99
--- NOTE | 2024-11-07 00:46 | NUR ---
ADMISSION NOTE PATIENT TRANSFERRED FROM ER, ABLE TO WALK FROM STRETCHER TO BED. PATIENT ALERT, ORIENTED, ABLE TO MAKE NEEDS KNOWN AT THIS TIME. PATIENT'S SIGNIFICANT OTHER IS AT BEDSIDE AT THIS TIME. PATIENT SHOWN HOW TO USE CALL LIGHT, BROUGHT IN HOME CPAP TO USE. CALL LIGHT IN REACH OF PATIENT. CURRENT DOCUMENTER UPDATED PATIENT ON PLAN OF CARE.
[2024-11-07 02:18] LABS: HEMATOCRIT 33.3 % (42-54); MEAN CORPUSCULAR HEMOGLOBIN 33.2 pg (27.0-33.0); MEAN CORPUSCULAR HGB CONC 35.7 g/dL (32.0-36.0); RED BLOOD CELL COUNT(AUTO) 3.58 MIL/uL (4.50-6.20); WHITE BLOOD COUNT (AUTO) 9.7 K/uL (4.8-10.8)
[2024-11-07 02:32] LABS: INR 1.19 (0.85-1.15); PROTHROMBIN TIME 12.4 SEC (9.6-11.6)
[2024-11-07 02:33] LABS: PARTIAL THROMBOPLASTIN TIME 35.8 SEC (26.3-35.5)
[2024-11-07 02:44] LABS: BILIRUBIN,TOTAL 1.6 mg/dL (0.2-1.0); CREATININE 1.1 mg/dL (0.5-1.3); MAGNESIUM 2.4 mg/dL (1.80-2.40); PHOSPHORUS 3.3 mg/dL (2.5-4.9); POTASSIUM 5.1 mmol/L (3.5-5.1); THYROID STIMULATING HORMONE 3.4 uIU/mL (0.36-3.74); TOTAL PROTEIN, SERUM 7.1 g/dL (6.0-8.3); URIC ACID 6.8 mg/dL (2.6-7.2)
[2024-11-07] MEDS: ALBUTEROL 0.083% 2.5 MG/3 ML INH IH SCH (06:08)
[2024-11-07] MEDS: 0.9%NACL 1000ML 1,000 ML IV ONE (06:30)
[2024-11-07] MEDS: SODIUM CHLORIDE 1,000 MG TAB PO SCH ×2 (06:30→17:49)
[2024-11-07] MEDS: levoTHYROxine 100 MCG TABLET PO SCH (06:30)
[2024-11-07 07:29] LABS: CREATININE 1.1 mg/dL (0.5-1.3); POTASSIUM 4.5 mmol/L (3.5-5.1)
--- NOTE | 2024-11-07 08:44 | PN ---
[facility] PROGRESS NOTE Date of Service: Nov 07, 2024 Time of Service: 08:42 SUBJECTIVE: [ ] A 64-year-old male with past medical history of atrial fibrillation, hypertension, hyperlipidemia presented to the hospital shortness of breath. The patient was recently diagnosed with COVID by his primary care provider and was placed on Paxlovid. He took the medication for five days. Since finishing the course patient states he has been feeling short of breath at rest and with exertion. He denies any chest pain, abdominal pain, nausea vomiting. Denied any confusion, seizure-like activity, falls, syncopal episode. States he has been mostly drinking electrolyte rich solution at home. He has not been drinking more than usual. He drinks only when he is thirsty. Denied any abdominal pain, diarrhea, fever, chills. Denied any cough. He only takes aspirin every other day for AFib. He is not on any anticoagulation. 11/07/24 patient is seen and examined patient is fully awake alert oriented x3. latest [id number] senior painter's was consulted. will follow recommendations REVIEW OF SYSTEMS CONSTITUTIONAL: Denies fevers, chills, or night sweats. No unintentional weight loss reported. NEUROLOGICAL: Denies headache, amaurosis fugax, motor weakness, sensory deficit, vertigo/spinning sensation, gait abnormalities, or tremors. ENT: No hearing loss, otalgia, otorrhea, rhinitis, rhinorrhea, hoarseness, or sore throat. CARDIOVASCULAR: Denies any exertional angina, dyspnea on exertion, orthopnea, paroxysmal nocturnal dyspnea, palpitations, life-threatening arrhythmias, claudication. PULMONARY: Positive for shortness of breaths. Denied any cough, sputum production GASTROINTESTINAL: Denies any type of dysphagia to either liquids or solids. Denies nausea, vomiting, pyrosis, early satiety, abdominal pain, diarrhea, constipation, or changes in stool consistency or caliber. Denies coffee-ground emesis, hematemesis, hematochezia, or melanotic stools. GENITOURINARY: Denies frequency, urgency, nocturia, hematuria or incontinence (Storage/Irritative symptoms.) Low urinary stream, straining to void, urinary intermittency or hesitancy, splitting of the voiding stream, terminal dribbling. ENDOCRINOLOGIC: Denies polyuria, polydipsia, polyphagia or heat/cold intolerances. HEMATOLOGIC: Denies thrombophilia/previous clots, or coagulopathy/bleeding disorders. ONCOLOGIC: Denies personal history of malignancy. DERMATOLOGIC: Denies rashes or pruritus. PSYCHIATRIC: Denies any suicidal or homicidal ideation. Denies hallucinations. PHYSICAL EXAM GENERAL APPEARANCE: The patient is awake, alert, and oriented, in no acute cardiopulmonary distress. NEUROLOGICAL: Cranial nerves II-XII grossly intact. Motor is 5/5 in bilateral upper and lower extremities proximal to distal. No sensory deficits. HEENT: Face is symmetric. Pupils are equal and reactive. Extraocular movements are intact. NECK: Supple. No JVD. No thyromegaly. No submental, submandibular, pre-/p ostauricular, occipital or supraclavicular lymphadenopathy. CHEST: Normal chest expansion. No Telemetry. LUNGS: Absence of any rales, rhonchi or any wheezing. CARDIOVASCULAR: Regular. S1 and S2 normal. No appreciable rubs, murmurs or gallops. ABDOMEN: Soft, nontender, and nondistended. There is no rebound, voluntary guarding, or rigidity. : Deferred. No Guevara. EXTREMITIES: Non-edematous and not cyanotic. No clubbing. Good capillary refill. SKIN: No skin breakdown. Vital Signs (last 8hr) Date Time Temp Pulse Resp B/P (MAP) Pulse Ox O2 Delivery O2 Flow Rate FiO2 11/07/24 08:00 98.1 61 20 102/61 98 Room Air 21 11/07/24 07:20 63 20 11/07/24 07:06 63 20 N/A Room Air 21 11/07/24 04:06 97.9 60 22 107/63 98 CPAP LABS: Laboratory: Test 11/07/24 07:05 11/07/24 02:10 11/06/24 22:51 11/06/24 19:50 Range/Units Sodium Level 117 L 136-145 mmol/L Potassium Level 4.5 3.5-5.1 mmol/L Chloride Level 87 *L 101-111 mmol/L Carbon Dioxide Level 19 L 21-32 mmol/L Blood Urea Nitrogen 22 H 7-18 mg/dL Creatinine 1.1 0.5-1.3 mg/dL Glomerular Filtration Rate Calc 75 >90 mL/min Random Glucose 94 70-105 mg/dL Total Calcium 8.7 8.5-10.1 mg/dL White Blood Count 9.7 4.8-10.8 K/uL Red Blood Count 3.58 L 4.50-6.20 MIL/uL Hemoglobin 11.9 L 14.0-18.0 g/dL Hematocrit 33.3 L 42-54 % Mean Corpuscular Volume 93.0 79-99 fL Mean Corpuscular Hemoglobin 33.2 H 27.0-33.0 pg Mean Corpuscular Hemoglobin Concent 35.7 32.0-36.0 g/dL Red Cell Distribution Width 12.0 11.0-15.5 % Platelet Count 201 130-400 K/uL Mean Platelet Volume 9.0 7.5-10.5 fL Nucleated Red Blood Cells 0.0 0.0-0.19 % Prothrombin Time 12.4 H 9.6-11.6 SEC Prothromb Time International Ratio 1.19 H 0.85-1.15 Activated Partial Thromboplast Time 35.8 H 26.3-35.5 SEC Lactic Acid Level 1.1 0.8-2.5 mmol/L Uric Acid 6.8 2.6-7.2 mg/dL Phosphorus Level 3.3 2.5-4.9 mg/dL Magnesium Level 2.40 1.80-2.40 mg/dL Total Bilirubin 1.6 H 0.2-1.0 mg/dL Aspartate Amino Transf (AST/SGOT) 145 H 10-37 U/L Alanine Aminotransferase (ALT/SGPT) 90 H 12-78 U/L Alkaline Phosphatase 90 50-136 U/L Total Protein 7.1 6.0-8.3 g/dL Albumin 3.0 L 3.5-5.0 g/dL Thyroid Stimulating Hormone (TSH) 3.40 # 0.36-3.74 uIU/mL B-Type Natriuretic Peptide 701 H 0-100 pg/mL Influenza Type A Antigen Negative For Type A NEGATIVE Influenza Type B Antigen Negative For Type B NEGATIVE Test 11/06/24 16:50 11/06/24 15:01 11/06/24 14:45 11/06/24 14:20 Range/Units Direct Bilirubin 0.9 H 0.0-0.3 mg/dL Total Creatine Kinase 232 21-232 U/L Blood Gas Specimen Type Arterial Arterial Blood pH 7.497 H 7.350-7.450 Arterial Blood Partial Pressure CO2 24 L 35-48 mmHg Arterial Blood Partial Pressure O2 94.2 83.0-108.0 mmHg Arterial Blood HCO3 17.8 L 21.0-28.0 mmol/L Arterial Blood Oxygen Saturation 97.5 94.0-98.0 % Arterial Blood Base Excess -3.6 L -2.0-3.0 mmol/L Hemoglobin (Blood Gas) 13.4 L 13.5-17.5 g/dL Sodium (Blood Gas) 118 L 136-145 MMOL/L Bedside Potassium (Blood Gas) 5.0 H 3.4-4.5 MMOL/L Bedside Chloride (Blood Gas) 88 *L 98-107 MMOL/L Bedside Glucose (Blood Gas) 82 65-95 MG/DL Bedside Ionized Calcium (Blood Gas) 1.13 L 1.15-1.33 MMOL/L Bedside Lactic Acid (Blood Gas) 2.40 H 0.36-0.75 MMOL/L Blood Gas Temperature 37.0 35.5-37.0 CELSIUS Blood Gas Vent Mode RA ROOM AIR FiO2 21.0 % Blood Gas Specimen Comment LR,SANDY Urine Color YELLOW YELLOW Urine Appearance CLEAR CLEAR Urine pH 5.5 5.0-8.0 Urine Specific Wilmore 1.022 1.001-1.031 Urine Protein NEGATIVE NEGATIVE mg/dL Urine Glucose (UA) NEGATIVE NEGATIVE mg/dL Urine Ketones 10 H NEGATIVE mg/dL Urine Occult Blood NEGATIVE NEGATIVE Urine Nitrate NEGATIVE NEGATIVE Urine Bilirubin NEGATIVE NEGATIVE mg/dL Urine Urobilinogen 0.2 0.2-1.0 mg/dL Urine Leukocyte Esterase NEGATIVE NEGATIVE Cathy/uL Urine Osmolality 510 50-1200 mOsm/kg Urine Random Creatinine 206.92 H 30-135 mg/dL Urine Random Sodium 16 L 40-220 mmol/l Urine Random Potassium 50 25-125 mmol/L Urine Random Chloride 55 L 110-250 mmol/L SARS-CoV-2, RNA, NAAT NEGATIVE SARS CoV-2 NEGATIVE Test 11/06/24 12:07 Range/Units Immature Granulocyte % (Auto) 0.7 0-1 % Neutrophils (%) (Auto) 83.1 H 40.0-77.0 % Lymphocytes (%) (Auto) 4.7 L 21.0-51.0 % Monocytes (%) (Auto) 11.0 3.0-13.0 % Eosinophils (%) (Auto) 0.2 0.0-8.0 % Basophils (%) (Auto) 0.3 0.0-5.0 % Neutrophils # (Auto) 8.8 H 1.8-7.7 K/uL Lymphocytes # (Auto) 0.5 L 1.0-4.8 K/uL Monocytes # (Auto) 1.2 H 0.1-1.0 K/uL Eosinophils # (Auto) 0.02 0.00-0.70 K/uL Basophils # (Auto) 0.03 0.00-0.20 K/uL Absolute Immature Granulocyte (auto 0.07 0-1 K/uL White Cell Morphology Comment See comments Red Blood Cell Morphology NORMAL D-Dimer Quantitative (PE/DVT) 782 *H 0-500 ng/mL Serum Osmolality 253 L 278-305 mOsm/kg Troponin I High Sensitivity 6 4-75 ng/L Current Medications Medications (Trade) Dose Ordered Sig/Brendon Route PRN Reason Start Time Stop Time Status Last Admin Dose Admin Acetaminophen (TYLenol 500MG TAB) 500 mg Q6H PRN PO MILD PAIN (1-3) 11/06/24 14:00 12/06/24 13:59 Albuterol (DUOneb) 1 UDVIAL Q6H PRN IH SHORTNESS OF BREATH 11/06/24 14:00 12/06/24 13:59 11/07/24 07:13 1 UDVIAL Albuterol Sulfate (Proventil 0.083% 2.5mg/3ml) 90 mg BID IH 11/06/24 21:00 12/06/24 20:59 Aspirin (Aspirin 81mg Ec Tab) 81 mg DAILY PO 11/07/24 09:00 12/07/24 08:59 Dronedarone (Multaq) 400 mg BID PO 11/06/24 21:00 12/06/24 20:59 11/06/24 21:34 400 MG Famotidine (Pepcid 20mg Vial) 20 mg BID IV 11/06/24 21:00 11/06/24 16:52 DC Guaifenesin/ Dextromethorphan (RobiTUSSin DM 200/20MG 10ML) 15 ml Q6H PRN PO COUGH 11/06/24 22:00 12/06/24 21:59 Heparin Sodium (Porcine) (HEParin 5,000 UNIT VIAL) 5,000 unit Q12H SQ 11/06/24 22:00 12/06/24 21:59 11/06/24 22:36 5,000 UNIT Home Med (Home Medication) Fluticasone/ Umeclidin/ Vilan... DAILY IH 11/07/24 09:00 12/07/24 08:59 Labetalol HCl (TRANdate 100 MG TABLET) 100 mg BID PO 11/06/24 21:00 12/06/24 20:59 11/06/24 21:34 100 MG Levothyroxine Sodium (SYNTHroid 100MCG TAB) 100 mcg SYN PO 11/07/24 06:30 12/07/24 06:29 11/07/24 06:30 100 MCG Montelukast Sodium (SinguLAIR) 10 mg HS PO 11/06/24 21:00 12/06/24 20:59 11/06/24 21:35 10 MG Nifedipine (adALAT 30MG) 30 mg HS PO 11/06/24 21:00 12/06/24 20:59 11/06/24 21:34 30 MG Pantoprazole Sodium (PROTonix 40MG TAB) 40 mg DAILY PO 11/07/24 09:00 12/07/24 08:59 Potassium Chloride 100 ml @ 100 mls/hr AD PRN IV POTASSIUM PROTOCOL 11/06/24 14:30 12/06/24 14:29 Potassium Chloride (K-Dur/Klor-Con 20meq) 20 meq AD PRN PO POTASSIUM PROTOCOL 11/06/24 14:30 12/06/24 14:29 Potassium Chloride (KCl 10% Elixir 20meq/15ml) 20 meq AD PRN PO POTASSIUM PROTOCOL 11/06/24 14:30 12/06/24 14:29 Sodium Chloride 500 ml @ 75 mls/hr Q6H40M IV 11/06/24 14:00 11/06/24 17:34 DC 11/06/24 14:48 75 MLS/HR Sodium Chloride (Sodium Chloride) 1,000 mg Q8H PO 11/06/24 20:00 11/07/24 04:50 DC 11/06/24 20:20 1,000 MG Sodium Chloride (Sodium Chloride) 1,000 mg Q8H PO 11/07/24 06:00 12/07/24 05:59 11/07/24 06:30 1,000 MG DIAGNOSTICS / RADIOLOGY: [ ] ASSESSMENT: Severe hyponatremia asymptomatic POA likely in setting of recent HCTZ use hypovolemia, metabolic acidosis POA Shortness of breaths differential secondary to recent COVID versus possible PE Atrial fibrillation no anticoagulation therapy POA Hypertension Hyperlipidemia Obesity BMI 31.7 History of HEATHER Recent COVID infection treated as outpatient with Paxlovid electrolyte derangement: hypomagnesemia elevated LFT elevated BNP POA PLAN: admit: medical surgical floor with Tele acura sales consultant: critical team, Loan Review Analyst IVF: LR at 75 ml/hr restriction free water; Increase sodium by 4-6 mEq in 24 hours. Obtain urine sodium, serum osmolarity. cont with aspirin, Multag and labetalol 100 mg po bid for rate controlled - continue with Heparin 5000 unit sub q 12 hrs. blood pressure: Nifedipine labetalol 100 mg po bid continued with CPAP at bed night and prn replaced electrolytes as needed basis ongoing surviellance: to keep K+ > 4.0 and Mag > 2.0 home medications reviewed no changes all questions answered further orders as per response to tx. ATTESTATION BY PHYSICIAN I have seen and examined the patient. I reviewed the documentation, medical decision making, and treatment plan as noted by the mid-level provider above. I agree with the findings and plan of care. Yoselyn Page MD, ELIZABETH NP Nov 07, 2024 08:44
[2024-11-07] MEDS: ASPIRIN 81 MG EC TAB PO SCH (09:05)
[2024-11-07] MEDS: PANTOPrazole 40 MG TAB DR PO SCH (09:05)
[2024-11-07] MEDS ORDERED: DEXTROSE 5%-LACTATED RINGERS 1,000 ML IV SCH (10:00)
--- NOTE | 2024-11-07 10:04 | CONS ---
REFERRING PHYSICIAN: Dr. Ornelas. REASON FOR CONSULTATION: Renal failure, hyponatremia. HISTORY OF PRESENT ILLNESS: A 64-year-old male with a history of coronary artery disease. He has a history of atrial fibrillation and hypertension. The patient was recently diagnosed with COVID as an outpatient. The patient presented to the hospital with complaints of failure to thrive. The patient has been having poor oral intake and generalized fatigue. The patient was also noted to have shortness of breath. In the emergency room, the patient was found to have significant hyponatremia, initial serum sodium of 118 mmol/L and the patient is being seen in consultation for all of the above. PAST MEDICAL HISTORY: Coronary artery disease, atrial fibrillation, hypertension. PAST SURGICAL HISTORY: Knee surgery. SOCIAL HISTORY: No active tobacco use. FAMILY HISTORY: There is no renal disease in the family. MEDICATIONS: Are all noted. REVIEW OF SYSTEMS: GENERAL: He is feeling somewhat improved. HEENT: No change in vision. No change in hearing. CARDIOVASCULAR: There is no current chest pain or palpitations. PULMONARY: As described above. GASTROINTESTINAL: The patient is tolerating a diet. MUSCULOSKELETAL: Complains of weakness. NEUROLOGIC: No seizures or focal deficits. PSYCHIATRIC: No history of hallucinations or psychosis. ENDOCRINE: He denies any diabetes mellitus or thyroid disease. HEME: No history of anemia or malignancy. PHYSICAL EXAMINATION: VITAL SIGNS: Blood pressure 103/61, pulse 60s, he is afebrile. GENERAL: He is a chronically ill male, lying in bed on the medical floor. HEENT: Head is atraumatic. Pupils are equal, roving to light. Oropharynx is without exudate. Nares are clear. NECK: There is no JVP. There is no thyromegaly. No masses. CARDIOVASCULAR: Regular. There is no S3 or S4 gallop. LUNGS: Clear with equal thoracic movement. ABDOMEN: Soft, nondistended, nontender. EXTREMITIES: Reveal no clubbing, no cyanosis. NEUROLOGICAL: He is awake. He is alert. He is oriented. SKIN: Reveals no rashes or nodules. BACK: There is no CVA tenderness. There are no back deformities. LABORATORY DATA: Sodium 117, chloride 87, BUN 22 with a creatinine of 1. Hemoglobin 11, hematocrit 33, urine sodium is 16. IMPRESSION: * Renal dysfunction. * Hyponatremia. * Coronary artery disease. * Recent history of COVID. * Metabolic acidosis. PLAN: The patient with significant hyponatremia. The patient's urine sodium of less than 16 consistent with hypovolemia, hyponatremia. The patient has had worsening acidosis while in the hospital. IV fluids will be changed to lactated Ringer at 75 mL per hour. The patient is encouraged with his oral intake. The patient's blood pressure is under adequate control. Electrolytes have all been aggressively repleted. We will continue to follow closely. All labs can be repeated in the a.m. The patient with multiple questions, all of which were answered. TID: [id number] RECEIPT: [id number]
--- NOTE | 2024-11-07 10:26 | HMCIMG ---
Exam Type: US ABD LIMITED/ABD WALL Clinical Information: Transaminitis Comparison: None Findings: The liver shows fatty infiltration and is enlarged, measuring 19.6 cm cm and is otherwise unremarkable. Doppler evaluation shows patent portal and hepatic veins. The gallbladder shows no significant abnormalities. Specifically, no calculi are seen. No bile duct dilatation is noted. The gallbladder wall measures 2 mm. The common bile duct measures 4 mm. The right kidney measures 11.9 x 5.8 cm- it shows no hydronephrosis or calculi, masses or other abnormalities. Simple cyst right kidney midpole 2.4 cm. The pancreas is suboptimally visualized. The aorta and inferior vena cava show no significant abnormalities. IMPRESSION: FATTY LIVER INFILTRATION AND HEPATOMEGALY. OTHERWISE NORMAL RIGHT UPPER QUADRANT ABDOMINAL ULTRASOUND.
[2024-11-07] MEDS ORDERED: MAGNESIUM 2GM PREMIX 50ML 50 ML IV SCH (10:30)
--- NOTE | 2024-11-07 10:32 | CONS ---
NEPHROLOGY CONSULTATION REASON FOR CONSULTATION: The patient is brought to the emergency room with severe hyponatremia. The patient has multiple medical problems. HISTORY OF PRESENT ILLNESS: This patient is a 64-year-old who is a jail resident apparently. The patient has hypertension and hyperlipidemia, previous COVID infection, has taken Paxlovid. The patient has multiple other comorbidities. Found to have very low sodium. No other associated findings. No other aggravating or relieving factors. PAST MEDICAL HISTORY: Significant for atrial fibrillation, hypertension, hyperlipidemia. PAST SURGICAL HISTORY: Prostate surgery, left knee surgery. SOCIAL HISTORY: No smoking, alcohol or drug abuse reported. FAMILY HISTORY: Not pertinent. ALLERGIES: REPORTED TO PROPOXYPHENE. REVIEW OF SYSTEMS: CONSTITUTIONAL: No fever, chills or rigors. HEENT: With no headache, oral ulcer, sore throat, or difficulty swallowing. RESPIRATORY: With no cough, expectoration or hemoptysis. CARDIOVASCULAR: Has shortness of breath, orthopnea, PND. GASTROINTESTINAL: Negative for nausea, vomiting, and diarrhea. GENITOURINARY: Negative for dysuria and hematuria. DERMATOLOGIC: No new rashes, pruritus or skin lesion. ENDOCRINE: No polyuria, polydipsia or polyphagia. PSYCHIATRIC: Review is negative for anxiety, depression and hallucinations. All the other systems are unchanged. PHYSICAL EXAMINATION: GENERAL: Pale, in no other distress. VITAL SIGNS: Blood pressure is 109/68, pulse is 68, respiratory rate 20. HEENT: Head is atraumatic and normocephalic. Pupils are round and reactive. Sclerae anicteric. Conjunctivae not pale. Oral mucosa is not dry. NECK: Supple. No masses or bruits. Thyroid is palpable. Neck has no bruits. CHEST: Shows equal thoracic repercussion note being resonant in all areas. CARDIAC: Regular rhythm. No rubs. No S3, S4. No parasternal heave. Apical beat is not localized. ABDOMEN: With no guarding or tenderness. Bowel sounds present. No free fluid. EXTREMITIES: No edema. No cyanosis or clubbing. BACK: No tenderness or back deformities. LYMPHATIC: With no lymph node swelling in neck or axillary area. NEUROLOGIC: Unchanged, nonfocal. No cranial palsies. SKIN: No other petechial rashes noted on inspection or palpation. No lymph node swelling in the neck or axillary area. LABORATORY DATA: We have reviewed available labs in detail. Sodium level is as low as 117. We have reviewed the urinalysis. Urine electrolytes ordered. The patient has hemoglobin of 13, white cell count slightly elevated. Blood gas is ordered and reviewed, pH is 7.497. Chemistry is reviewed with the sodium as low as 117, BUN of 24, creatinine is 1.2. TSH was normal and uric acid is slightly high. Total calcium 6.2. Old records have been reviewed. IMAGING STUDIES: Personally reviewed. The patient's chest x-ray has shown increased markings, but no clear evidence of any fluid in it. Old records have been reviewed in detail. Potassium was slightly high before up to 5.3. Old records have been reviewed. PROBLEMS: Include: * The patient has severe hyponatremia. * Hyperkalemia on admission. * Underlying atrial fibrillation. * Underlying hypertension. * Hyperlipidemia. * The patient has recent COVID-19 infection. * Some shortness of breath. * Obesity. * History of sleep apnea and multiple other. PLAN: * The patient is planned to be admitted to ICU. * For the time being, there may not be need for any hypertonic saline unless there are worsening neurological symptoms. * Free water restriction should be done. * Uric acid. * Serum osmolality. * Urine osmolality. * Urine electrolyte. * TSH. * Cortisol level. * COVID test again. * Very frequent monitoring sodium every few hours. * Rapid correction may not be needed. * IV Dilaudid 0.5 mg q. 6 hours can be used for pain. * We will be following up on all these issues. I have discussed with other team physician. We will continue close monitoring. Intake, output and weight will be monitored. Nonsteroidal drugs will be avoided. Doses of medicine will be adjusted and will be following up closely. We have reviewed the external records, previous records, old records in detail and followup labs have been ordered. Condition is critical, guarded. Thank you for this patient. Overall status is critical. TID: [id number] RECEIPT: [id number] [facility]
[2024-11-07 11:25] LABS: CREATININE 0.9 mg/dL (0.5-1.3); POTASSIUM 4.4 mmol/L (3.5-5.1)
--- NOTE | 2024-11-07 14:23 | HMCSR ---
APPROVED REPORT EXAM: Two-dimensional and M-mode echocardiogram with Doppler and color Doppler. INDICATION ICD: Elevated BNP, shortness of breath on exertion 2D Dimensions RVDd3.9 cmLVEF(%)54.1 (>50%)LVED Vol(simp.)117.0 mL IVSd0.8 (0.7-1.1cm)FS(%)28 %LVES Vol(simp.)31.0 mL LVDd5.5 (3.8-5.6cm)LA (2D)4.6 (1.6-4.0cm)LVEF(%, simp.)73 % PWd0.8 (0.7-1.1cm)Ao Root(2D)3.4 (2.0-3.7cm)LA ESV INDEX (BP)39.22 mL/m2 IVSs1.1 cmLVOT diam2.3 (1.8-2.4cm) LVDs3.9 (2.5-4.0cm)IVC diam1.8 cm PWs1.2 cm Deformation Strain Apical 4-21.3 % Apical 2-22.3 % Apical 3-22.5 % Global Strain-22.0 % M-Mode Dimensions EPSS0.8 cm LA (MM)4.8 (1.6-4.0cm) Ao Root(MM)3.7 (2.0-3.7cm) Aortic Valve AoV Vmax1.7 m/Ismael Peak GR11.2 mmHgLVOT Vmax1.5 m/s AoV VTI0.3 mAo Mean GR6.3 mmHgLVOT VTI0.31 m PEDRO (VMAX)3.70 cm2AVA (VTI) 4.2 cm2 Mitral Valve MV E Vmax75.8 cm/sDECEL [id number] ms MV A Vmax68.7 cm/sP 1/2 T35 ms E/A ratio1.1MVA (PHT)6.3 cm2 TDI E/E' Medial9.0E/E' Lateral8.3 Medial E' Peak V8.40 cm/sLateral E' Peak V9.15 cm/s Pulmonary Valve PV Vmax1.3 m/sPV VTI0.30 mPV Mean GR4.4 mmHg PV Peak GR7.2 mmHg Tricuspid Valve RAP (EST) 3 mmHgRVSP3.0 mmHg Left Ventricle The left ventricle is normal size. GLS -22.0%. There is normal left ventricular wall thickness. LVEF is >70%. 3D volume EF 72%. The left ventricular diastolic function is normal. Right Ventricle The right ventricle is normal size. The right ventricular systolic function is normal. RV FAC 41%. Atria The left atrium is mildly dilated. The right atrium is mildly dilated. Aortic Valve The aortic valve is normal in structure. No aortic regurgitation is present. There is no aortic valvu lar stenosis. Mitral Valve The mitral valve is normal in structure. There is mild mitral valve regurgitation noted. There is no mitral valve stenosis. Tricuspid Valve The tricuspid valve is normal in structure. There is trace of tricuspid valve regurgitation noted. Pulmonic Valve The pulmonary valve is normal in structure. There is no pulmonic valvular regurgitation. Great Vessels The aortic root is normal in size. The IVC is normal in size and collapses >50% with inspiration. Pericardium There is no pericardial effusion. Other Information Quality : AdequateRhythm : NSR Conclusion LVEF is >70%. 3D volume EF 72%. The left ventricular diastolic function is normal. The left atrium is mildly dilated. Mild mitral valve regurgitation noted.
--- NOTE | 2024-11-07 17:49 | NUR ---
Discharge Planning: Pt. states he lives with his girlfriend Tita Barbour. PCP is Dr. Jaguar Machado, and preferred pharmacy is [facility] in [place]. Pt. is employed and independent with all ADL's. No home health, provider services, or DME. DCP is for home. No d/c needs at this time. Addendum: 11/07/24 at 1801 by KUNAL MCCRAY RN CM Amended: Links added.
--- NOTE | 2024-11-07 23:10 | PN ---
[facility] PROGRESS NOTE Date Patient Seen: Nov 07, 2024 Time of Visit: 23:10 Supervising Physician: Dr. Jameel Begum Primary Care Physician: Outpatient Specialists: Dr. Dewayne Machado, supervisor [employer] Inpatient Consults: BIS, critical care team nephrology PROBLEM LIST: Severe hyponatremia, asymptomatic, POA SIDH Dyspnea on exertion, POA Fluid overload, BNP 701, POA Elevated D-dimer,, POA ruled out PE Transaminitis, POA Respiratory alkalosis, POA Acute kidney injury, GFR 56 Acute or chronic kidney disease, GFR 62-76 in 03/2024 Acute dehydration/ketonuria, POA Anemia History of Atrial fibrillation, currently sinus rhythm Hypertension Hyperlipidemia Obesity, BMI 31.7 History of HEATHER Recent COVID infection treated as outpatient with Paxlovid INTERVAL HISTORY: Mr. Rosenthal is a 64-year-old male with past medical history of atrial fibrillation, hypertension, hyperlipidemia who presented to the hospital shortness of breath o n exertion. The patient was recently diagnosed with COVID by his primary care provider and was placed on Paxlovid. He took the medication for five days. Stated he has been mostly drinking electrolyte rich solution at home. He has not been drinking more than usual. He drinks only when he is thirsty. The patient denied cough, chest pain, abdominal pain, nausea, vomiting, confusion, seizure-like activity, falls, syncopal episode, abdominal pain, diarrhea, fever, or chills. He only takes aspirin every other day for AFib, no anticoagulation. Labs: WBC 10.6, hemoglobin was 13.6, platelet count was 259 K, sodium on presentation was 117, potassium was 4.9, GFR 56, creatinine was 1.4, bicarb was 19, BUN was 24, troponin was negative x1. Chest x-ray was noted to be clear. Initial Na was 117, 2nd 118, 3rd 115. ED provider ordered NS 500 mL. (when I assessed the patient in ED less 75 ml had been infused). Hyperkalemia was treated with Lokelma 5 mg. 11/07-patient is resting in bed lying in a high Baldwin's position watching television during the time of my assessment. Reviewed with the diagnostic laboratory studies for the day and laboratory studies vital signs. IV fluid has been discontinued. Patient has been discontinued on the the dextrose LR IV fluid, fluid restriction, sodium tablets 2 g q.6 hours with serial sodiums to be checked q.6 hours. The goal is to gently raise the patient's sodium level with the focus on the laboratory studies and patient's presentation. Patient is hemodynamically stable at this time. Echocardiogram was ordered completed and resulted EF between 65-70%. A.m. laboratory studies have been ordered for tomorrow REVIEW OF SYSTEMS: 12 point ROS reviewed with patient. Pertinent positives mentioned above. Otherwise negative. PHYSICAL EXAM: GENERAL: Alert, awake oriented x 4 HEENT: EOMI, Sclera non icteric, moist mucosa NECK: Supple, no JVD, trachea midline LUNGS: Clear breath sounds bilaterally. No wheezes HEART: Regular rate and rhythm. Normal S1 and S2, without murmurs ABD: Obese. Abdomen soft, nontender. Bowel sounds present EXT: No clubbing cyanosis or edema NEURO: Alert and oriented X4, follows commands. NIH 0 Vital Signs (last 8hr) Date Time Temp Pulse Resp B/P (MAP) Pulse Ox O2 Delivery O2 Flow Rate FiO2 11/07/24 19:53 98.1 69 20 110/59 99 Room Air 11/07/24 19:11 72 20 N/A Room Air 21 11/07/24 16:00 98.2 68 20 110/63 93 Room Air 21 LABS: Hematology Labs: Test 11/07/24 02:10 11/06/24 12:07 Range/Units White Blood Count 9.7 4.8-10.8 K/uL Red Blood Count 3.58 L 4.50-6.20 MIL/uL Hemoglobin 11.9 L 14.0-18.0 g/dL Hematocrit 33.3 L 42-54 % Mean Corpuscular Volume 93.0 79-99 fL Mean Corpuscular Hemoglobin 33.2 H 27.0-33.0 pg Mean Corpuscular Hemoglobin Concent 35.7 32.0-36.0 g/dL Red Cell Distribution Width 12.0 11.0-15.5 % Platelet Count 201 130-400 K/uL Mean Platelet Volume 9.0 7.5-10.5 fL Nucleated Red Blood Cells 0.0 0.0-0.19 % Immature Granulocyte % (Auto) 0.7 0-1 % Neutrophils (%) (Auto) 83.1 H 40.0-77.0 % Lymphocytes (%) (Auto) 4.7 L 21.0-51.0 % Monocytes (%) (Auto) 11.0 3.0-13.0 % Eosinophils (%) (Auto) 0.2 0.0-8.0 % Basophils (%) (Auto) 0.3 0.0-5.0 % Neutrophils # (Auto) 8.8 H 1.8-7.7 K/uL Lymphocytes # (Auto) 0.5 L 1.0-4.8 K/uL Monocytes # (Auto) 1.2 H 0.1-1.0 K/uL Eosinophils # (Auto) 0.02 0.00-0.70 K/uL Basophils # (Auto) 0.03 0.00-0.20 K/uL Absolute Immature Granulocyte (auto 0.07 0-1 K/uL White Cell Morphology Comment See comments Red Blood Cell Morphology NORMAL Chemistry Labs: Test 11/07/24 16:22 11/07/24 11:12 11/07/24 02:10 11/06/24 22:51 Range/Units Sodium Level 119 L 136-145 mmol/L Potassium Level 4.4 3.5-5.1 mmol/L Chloride Level 88 *L 101-111 mmol/L Carbon Dioxide Level 20 L 21-32 mmol/L Blood Urea Nitrogen 20 H 7-18 mg/dL Creatinine 0.9 0.5-1.3 mg/dL Glomerular Filtration Rate Calc 96 >90 mL/min Random Glucose 104 70-105 mg/dL Total Calcium 8.3 L 8.5-10.1 mg/dL Lactic Acid Level 1.1 0.8-2.5 mmol/L Uric Acid 6.8 2.6-7.2 mg/dL Phosphorus Level 3.3 2.5-4.9 mg/dL Magnesium Level 2.40 1.80-2.40 mg/dL Total Bilirubin 1.6 H 0.2-1.0 mg/dL Aspartate Amino Transf (AST/SGOT) 145 H 10-37 U/L Alanine Aminotransferase (ALT/SGPT) 90 H 12-78 U/L Alkaline Phosphatase 90 50-136 U/L Total Protein 7.1 6.0-8.3 g/dL Albumin 3.0 L 3.5-5.0 g/dL Thyroid Stimulating Hormone (TSH) 3.40 # 0.36-3.74 uIU/mL B-Type Natriuretic Peptide 701 H 0-100 pg/mL Test 11/06/24 16:50 11/06/24 12:07 Range/Units Direct Bilirubin 0.9 H 0.0-0.3 mg/dL Total Creatine Kinase 232 21-232 U/L Serum Osmolality 253 L 278-305 mOsm/kg Troponin I High Sensitivity 6 4-75 ng/L Coagulation Labs: Test 11/07/24 02:10 11/06/24 12:07 Range/Units Prothrombin Time 12.4 H 9.6-11.6 SEC Prothromb Time International Ratio 1.19 H 0.85-1.15 Activated Partial Thromboplast Time 35.8 H 26.3-35.5 SEC D-Dimer Quantitative (PE/DVT) 782 *H 0-500 ng/mL DIAGNOSTICS / RADIOLOGY RESULTS: Echocardiogram results: LVEF is >70%. 3D volume EF 72%. The left ventricular diastolic function is normal. The left atrium is mildly dilated. Mild mitral valve regurgitation noted. PLAN -Continue medical telemetry monitoring. -start patient on 2 g sodium Q six -discontinue IV fluid, fluid restriction -serial sodiums q.6 hours. -Correct sodium slowly up to 5-6 mEq a day. -Nephrology consult. -Obtain BNP, monitor for fluid overload. -Echocardiogram results: LVEF is >70%. 3D volume EF 72%. The left ventricular diastolic function is normal. The left atrium is mildly dilated. Mild mitral valve regurgitation noted. Ultrasound right upper quadrant abdomen impression: FATTY LIVER INFILTRATION AND HEPATOMEGALY. OTHERWISE NORMAL RIGHT UPPER QUADRANT ABDOMINAL ULTRASOUND. -Obtain peak flow in admit/q.a.m. -Monitor respiratory status closely. -Oxygen therapy as needed. Titrate oxygen prn to keep Spo2>/+=92%. -Start patient's Trelegy Ellipta in am. -Patient's home medications were reconciled: Aspirin, Multaq, labetalol, levothyroxine, nifedipine ER, albuterol inhalver, Trelegy Ellipta, montelukast, omeprazole. -RT to provide IS and education on use. -Robitussin DM as needed cough. -p.r.n. medications for: Pain management, fever, nausea, vomiting, constipation, hypertension. -Glucometer checks AC & HS needed with insulin regular sliding scale coverage as needed. -Blood pressure checks every 4 hours and as needed. -AM labs. -Monitor renal and liver function -Monitor electrolytes and treat accordingly. -GI and DVT prophylaxis: Protonix and -Additional plan and orders per hospitalization course. NEURO: Minimize central acting medications as possible. Maintain fall precautions, adequate lighting during the day PULMONARY: Supplemental 02 as needed. Maintain aspiration precautions at all times CARDIOVASCULAR: Follow hemodynamics. Vital signs per facility protocol GI & NUTRITION: Continue with nutritional support. Continue stool softeners and laxatives as needed. KIDNEYS & ELECTROLYTES: Strict monitoring of intake, output and overall fluid balance. Avoid nephrotoxic medications to the extent possible. Medications to be dosed according to renal function. Monitor electrolytes and replace as needed ENDOCRINE: Maintain blood glucose between 100-180 at all times. Hypoglycemia protocol in place INFECTIOUS DISEASE: Trend temperature, WBC and procalcitonin level Follow cultures, deescalate antibiotics as soon as possible. Panculture if new onset fever ONCOLOGY/HEMATOLOGY/COAGULATION: Monitor for s/s of bleeding Monitor hemoglobin, coagulation studies as needed SKIN: Pressure ulcer prevention per facility protocol Specialty mattress ORTHO/REHAB: Continue PT/OT Prophylaxis: Continue GI and DVT prophylaxis Code Status: Full Resuscitation Disposition: TBD Other: Consulted with Dr. Shukla on this patient. Total patient critical care time exceeds 40 minutes excluding all procedures. IVELISSE BOX NP Nov 07, 2024 23:10
[2024-11-08] VITALS (9 sets, daily range): BP systolic 103–113; BP diastolic 61–66; PULSE 66–78; RESP 17–20; TEMP 97.5–98.3; O2SAT 94–97
--- NOTE | 2024-11-08 01:41 | PN ---
NEPHROLOGY NOTE SUBJECTIVE: This patient has multiple problems including severe hyponatremia in a patient who has underlying ____ coronary artery disease, recent COVID. The patient has multiple other comorbidities. The patient has underlying hyperkalemia admission, atrial fibrillation, hypertension, hyperlipidemia, shortness of breath, obesity, and sleep apnea. The patient remains with low sodium. No fevers, chills, or rigors. No cough, spectrum, hemoptysis. Mild anemia is present. No other associated findings. No other aggravating or relieving factors. The patient remains generally weak. The patient does have a history of previous acidosis and obesity. REVIEW OF SYSTEMS: CONSTITUTIONAL: No fevers, chills, or rigors. HEENT: No headache, no ulceration, sore throat or difficulty swallowing. RESPIRATORY: With no cough, expectoration, hemoptysis or pleuritic pain. CARDIOVASCULAR: No orthopnea, PND. GASTROINTESTINAL: Negative nausea, vomiting, or diarrhea. GENITOURINARY: Negative for dysuria and hematuria. DERMATOLOGICAL: No rashes or pruritus. NEUROLOGICAL: No seizures or syncope. ENDOCRINE: No polyuria, polydipsia, or polyphagia. PHYSICAL EXAMINATION: GENERAL: Pale, no other distress. VITAL SIGNS: Blood pressure is 102/69, pulse 61, respiratory rate is 20. Afebrile. HEENT: Head is atraumatic, normocephalic. Pupils are round and reactive. Sclerae are anicteric. Conjunctivae not pale. Oral mucosa is not dry. NECK: Supple. No masses or bruits. Thyroid is palpable. Neck has no bruits. CHEST: Shows equal thoracic percussion, note being resonant in all areas. CARDIAC: Regular rhythm. No rub. No S3, S4. No parasternal heave. Apical beat is not localized. ABDOMEN: No guarding, tenderness. Bowel sounds are present. No free fluid. EXTREMITIES: No edema. No cyanosis. No clubbing. NEUROLOGIC: Unchanged. Nonfocal. No cranial nerve palsies. LABORATORY DATA: Hemoglobin is 11.9. Sodium has been low to 120. The patient has a BUN of 20, creatinine 0.9, low chloride. The patient does have a TSH normal. Uric acid has been 6.8. Serum osmolality was done and it was low at ____. Urine osmolarity has been done with urine osmolarity being 510. Urinalysis has been done. IMAGING STUDIES: Personally reviewed. The patient had abdominal ultrasound done with fatty liver. Old records have been reviewed. Echocardiogram has been done, which was reviewed personally with ejection fraction more than 70%. PROBLEMS: * The patient has severe hyponatremia. * Has underlying atrial fibrillation. * The patient has underlying slightly low blood pressure for hypothyroidism, adequately replaced. * The patient has underlying deported COPD. * Underlying hypertension, all relatively low blood pressure. * Multiple other comorbidities. PLAN AND RECOMMENDATIONS: * Serum osmolality done, low. * Urine osmolality is high 510. * The patient has benefit from free water restriction. * I will suggest to have close followup on weight, electrolytes and function. * Frequent monitoring of sodium should be done. * The patient is likely to have no chronic hyponatremia and no need to rapidly correct. Slow correction between maximum up to 6 mEq a day can be done. We will continue monitoring. For now, may not be needing any hypertonic saline. Intake, output, weight will be monitored. Nonsteroidal drugs will be avoided. Dose of medicine will be adjusted. Continued followup on all these issues. TSH was normal. Cortisol level should be done if not done. We will be following up closely. Overall condition remains guarded. Intake, output, weight will be monitored. Nonsteroidal drugs will be avoided. We have ordered cortisol level and it is pending. Total time spent was more than 45 minutes. TID: [id number] RECEIPT: [id number]
--- NOTE | 2024-11-08 03:45 | NUR ---
PATIENT REFUSED 4 AM VITALS PER [facility] PCT.
[2024-11-08 05:29] LABS: BASOPHILS # (AUTO) 0.01 K/uL (0.00-0.20); BASOPHILS % (AUTO) 0.1 % (0.0-5.0); EOSINOPHILS # (AUTO) 0.01 K/uL (0.00-0.70); EOSINOPHILS % (AUTO) 0.1 % (0.0-8.0); HEMATOCRIT 35.1 % (42-54); IMMATURE GRANULOCYTE ABSOLUTE 0.09 K/uL (0-1); LYMPHOCYTES # (AUTO) 0.3 K/uL (1.0-4.8); LYMPHOCYTES % (AUTO) 3.4 % (21.0-51.0); MEAN CORPUSCULAR HEMOGLOBIN 33.7 pg (27.0-33.0); MEAN CORPUSCULAR HGB CONC 35.9 g/dL (32.0-36.0); MEAN CORPUSCULAR VOLUME 93.9 fL (79-99); MONOCYTES % (AUTO) 10.3 % (3.0-13.0); NEUTROPHILS # (AUTO) 7.8 K/uL (1.8-7.7); NEUTROPHILS % (AUTO) 85.1 % (40.0-77.0); PLATELET COUNT (AUTO) 210 K/uL (130-400); RED BLOOD CELL COUNT(AUTO) 3.74 MIL/uL (4.50-6.20); RED CELL DISTRIBUTION WIDTH 12.1 % (11.0-15.5); WHITE BLOOD COUNT (AUTO) 9.2 K/uL (4.8-10.8)
[2024-11-08 06:05] LABS: ALBUMIN 2.8 g/dL (3.5-5.0); BILIRUBIN,DIRECT 0.8 mg/dL (0.0-0.3); BILIRUBIN,TOTAL 1.3 mg/dL (0.2-1.0); CREATININE 0.9 mg/dL (0.5-1.3); MAGNESIUM 2.4 mg/dL (1.80-2.40); POTASSIUM 4.4 mmol/L (3.5-5.1); TOTAL PROTEIN, SERUM 7.1 g/dL (6.0-8.3)
--- NOTE | 2024-11-08 10:55 | PN ---
[facility] PROGRESS NOTE Date of Service: Nov 08, 2024 Time of Service: 10:51 SUBJECTIVE: [ ] A 64-year-old male with past medical history of atrial fibrillation, hypertension, hyperlipidemia presented to the hospital shortness of breath. The patient was recently diagnosed with COVID by his primary care provider and was placed on Paxlovid. He took the medication for five days. Since finishing the course patient states he has been feeling short of breath at rest and with exertion. He denies any chest pain, abdominal pain, nausea vomiting. Denied any confusion, seizure-like activity, falls, syncopal episode. States he has been mostly drinking electrolyte rich solution at home. He has not been drinking more than usual. He drinks only when he is thirsty. Denied any abdominal pain, diarrhea, fever, chills. Denied any cough. He only takes aspirin every other day for AFib. He is not on any anticoagulation. 11/07/24 patient is seen and examined patient is fully awake alert oriented x3. latest [id number] snowmaker's was consulted. will follow recommendations 11/08/24 earlier patient is fully awake alert oriented x3. Denied chest pain, headaches palpitations. Patient was started on sodium tablets per snowmaker's latest sodium 122. REVIEW OF SYSTEMS CONSTITUTIONAL: Denies fevers, chills, or night sweats. No unintentional weight loss reported. NEUROLOGICAL: Denies headache, amaurosis fugax, motor weakness, sensory deficit, vertigo/spinning sensation, gait abnormalities, or tremors. ENT: No hearing loss, otalgia, otorrhea, rhinitis, rhinorrhea, hoarseness, or sore throat. CARDIOVASCULAR: Denies any exertional angina, dyspnea on exertion, orthopnea, paroxysmal nocturnal dyspnea, palpitations, life-threatening arrhythmias, claudication. PULMONARY: Positive for shortness of breaths. Denied any cough, sputum production GASTROINTESTINAL: Denies any type of dysphagia to either liquids or solids. Denies nausea, vomiting, pyrosis, early satiety, abdominal pain, diarrhea, constipation, or changes in stool consistency or caliber. Denies coffee-ground emesis, hematemesis, hematochezia, or melanotic stools. GENITOURINARY: Denies frequency, urgency, nocturia, hematuria or incontinence (Storage/Irritative symptoms.) Low urinary stream, straining to void, urinary intermittency or hesitancy, splitting of the voiding stream, terminal dribbling. ENDOCRINOLOGIC: Denies polyuria, polydipsia, polyphagia or heat/cold intolerances. HEMATOLOGIC: Denies thrombophilia/previous clots, or coagulopathy/bleeding disorders. ONCOLOGIC: Denies personal history of malignancy. DERMATOLOGIC: Denies rashes or pruritus. PSYCHIATRIC: Denies any suicidal or homicidal ideation. Denies hallucinations. PHYSICAL EXAM GENERAL APPEARANCE: The patient is awake, alert, and oriented, in no acute cardiopulmonary distress. NEUROLOGICAL: Cranial nerves II-XII grossly intact. Motor is 5/5 in bilateral upper and lower extremities proximal to distal. No sensory deficits. HEENT: Face is symmetric. Pupils are equal and reactive. Extraocular movements are intact. NECK: Supple. No JVD. No thyromegaly. No submental, submandibular, pre- /postauricular, occipital or supraclavicular lymphadenopathy. CHEST: Normal chest expansion. No Telemetry. LUNGS: Absence of any rales, rhonchi or any wheezing. CARDIOVASCULAR: Regular. S1 and S2 normal. No appreciable rubs, murmurs or gallops. ABDOMEN: Soft, nontender, and nondistended. There is no rebound, voluntary guarding, or rigidity. : Deferred. No Guevara. EXTREMITIES: Non-edematous and not cyanotic. No clubbing. Good capillary refill. SKIN: No skin breakdown. Vital Signs (last 8hr) Date Time Temp Pulse Resp B/P (MAP) Pulse Ox O2 Delivery O2 Flow Rate FiO2 11/08/24 08:22 97.9 78 18 109/62 95 11/08/24 07:28 78 20 N/A Room Air 21 11/08/24 04:25 97.5 72 20 103/65 100 CPAP 11/08/24 03:30 20 LABS: Laboratory: Test 11/08/24 05:05 11/07/24 02:10 11/06/24 22:51 11/06/24 19:50 Range/Units White Blood Count 9.2 4.8-10.8 K/uL Red Blood Count 3.74 L 4.50-6.20 MIL/uL Hemoglobin 12.6 L 14.0-18.0 g/dL Hematocrit 35.1 L 42-54 % Mean Corpuscular Volume 93.9 79-99 fL Mean Corpuscular Hemoglobin 33.7 H 27.0-33.0 pg Mean Corpuscular Hemoglobin Concent 35.9 32.0-36.0 g/dL Red Cell Distribution Width 12.1 11.0-15.5 % Platelet Count 210 130-400 K/uL Mean Platelet Volume 9.3 7.5-10.5 fL Immature Granulocyte % (Auto) 1.0 0-1 % Neutrophils (%) (Auto) 85.1 H 40.0-77.0 % Lymphocytes (%) (Auto) 3.4 L 21.0-51.0 % Monocytes (%) (Auto) 10.3 3.0-13.0 % Eosinophils (%) (Auto) 0.1 0.0-8.0 % Basophils (%) (Auto) 0.1 0.0-5.0 % Neutrophils # (Auto) 7.8 H 1.8-7.7 K/uL Lymphocytes # (Auto) 0.3 L 1.0-4.8 K/uL Monocytes # (Auto) 1.0 0.1-1.0 K/uL Eosinophils # (Auto) 0.01 0.00-0.70 K/uL Basophils # (Auto) 0.01 0.00-0.20 K/uL Absolute Immature Granulocyte (auto 0.09 0-1 K/uL Nucleated Red Blood Cells 0.0 0.0-0.19 % Sodium Level 122 L 136-145 mmol/L Potassium Level 4.4 3.5-5.1 mmol/L Chloride Level 92 L 101-111 mmol/L Carbon Dioxide Level 19 L 21-32 mmol/L Blood Urea Nitrogen 18 7-18 mg/dL Creatinine 0.9 0.5-1.3 mg/dL Glomerular Filtration Rate Calc 96 >90 mL/min Random Glucose 97 70-105 mg/dL Total Calcium 8.5 8.5-10.1 mg/dL Magnesium Level 2.40 1.80-2.40 mg/dL Total Bilirubin 1.3 H 0.2-1.0 mg/dL Direct Bilirubin 0.8 H 0.0-0.3 mg/dL Aspartate Amino Transf (AST/SGOT) 233 H 10-37 U/L Alanine Aminotransferase (ALT/SGPT) 126 H 12-78 U/L Alkaline Phosphatase 90 50-136 U/L Total Protein 7.1 6.0-8.3 g/dL Albumin 2.8 L 3.5-5.0 g/dL Prothrombin Time 12.4 H 9.6-11.6 SEC Prothromb Time International Ratio 1.19 H 0.85-1.15 Activated Partial Thromboplast Time 35.8 H 26.3-35.5 SEC Lactic Acid Level 1.1 0.8-2.5 mmol/L Uric Acid 6.8 2.6-7.2 mg/dL Phosphorus Level 3.3 2.5-4.9 mg/dL Thyroid Stimulating Hormone (TSH) 3.40 # 0.36-3.74 uIU/mL B-Type Natriuretic Peptide 701 H 0-100 pg/mL Influenza Type A Antigen Negative For Type A NEGATIVE Influenza Type B Antigen Negative For Type B NEGATIVE Test 11/06/24 16:50 11/06/24 15:01 11/06/24 14:45 11/06/24 14:20 Range/Units Total Creatine Kinase 232 21-232 U/L Blood Gas Specimen Type Arterial Arterial Blood pH 7.497 H 7.350-7.450 Arterial Blood Partial Pressure CO2 24 L 35-48 mmHg Arterial Blood Partial Pressure O2 94.2 83.0-108.0 mmHg Arterial Blood HCO3 17.8 L 21.0-28.0 mmol/L Arterial Blood Oxygen Saturation 97.5 94.0-98.0 % Arterial Blood Base Excess -3.6 L -2.0-3.0 mmol/L Hemoglobin (Blood Gas) 13.4 L 13.5-17.5 g/dL Sodium (Blood Gas) 118 L 136-145 MMOL/L Bedside Potassium (Blood Gas) 5.0 H 3.4-4.5 MMOL/L Bedside Chloride (Blood Gas) 88 *L 98-107 MMOL/L Bedside Glucose (Blood Gas) 82 65-95 MG/DL Bedside Ionized Calcium (Blood Gas) 1.13 L 1.15-1.33 MMOL/L Bedside Lactic Acid (Blood Gas) 2.40 H 0.36-0.75 MMOL/L Blood Gas Temperature 37.0 35.5-37.0 CELSIUS Blood Gas Vent Mode RA ROOM AIR FiO2 21.0 % Blood Gas Specimen Comment LR,SANDY Urine Color YELLOW YELLOW Urine Appearance CLEAR CLEAR Urine pH 5.5 5.0-8.0 Urine Specific [place] 1.022 1.001-1.031 Urine Protein NEGATIVE NEGATIVE mg/dL Urine Glucose (UA) NEGATIVE NEGATIVE mg/dL Urine Ketones 10 H NEGATIVE mg/dL Urine Occult Blood NEGATIVE NEGATIVE Urine Nitrate NEGATIVE NEGATIVE Urine Bilirubin NEGATIVE NEGATIVE mg/dL Urine Urobilinogen 0.2 0.2-1.0 mg/dL Urine Leukocyte Esterase NEGATIVE NEGATIVE Cathy/uL Urine Osmolality 510 50-1200 mOsm/kg Urine Random Creatinine 206.92 H 30-135 mg/dL Urine Random Sodium 16 L 40-220 mmol/l Urine Random Potassium 50 25-125 mmol/L Urine Random Chloride 55 L 110-250 mmol/L SARS-CoV-2, RNA, NAAT NEGATIVE SARS CoV-2 NEGATIVE Test 11/06/24 12:07 Range/Units White Cell Morphology Comment See comments Red Blood Cell Morphology NORMAL D-Dimer Quantitative (PE/DVT) 782 *H 0-500 ng/mL Serum Osmolality 253 L 278-305 mOsm/kg Troponin I High Sensitivity 6 4-75 ng/L Current Medications Medications (Trade) Dose Ordered Sig/Brendon Route PRN Reason Start Time Stop Time Status Last Admin Dose Admin Acetaminophen (TYLenol 500MG TAB) 500 mg Q6H PRN PO MILD PAIN (1-3) 11/06/24 14:00 12/06/24 13:59 Albuterol (DUOneb) 1 UDVIAL Q6H PRN IH SHORTNESS OF BREATH 11/06/24 14:00 12/06/24 13:59 11/07/24 07:13 1 UDVIAL Albuterol Sulfate (Proventil 0.083% 2.5mg/3ml) 90 mg BID IH 11/06/24 21:00 12/06/24 20:59 11/08/24 08:29 90 MG Aspirin (Aspirin 81mg Ec Tab) 81 mg DAILY PO 11/07/24 09:00 12/07/24 08:59 11/08/24 08:28 81 MG Dextrose/Lactated Ringer's 1,000 ml @ 75 mls/hr [id number] IV 11/07/24 10:00 11/07/24 14:18 DC Dronedarone (Multaq) 400 mg BID PO 11/06/24 21:00 12/06/24 20:59 11/08/24 08:28 400 MG Famotidine (Pepcid 20mg Vial) 20 mg BID IV 11/06/24 21:00 11/06/24 16:52 DC Guaifenesin/ Dextromethorphan (RobiTUSSin DM 200/20MG 10ML) 15 ml Q6H PRN PO COUGH 11/06/24 22:00 12/06/24 21:59 Heparin Sodium (Porcine) (HEParin 5,000 UNIT VIAL) 5,000 unit Q12H SQ 11/06/24 22:00 12/06/24 21:59 11/07/24 21:48 5,000 UNIT Home Med (Home Medication) Fluticasone/ Umeclidin/ Vilan... DAILY IH 11/07/24 09:00 12/07/24 08:59 Labetalol HCl (TRANdate 100 MG TABLET) 100 mg BID PO 11/06/24 21:00 12/06/24 20:59 11/06/24 21:34 100 MG Levothyroxine Sodium (SYNTHroid 100MCG TAB) 100 mcg SYN PO 11/07/24 06:30 12/07/24 06:29 11/08/24 06:27 100 MCG Magnesium Sulfate 50 ml @ 0 mls/hr PROTOCOL IV 11/07/24 10:30 12/07/24 10:29 Montelukast Sodium (SinguLAIR) 10 mg HS PO 11/06/24 21:00 12/06/24 20:59 11/07/24 21:41 10 MG Nifedipine (adALAT 30MG) 30 mg HS PO 11/06/24 21:00 12/06/24 20:59 11/06/24 21:34 30 MG Pantoprazole Sodium (PROTonix 40MG TAB) 40 mg DAILY PO 11/07/24 09:00 12/07/24 08:59 11/08/24 08:28 40 MG Potassium Chloride 100 ml @ 100 mls/hr AD PRN IV POTASSIUM PROTOCOL 11/06/24 14:30 12/06/24 14:29 Potassium Chloride (K-Dur/Klor-Con 20meq) 20 meq AD PRN PO POTASSIUM PROTOCOL 11/06/24 14:30 12/06/24 14:29 Potassium Chloride (KCl 10% Elixir 20meq/15ml) 20 meq AD PRN PO POTASSIUM PROTOCOL 11/06/24 14:30 12/06/24 14:29 Sodium Chloride 500 ml @ 75 mls/hr Q6H40M IV 11/06/24 14:00 11/06/24 17:34 DC 11/06/24 14:48 75 MLS/HR Sodium Chloride (Sodium Chloride) 1,000 mg Q8H PO 11/06/24 20:00 11/07/24 04:50 DC 11/06/24 20:20 1,000 MG Sodium Chloride (Sodium Chloride) 1,000 mg Q8H PO 11/07/24 06:00 11/07/24 17:24 DC 11/07/24 12:16 1,000 MG Sodium Chloride (Sodium Chloride) 2,000 mg Q6H6 PO 11/07/24 18:00 12/07/24 05:59 11/08/24 06:27 2,000 MG DIAGNOSTICS / RADIOLOGY: [ ] ASSESSMENT: Severe hyponatremia asymptomatic POA Shortness of breaths differential secondary to recent COVID versus possible PE Atrial fibrillation Hypertension Hyperlipidemia Obesity BMI 31.7 History of HEATHER Recent COVID infection treated as outpatient with Main PLAN: admit: medical surgical floor with Tele account consultant: critical team, Children[facility] Attendant IVF: Heplock free water restriction. latest NA 122 continue with Sodium tablets: 2000mg po q6 hrs cont with aspirin, Multag and labetalol 100 mg po bid for rate controlled - continue with Heparin 5000 unit sub q 12 hrs. blood pressure: Nifedipine labetalol 100 mg po bid continued with CPAP at bed night and prn replaced electrolytes as needed basis ongoing surviellance: to keep K+ > 4.0 and Mag > 2.0 home medications reviewed no changes all questions answered further orders as per response to tx. ATTESTATION BY PHYSICIAN I have seen and examined the patient. I reviewed the documentation, medical decision making, and treatment plan as noted by the mid-level provider above. I agree with the findings and plan of care. DAVID ELKINS MD, ELIZABETH NP Nov 08, 2024 10:55
--- NOTE | 2024-11-08 13:40 | PN ---
NEPHROLOGY PROGRESS NOTE Date/Time Patient Seen: Nov 08, 2024 SUBJECTIVE: This is a 64-year-old male with past medical history of atrial fibrillation, hypertension, hyperlipidemia, and recent COVID infection He presented to the hospital shortness of breath The patient has underlying hyperkalemia admission, atrial fibrillation, hypertension, hyperlipidemia, shortness of breath, obesity, and sleep apnea. The patient remains with low sodium. No fevers, chills, or rigors. No cough, spectrum, hemoptysis. Mild anemia is present. No other associated findings. No other aggravating or relieving factors. We has been consulted for hyponatremia. Sodium today was 125 mmol/L He continues on sodium chloride tablets 2 g p.o. q.6 hours as per pulmonology. He was seen in the medical floor, in no acute distress He is alert and oriented x3 Family at the bedside Condition remains guarded REVIEW OF SYSTEMS: GENERAL: Negative for any nausea, vomiting, fevers, chills, or weight loss. NEUROLOGIC: Negative for any blurry vision, blind spots, double vision, facial asymmetry, dysphagia, dysarthria, hemiparesis, hemisensory deficits, vertigo, ataxia. HEENT: Negative for any head trauma, neck trauma, neck stiffness, photophobia, phonophobia, sinusitis, rhinitis. CARDIAC: Negative for any chest pain, dyspnea on exertion, paroxysmal nocturnal dyspnea, peripheral edema. PULMONARY: Negative for any shortness of breath, wheezing, COPD, or TB exposure. GASTROINTESTINAL: Negative for any abdominal pain, nausea, vomiting, bright red blood per rectum, melena. GENITOURINARY: Negative for any dysuria, hematuria, incontinence. INTEGUMENTARY: Negative for any rashes, cuts, insect bites. RHEUMATOLOGIC: Negative for any joint pains, photosensitive rashes, history of vasculitis or kidney problems. HEMATOLOGIC: Negative for any abnormal bruising, frequent infections or bleeding. Vital Signs (last 8hr) Date Time Temp Pulse Resp B/P (MAP) Pulse Ox O2 Delivery O2 Flow Rate FiO2 11/08/24 11:32 97.9 70 18 104/64 94 Room Air 11/08/24 08:22 97.9 78 18 109/62 95 11/08/24 08:00 95 Room Air* 0 21 11/08/24 07:28 78 20 N/A Room Air 21 PHYSICAL EXAM: GENERAL: Alert and oriented x 3. No acute distress. Well-nourished. EYES: EOMI. Anicteric. HENT: Moist mucous membranes. No scleral icterus. No cervical lymphadenopathy. LUNGS: Clear to auscultation bilaterally. No accessory muscle use. CARDIOVASCULAR: Regular rate and rhythm. No murmur. No JVD. ABDOMEN: Soft, non-tender and non-distended. No palpable masses. EXTREMITIES: No edema. Non-tender.?SKIN: No rashes or lesions. Warm. NEUROLOGIC: No focal neurological deficits. CN II-XII grossly intact, but not individually tested. PSYCHIATRIC: Cooperative. Appropriate mood and affect. Current Medications Medications (Trade) Dose Ordered Sig/Brendon Route PRN Reason Start Time Stop Time Status Last Admin Dose Admin Acetaminophen (TYLenol 500MG TAB) 500 mg Q6H PRN PO MILD PAIN (1-3) 11/06/24 14:00 12/06/24 13:59 Albuterol (DUOneb) 1 UDVIAL Q6H PRN IH SHORTNESS OF BREATH 11/06/24 14:00 12/06/24 13:59 11/07/24 07:13 1 UDVIAL Albuterol Sulfate (Proventil 0.083% 2.5mg/3ml) 2.5 mg BID IH 11/08/24 21:00 12/08/24 20:59 Albuterol Sulfate (Proventil 0.083% 2.5mg/3ml) 90 mg BID IH 11/06/24 21:00 11/08/24 11:05 DC 11/08/24 08:29 90 MG Aspirin (Aspirin 81mg Ec Tab) 81 mg DAILY PO 11/07/24 09:00 12/07/24 08:59 11/08/24 08:28 81 MG Dextrose/Lactated Ringer's 1,000 ml @ 75 mls/hr [id number] IV 11/07/24 10:00 11/07/24 14:18 DC Dronedarone (Multaq) 400 mg BID PO 11/06/24 21:00 12/06/24 20:59 11/08/24 08:28 400 MG Famotidine (Pepcid 20mg Vial) 20 mg BID IV 11/06/24 21:00 11/06/24 16:52 DC Guaifenesin/ Dextromethorphan (RobiTUSSin DM 200/20MG 10ML) 15 ml Q6H PRN PO COUGH 11/06/24 22:00 12/06/24 21:59 Heparin Sodium (Porcine) (HEParin 5,000 UNIT VIAL) 5,000 unit Q12H SQ 11/06/24 22:00 12/06/24 21:59 11/08/24 11:13 5,000 UNIT Home Med (Home Medication) Fluticasone/ Umeclidin/ Vilan... DAILY IH 11/07/24 09:00 12/07/24 08:59 Labetalol HCl (TRANdate 100 MG TABLET) 100 mg BID PO 11/06/24 21:00 12/06/24 20:59 11/06/24 21:34 100 MG Levothyroxine Sodium (SYNTHroid 100MCG TAB) 100 mcg SYN PO 11/07/24 06:30 12/07/24 06:29 11/08/24 06:27 100 MCG Magnesium Sulfate 50 ml @ 0 mls/hr PROTOCOL IV 11/07/24 10:30 12/07/24 10:29 Montelukast Sodium (SinguLAIR) 10 mg HS PO 11/06/24 21:00 12/06/24 20:59 11/07/24 21:41 10 MG Nifedipine (adALAT 30MG) 30 mg HS PO 11/06/24 21:00 12/06/24 20:59 11/06/24 21:34 30 MG Pantoprazole Sodium (PROTonix 40MG TAB) 40 mg DAILY PO 11/07/24 09:00 12/07/24 08:59 11/08/24 08:28 40 MG Potassium Chloride 100 ml @ 100 mls/hr AD PRN IV POTASSIUM PROTOCOL 11/06/24 14:30 12/06/24 14:29 Potassium Chloride (K-Dur/Klor-Con 20meq) 20 meq AD PRN PO POTASSIUM PROTOCOL 11/06/24 14:30 12/06/24 14:29 Potassium Chloride (KCl 10% Elixir 20meq/15ml) 20 meq AD PRN PO POTASSIUM PROTOCOL 11/06/24 14:30 12/06/24 14:29 Sodium Chloride 500 ml @ 75 mls/hr Q6H40M IV 11/06/24 14:00 11/06/24 17:34 DC 11/06/24 14:48 75 MLS/HR Sodium Chloride (Sodium Chloride) 1,000 mg Q8H PO 11/06/24 20:00 11/07/24 04:50 DC 11/06/24 20:20 1,000 MG Sodium Chloride (Sodium Chloride) 1,000 mg Q8H PO 11/07/24 06:00 11/07/24 17:24 DC 11/07/24 12:16 1,000 MG Sodium Chloride (Sodium Chloride) 2,000 mg Q6H6 PO 11/07/24 18:00 12/07/24 05:59 11/08/24 11:09 2,000 MG LABORATORY: [ ] Hematology Labs: Test 11/08/24 05:05 Range/Units White Blood Count 9.2 4.8-10.8 K/uL Red Blood Count 3.74 L 4.50-6.20 MIL/uL Hemoglobin 12.6 L 14.0-18.0 g/dL Hematocrit 35.1 L 42-54 % Mean Corpuscular Volume 93.9 79-99 fL Mean Corpuscular Hemoglobin 33.7 H 27.0-33.0 pg Mean Corpuscular Hemoglobin Concent 35.9 32.0-36.0 g/dL Red Cell Distribution Width 12.1 11.0-15.5 % Platelet Count 210 130-400 K/uL Mean Platelet Volume 9.3 7.5-10.5 fL Immature Granulocyte % (Auto) 1.0 0-1 % Neutrophils (%) (Auto) 85.1 H 40.0-77.0 % Lymphocytes (%) (Auto) 3.4 L 21.0-51.0 % Monocytes (%) (Auto) 10.3 3.0-13.0 % Eosinophils (%) (Auto) 0.1 0.0-8.0 % Basophils (%) (Auto) 0.1 0.0-5.0 % Neutrophils # (Auto) 7.8 H 1.8-7.7 K/uL Lymphocytes # (Auto) 0.3 L 1.0-4.8 K/uL Monocytes # (Auto) 1.0 0.1-1.0 K/uL Eosinophils # (Auto) 0.01 0.00-0.70 K/uL Basophils # (Auto) 0.01 0.00-0.20 K/uL Absolute Immature Granulocyte (auto 0.09 0-1 K/uL Nucleated Red Blood Cells 0.0 0.0-0.19 % Chemistry Labs: Test 11/08/24 10:51 11/08/24 05:05 11/07/24 07:05 11/07/24 02:10 Range/Units Sodium Level 125 L 136-145 mmol/L Potassium Level 4.4 3.5-5.1 mmol/L Chloride Level 92 L 101-111 mmol/L Carbon Dioxide Level 19 L 21-32 mmol/L Blood Urea Nitrogen 18 7-18 mg/dL Creatinine 0.9 0.5-1.3 mg/dL Glomerular Filtration Rate Calc 96 >90 mL/min Random Glucose 97 70-105 mg/dL Total Calcium 8.5 8.5-10.1 mg/dL Magnesium Level 2.40 1.80-2.40 mg/dL Total Bilirubin 1.3 H 0.2-1.0 mg/dL Direct Bilirubin 0.8 H 0.0-0.3 mg/dL Aspartate Amino Transf (AST/SGOT) 233 H 10-37 U/L Alanine Aminotransferase (ALT/SGPT) 126 H 12-78 U/L Alkaline Phosphatase 90 50-136 U/L Total Protein 7.1 6.0-8.3 g/dL Albumin 2.8 L 3.5-5.0 g/dL Cortisol AM Sample 10.5 6.2-19.4 ug/dL Lactic Acid Level 1.1 0.8-2.5 mmol/L Uric Acid 6.8 2.6-7.2 mg/dL Phosphorus Level 3.3 2.5-4.9 mg/dL Thyroid Stimulating Hormone (TSH) 3.40 # 0.36-3.74 uIU/mL Test 11/06/24 22:51 11/06/24 16:50 Range/Units B-Type Natriuretic Peptide 701 H 0-100 pg/mL Total Creatine Kinase 232 21-232 U/L Cortisol PM Sample 12.1 H 2.3-11.9 ug/dL Coagulation Labs: Test 11/07/24 02:10 Range/Units Prothrombin Time 12.4 H 9.6-11.6 SEC Prothromb Time International Ratio 1.19 H 0.85-1.15 Activated Partial Thromboplast Time 35.8 H 26.3-35.5 SEC DIAGNOSTICS / RADIOLOGY: REASON: Transaminitis ORDERING PHYSICIAN: JIMMIE AGUILARP PROCEDURE: ABD WALL - US ABD LIMITED/ABD WALL Exam Type: US ABD LIMITED/ABD WALL Clinical Information: Transaminitis Comparison: None Findings: The liver shows fatty infiltration and is enlarged, measuring 19.6 cm cm and is otherwise unremarkable. Doppler evaluation shows patent portal and hepatic veins. The gallbladder shows no significant abnormalities. Specifically, no calculi are seen. No bile duct dilatation is noted. The gallbladder wall measures 2 mm. The common bile duct measures 4 mm. The right kidney measures 11.9 x 5.8 cm- it shows no hydronephrosis or calculi, masses or other abnormalities. Simple cyst right kidney midpole 2.4 cm. The pancreas is suboptimally visualized. The aorta and inferior vena cava show no significant abnormalities. IMPRESSION: FATTY LIVER INFILTRATION AND HEPATOMEGALY. OTHERWISE NORMAL RIGHT UPPER QUADRANT ABDOMINAL ULTRASOUND. DICTATED BY: NAHEED FOX MD DATE: 11/07/24 1021 REASON: Elevated BNP, SOB on exertion ORDERING PHYSICIAN: JIMMIE AGUILAR PROCEDURE: ECHO CMP - ECHO 2-D COMPLETE APPROVED REPORT EXAM: Two-dimensional and M-mode echocardiogram with Doppler and color Doppler. INDICATION ICD: Elevated BNP, shortness of breath on exertion 2D Dimensions RVDd 3.9 cm LVEF(%) 54.1 (>50%) LVED Vol(simp.) 117.0 mL IVSd 0.8 (0.7-1.1cm) FS(%) 28 % LVES Vol(simp.) 31.0 mL LVDd 5.5 (3.8-5.6cm) LA (2D) 4.6 (1.6-4.0cm) LVEF(%, simp.) 73 % PWd 0.8 (0.7-1.1cm) Ao Root(2D) 3.4 (2.0-3.7cm) LA ESV INDEX (BP) 39.22 mL/m2 IVSs 1.1 cm LVOT diam 2.3 (1.8-2.4cm) LVDs 3.9 (2.5-4.0cm) IVC diam 1.8 cm PWs 1.2 cm Deformation Strain Apical 4 -21.3 % Apical 2 -22.3 % Apical 3 -22.5 % Global Strain -22.0 % M-Mode Dimensions EPSS 0.8 cm LA (MM) 4.8 (1.6-4.0cm) Ao Root(MM) 3.7 (2.0-3.7cm) Aortic Valve AoV Vmax 1.7 m/s Ao Peak GR 11.2 mmHg LVOT Vmax 1.5 m/s AoV VTI 0.3 m Ao Mean GR 6.3 mmHg LVOT VTI 0.31 m PEDRO (VMAX) 3.70 cm2 PEDRO (VTI) 4.2 cm2 Mitral Valve MV E Vmax 75.8 cm/s DECEL Time 295 ms MV A Vmax 68.7 cm/s P 1/2 T 35 ms E/A ratio 1.1 MVA (PHT) 6.3 cm2 TDI E/E' Medial 9.0 E/E' Lateral 8.3 Medial E' Peak V 8.40 cm/s Lateral E' Peak V 9.15 cm/s Pulmonary Valve PV Vmax 1.3 m/s PV VTI 0.30 m PV Mean GR 4.4 mmHg PV Peak GR 7.2 mmHg Tricuspid Valve RAP (EST) 3 mmHg RVSP 3.0 mmHg Left Ventricle The left ventricle is normal size. GLS -22.0%. There is normal left ventricular wall thickness. LVEF is >70%. 3D volume EF 72%. The left ventricular diastolic function is normal. Right Ventricle The right ventricle is normal size. The right ventricular systolic function is normal. RV FAC 41%. Atria The left atrium is mildly dilated. The right atrium is mildly dilated. Aortic Valve The aortic valve is normal in structure. No aortic regurgitation is present. There is no aortic valvular stenosis. Mitral Valve The mitral valve is normal in structure. There is mild mitral valve regurgitation noted. There is no mitral valve stenosis. Tricuspid Valve The tricuspid valve is normal in structure. There is trace of tricuspid valve regurgitation noted. Pulmonic Valve The pulmonary valve is normal in structure. There is no pulmonic valvular regurgitation. Great Vessels The aortic root is normal in size. The IVC is normal in size and collapses >50% with inspiration. Pericardium There is no pericardial effusion. Other Information Quality : Adequate Rhythm : NSR Conclusion LVEF is >70%. 3D volume EF 72%. The left ventricular diastolic function is normal. The left atrium is mildly dilated. Mild mitral valve regurgitation noted. DICTATED BY: SHIVANI REED DO DATE: 11/07/24 1020 REASON: ASSESS FOR DVT ORDERING PHYSICIAN: JOVANA SHI MD PROCEDURE: VENOUS ROXANNE - US VENOUS DOPPLER BILATERAL US VENOUS DOPPLER BILATERAL HISTORY: Shortness of breath COMPARISON: None TECHNIQUE: Bilateral lower extremity venous Doppler ultrasound study was performed. FINDINGS: The common femoral, femoral, popliteal, and posterior tibial veins are visualized. Normal flow with augmentation and compressibilities are demonstrated. The greater saphenous veins are also seen and grossly patent. IMPRESSION: 1. No evidence of deep venous thrombosis is seen. DICTATED BY: BRUCE BAILEY MD DATE: 11/06/242217 REASON: dyspnea ORDERING PHYSICIAN: JIMMIE AGUILAR [employer] ELECT[employer]ICS TECHNICIAN PROCEDURE: CHES PE - CT CHEST PE PROTOCOL WWO CONT CT CHEST PE PROTOCOL WWO CONT HISTORY: Dyspnea COMPARISON: None TECHNIQUE: CT angiography of the chest was performed. The study was performed using angiographic technique with maximum intensity projection reconstruction images. Patient was given 75 cc of Omnipaque through intravenous route. FINDINGS: Pulmonary arteries are poorly opacified limiting evaluation. No CT evidence of filling defect is seen to suggest pulmonary embolus. No CT evidence of aortic dissection is seen. No evidence of parenchymal disease is seen. No CT evidence of pleural effusion or pericardial effusion is seen. The heart is enlarged. Coronary arterial calcifications are seen. No evidence of adrenal mass is seen. Degenerative changes of the spine are noted. IMPRESSION: 1. Pulmonary arteries are poorly opacified limiting evaluation. No gross CT evidence of acute pulmonary embolus is seen. This is a suboptimal study. CT was performed with one or more following dose reduction techniques: automated exposure control, adjustment of the mA and kv according to patient's size, or use of a iterative reconstruction technique. DICTATED BY: BRUCE BAILEY MD DATE: 11/06/242128 REASON: cough,sob ORDERING PHYSICIAN: SHANNEN KUMARI NP PROCEDURE: CXR1VW - CHEST 1VW Exam Type: CHEST 1VW Clinical Information: cough,sob Comparison: None Findings: The lungs are clear of infiltrates. The heart is normal in size. The bony and soft tissue structures of the chest are unremarkable. Impression: Clear lungs. DICTATED BY: NAHEED FOX MD DATE: 11/06/24 1451 ASSESSMENT: Severe hyponatremia asymptomatic Shortness of breaths Atrial fibrillation Hypertension Hyperlipidemia Obesity History of HEATHER Recent COVID infection treated as outpatient with Main PLAN: Labs, diagnostic, radiologic exams reviewed and interpreted by myself and supervising physician. We have reviewed external records in detail Fluid restriction is recommended Continue with sodium chloride tabs Require close monitoring of renal function and electrolytes Order CBC, CMP, and electrolytes in am Continue with antibiotics Renal diabetic diet BiPAP as necessary, for respiratory distress IV pressors as needed Monitor blood pressure adjust medication doses as needed Avoid hypotensive episodes May use Dilaudid 0.5 mg IV every 6 hours as needed for severe pain Monitor blood sugars Strict intake, output, and daily weight should be monitored Please renally adjust medications Avoid nephrotoxic and nonsteroidal drugs Avoid contrast if possible Will continue to monitor renal function, anemia, electrolytes Treatment plan discussed with patient Questions were answered We have discussed with the other team physicians in detail about the care plan We will continue to monitor the patient closely ATTESTATION BY PHYSICIAN I have seen and examined the patient. I reviewed the documentation, medical decision making, and treatment plan as noted by the mid-level provider above. I agree with the findings and plan of care. CRISTINA TAM MD, [facility] Nov 08, 2024 13:40
[2024-11-08] MEDS: ALBUTEROL 0.083% 2.5 MG/3 ML INH IH ONE (18:11)
[2024-11-08] MEDS: ALBUTEROL 0.083% 2.5 MG/3 ML INH IH SCH (18:41)
[2024-11-08] MEDS ORDERED: DESL5TAB45 PO (19:49)
[2024-11-08] MEDS ORDERED: ROSU5TAB51 PO (19:49)
[2024-11-08] MEDS ORDERED: TELM80TA10 PO (19:49)
--- NOTE | 2024-11-08 23:11 | PN ---
[facility] PROGRESS NOTE Date Patient Seen: Nov 08, 2024 Time of Visit: 23:11 Supervising Physician: Dr. Jameel Begum Primary Care Physician: Outpatient Specialists: Dr. 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 Inpatient Consults: BIS, critical care team nephrology PROBLEM LIST: Severe hyponatremia, asymptomatic, POA -2 g sodium chloride tablets q.6 hours scheduled -serial sodium levels q.6 hours SIDH Dyspnea on exertion, POA Fluid overload, BNP 701, POA Elevated D-dimer,, POA ruled out PE Transaminitis, POA Respiratory alkalosis, POA Acute kidney injury, GFR 56 Acute or chronic kidney disease, GFR 62-76 in 03/2024 Acute dehydration/ketonuria, POA Anemia History of Atrial fibrillation, currently sinus rhythm Hypertension Hyperlipidemia Obesity, BMI 31.7 History of HEATHER Recent COVID infection treated as outpatient with Paxlovid INTERVAL HISTORY: Mr. Rosenthal is a 64-year-old male with past medical history of atrial fibrillation, hypertension, hyperlipidemia who presented to the hospital shortness of breath on exertion. The patient was recently diagnosed with COVID by his primary care provider and was placed on Paxlovid. He took the medication for five days. Stated he has been mostly drinking electrolyte rich solution at home. He has not been drinking more than usual. He drinks only when he is thirsty. The patient denied cough, chest pain, abdominal pain, nausea, vomiting, confusion, seizure-like activity, falls, syncopal episode, abdominal pain, diarrhea, fever, or chills. He only takes aspirin every other day for AFib, no anticoagulation. Labs: WBC 10.6, hemoglobin was 13.6, platelet count was 259 K, sodium on presentation was 117, potassium was 4.9, GFR 56, creatinine was 1.4, bicarb was 19, BUN was 24, troponin was negative x1. Chest x-ray was noted to be clear. Initial Na was 117, 2nd 118, 3rd 115. ED provider ordered NS 500 mL. (when I assessed the patient in ED less 75 ml had been infused). Hyperkalemia was treated with Lokelma 5 mg. 11/07-patient is resting in bed lying in a high Baldwin's position watching television during the time of my assessment. Reviewed with the diagnostic laboratory studies for the day and laboratory studies vital signs. IV fluid has been discontinued. Patient has been discontinued on the the dextrose LR IV fluid, fluid restriction, sodium tablets 2 g q.6 hours with serial sodiums to be checked q.6 hours. The goal is to gently raise the patient's sodium level with the focus on the laboratory studies and patient's presentation. Patient is hemodynamically stable at this time. Echocardiogram was ordered completed and resulted EF between 65-70%. A.m. laboratory studies have been ordered for tomorrow 11/08-patient has assess day bedside the patient was resting in bed lying in a supine position resting comfortably with no family members nor friends present. Patient reports friends coming to visit this afternoon. Patient was informed of laboratory values, results of diagnostic tests were reviewed, and vital signs. Patient's sodium level is coming up. Patient reports feeling much for awake alert and patient is hemodynamically stable. We will continue plan of serial s odiums with sodium chloride tablets q.6 hours. Anticipate the patient being discharged in next 24-36 hours. REVIEW OF SYSTEMS: 12 point ROS reviewed with patient. Pertinent positives mentioned above. Otherwise negative. PHYSICAL EXAM: GENERAL: Alert, awake oriented x 4 HEENT: EOMI, Sclera non icteric, moist mucosa NECK: Supple, no JVD, trachea midline LUNGS: Clear breath sounds bilaterally. No wheezes HEART: Regular rate and rhythm. Normal S1 and S2, without murmurs ABD: Obese. Abdomen soft, nontender. Bowel sounds present EXT: No clubbing cyanosis or edema NEURO: Alert and oriented X4, follows commands. NIH 0 Vital Signs (last 8hr) Date Time Temp Pulse Resp B/P (MAP) Pulse Ox O2 Delivery O2 Flow Rate FiO2 11/08/24 20:00 98.2 74 17 113/66 96 Room Air 21 11/08/24 18:43 77 20 11/08/24 18:43 77 20 N/A Room Air 21 11/08/24 16:56 97.7 66 18 109/61 97 11/08/24 16:56 97.7 66 18 109/61 97 Room Air LABS: Hematology Labs: Test 11/08/24 05:05 Range/Units White Blood Count 9.2 4.8-10.8 K/uL Red Blood Count 3.74 L 4.50-6.20 MIL/uL Hemoglobin 12.6 L 14.0-18.0 g/dL Hematocrit 35.1 L 42-54 % Mean Corpuscular Volume 93.9 79-99 fL Mean Corpuscular Hemoglobin 33.7 H 27.0-33.0 pg Mean Corpuscular Hemoglobin Concent 35.9 32.0-36.0 g/dL Red Cell Distribution Width 12.1 11.0-15.5 % Platelet Count 210 130-400 K/uL Mean Platelet Volume 9.3 7.5-10.5 fL Immature Granulocyte % (Auto) 1.0 0-1 % Neutrophils (%) (Auto) 85.1 H 40.0-77.0 % Lymphocytes (%) (Auto) 3.4 L 21.0-51.0 % Monocytes (%) (Auto) 10.3 3.0-13.0 % Eosinophils (%) (Auto) 0.1 0.0-8.0 % Basophils (%) (Auto) 0.1 0.0-5.0 % Neutrophils # (Auto) 7.8 H 1.8-7.7 K/uL Lymphocytes # (Auto) 0.3 L 1.0-4.8 K/uL Monocytes # (Auto) 1.0 0.1-1.0 K/uL Eosinophils # (Auto) 0.01 0.00-0.70 K/uL Basophils # (Auto) 0.01 0.00-0.20 K/uL Absolute Immature Granulocyte (auto 0.09 0-1 K/uL Nucleated Red Blood Cells 0.0 0.0-0.19 % Chemistry Labs: Test 11/08/24 22:46 11/08/24 05:05 11/07/24 07:05 11/07/24 02:10 Range/Units Sodium Level 127 L 136-145 mmol/L Potassium Level 4.4 3.5-5.1 mmol/L Chloride Level 92 L 101-111 mmol/L Carbon Dioxide Level 19 L 21-32 mmol/L Blood Urea Nitrogen 18 7-18 mg/dL Creatinine 0.9 0.5-1.3 mg/dL Glomerular Filtration Rate Calc 96 >90 mL/min Random Glucose 97 70-105 mg/dL Total Calcium 8.5 8.5-10.1 mg/dL Magnesium Level 2.40 1.80-2.40 mg/dL Total Bilirubin 1.3 H 0.2-1.0 mg/dL Direct Bilirubin 0.8 H 0.0-0.3 mg/dL Aspartate Amino Transf (AST/SGOT) 233 H 10-37 U/L Alanine Aminotransferase (ALT/SGPT) 126 H 12-78 U/L Alkaline Phosphatase 90 50-136 U/L Total Protein 7.1 6.0-8.3 g/dL Albumin 2.8 L 3.5-5.0 g/dL Serum Osmolality 254 L 278-305 mOsm/kg Cortisol AM Sample 10.5 6.2-19.4 ug/dL Lactic Acid Level 1.1 0.8-2.5 mmol/L Uric Acid 6.8 2.6-7.2 mg/dL Phosphorus Level 3.3 2.5-4.9 mg/dL Thyroid Stimulating Hormone (TSH) 3.40 # 0.36-3.74 uIU/mL Coagulation Labs: Test 11/07/24 02:10 Range/Units Prothrombin Time 12.4 H 9.6-11.6 SEC Prothromb Time International Ratio 1.19 H 0.85-1.15 Activated Partial Thromboplast Time 35.8 H 26.3-35.5 SEC DIAGNOSTICS / RADIOLOGY RESULTS: [ ] PLAN -Continue medical telemetry monitoring. -start patient on 2 g sodium Q six -discontinue IV fluid, fluid restriction -serial sodiums q.6 hours. -Correct sodium slowly up to 5-6 mEq a day. -Nephrology consult. -Obtain BNP, monitor for fluid overload. -Echocardiogram results: LVEF is >70%. 3D volume EF 72%. The left ventricular diastolic function is normal. The left atrium is mildly dilated. Mild mitral valve regurgitation noted. Ultrasound right upper quadrant abdomen impression: FATTY LIVER INFILTRATION AND HEPATOMEGALY. OTHERWISE NORMAL RIGHT UPPER QUADRANT ABDOMINAL ULTRASOUND. -Obtain peak flow in admit/q.a.m. -Monitor respiratory status closely. -Oxygen therapy as needed. Titrate oxygen prn to keep Spo2>/+=92%. -Start patient's Trelegy Ellipta in am. -Patient's home medications were reconciled: Aspirin, Multaq, labetalol, levothyroxine, nifedipine ER, albuterol inhalver, Trelegy Ellipta, montelukast, omeprazole. -RT to provide IS and education on use. -Robitussin DM as needed cough. -p.r.n. medications for: Pain management, fever, nausea, vomiting, constipation, hypertension. -Glucometer checks AC & HS needed with insulin regular sliding scale coverage as needed. -Blood pressure checks every 4 hours and as needed. -AM labs. -Monitor renal and liver function -Monitor electrolytes and treat accordingly. -GI and DVT prophylaxis: Protonix and -Additional plan and orders per hospitalization course. NEURO: Minimize central acting medications as possible. Maintain fall precautions, adequate lighting during the day PULMONARY: Supplemental 02 as needed. Maintain aspiration precautions at all times CARDIOVASCULAR: Follow hemodynamics. Vital signs per facility protocol GI & NUTRITION: Continue with nutritional support. Continue stool softeners and laxatives as needed. KIDNEYS & ELECTROLYTES: Strict monitoring of intake, output and overall fluid balance. Avoid nephrotoxic medications to the extent possible. Medications to be dosed according to renal function. Monitor electrolytes and replace as needed ENDOCRINE: Maintain blood glucose between 100-180 at all times. Hypoglycemia protocol in place INFECTIOUS DISEASE: Trend temperature, WBC and procalcitonin level Follow cultures, deescalate antibiotics as soon as possible. Panculture if new onset fever ONCOLOGY/HEMATOLOGY/COAGULATION: Monitor for s/s of bleeding Monitor hemoglobin, coagulation studies as needed SKIN: Pressure ulcer prevention per facility protocol Specialty mattress ORTHO/REHAB: Continue PT/OT Prophylaxis: Continue GI and DVT prophylaxis Code Status: Full Resuscitation Disposition: TBD Other: Consulted with Dr. Shukla on this patient. Total patient critical care time exceeds 40 minutes excluding all procedures. IVELISSE BOX NP Nov 08, 2024 23:11
[2024-11-09] VITALS (8 sets, daily range): BP systolic 100–123; BP diastolic 67–68; PULSE 70–82; RESP 17–20; TEMP 98–98.2; O2SAT 93–96
--- NOTE | 2024-11-09 00:43 | NUR ---
PT REFUSED BP MEDS PT STATED HE WILL NOT BE TAKING HIS BP MEDS AT THE MOMENT STATED HE WILL LET US KNOW WHEN NEEDED.
[2024-11-09] MEDS: CALCIUM CARB 500MG CHEW TAB PO SCH (04:11)
[2024-11-09 05:34] LABS: BASOPHILS # (AUTO) 0.01 K/uL (0.00-0.20); BASOPHILS % (AUTO) 0.1 % (0.0-5.0); EOSINOPHILS # (AUTO) 0.03 K/uL (0.00-0.70); EOSINOPHILS % (AUTO) 0.4 % (0.0-8.0); IMMATURE GRANULOCYTE ABSOLUTE 0.07 K/uL (0-1); LYMPHOCYTES # (AUTO) 0.3 K/uL (1.0-4.8); LYMPHOCYTES % (AUTO) 3.3 % (21.0-51.0); MEAN CORPUSCULAR HEMOGLOBIN 33.6 pg (27.0-33.0); MEAN CORPUSCULAR HGB CONC 35.4 g/dL (32.0-36.0); MEAN CORPUSCULAR VOLUME 94.9 fL (79-99); MONOCYTES # (AUTO) 0.9 K/uL (0.1-1.0); MONOCYTES % (AUTO) 10.7 % (3.0-13.0); NEUTROPHILS # (AUTO) 6.9 K/uL (1.8-7.7); NEUTROPHILS % (AUTO) 84.6 % (40.0-77.0); PLATELET COUNT (AUTO) 258 K/uL (130-400); RED CELL DISTRIBUTION WIDTH 12.5 % (11.0-15.5); WHITE BLOOD COUNT (AUTO) 8.1 K/uL (4.8-10.8)
[2024-11-09 05:51] LABS: ALBUMIN 2.9 g/dL (3.5-5.0); BILIRUBIN,TOTAL 1.7 mg/dL (0.2-1.0); CREATININE 1.1 mg/dL (0.5-1.3); MAGNESIUM 2.5 mg/dL (1.80-2.40); POTASSIUM 4.4 mmol/L (3.5-5.1); TOTAL PROTEIN, SERUM 7.4 g/dL (6.0-8.3); URIC ACID 6.3 mg/dL (2.6-7.2)
--- NOTE | 2024-11-09 09:09 | PN ---
[facility] PROGRESS NOTE Date of Service: Nov 09, 2024 Time of Service: 09:06 SUBJECTIVE: [ ] A 64-year-old male with past medical history of atrial fibrillation, hypertension, hyperlipidemia presented to the hospital shortness of breath. The patient was recently diagnosed with COVID by his primary care provider and was placed on Paxlovid. He took the medication for five days. Since finishing the course patient states he has been feeling short of breath at rest and with exertion. He denies any chest pain, abdominal pain, nausea vomiting. Denied any confusion, seizure-like activity, falls, syncopal episode. States he has been mostly drinking electrolyte rich solution at home. He has not been drinking more than usual. He drinks only when he is thirsty. Denied any abdominal pain, diarrhea, fever, chills. Denied any cough. He only takes aspirin every other day for AFib. He is not on any anticoagulation. 11/07/24 patient is seen and examined patient is fully awake alert oriented x3. latest [id number] supervisor throwing department's was consulted. will follow recommendations 11/08/24 earlier patient is fully awake alert oriented x3. Denied chest pain, headaches palpitations. Patient was started on sodium tablets per supervisor throwing department's latest sodium 122. 11/09/24 patient was seen patient appears to be upset this morning he reports was unable to sleep overnight given to medical staff going into his room. Fluid restriction continues1 L per day sodium today 129. Denies headache shortness a breath dizziness. REVIEW OF SYSTEMS CONSTITUTIONAL: Denies fevers, chills, or night sweats. No unintentional weight loss reported. NEUROLOGICAL: Denies headache, amaurosis fugax, motor weakness, sensory deficit, vertigo/spinning sensation, gait abnormalities, or tremors. ENT: No hearing loss, otalgia, otorrhea, rhinitis, rhinorrhea, hoarseness, or sore throat. CARDIOVASCULAR: Denies any exertional angina, dyspnea on exertion, orthopnea, paroxysmal nocturnal dyspnea, palpitations, life-threatening arrhythmias, claudication. PULMONARY: Positive for shortness of breaths. Denied any cough, sputum production GASTROINTESTINAL: Denies any type of dysphagia to either liquids or solids. Denies nausea, vomiting, pyrosis, early satiety, abdominal pain, diarrhea, constipation, or changes in stool consistency or caliber. Denies coffee-ground emesis, hematemesis, hematochezia, or melanotic stools. GENITOURINARY: Denies frequency, urgency, nocturia, hematuria or incontinence (Storage/Irritative symptoms.) Low urinary stream, straining to void, urinary intermittency or hesitancy, splitting of the voiding stream, terminal dribbling. ENDOCRINOLOGIC: Denies polyuria, polydipsia, polyphagia or heat/cold intolerances. HEMATOLOGIC: Denies thrombophilia/previous clots, or coagulopathy/bleeding disorders. ONCOLOGIC: Denies personal history of malignancy. DERMATOLOGIC: Denies rashes or pruritus. PSYCHIATRIC: Denies any suicidal or homicidal ideation. Denies hallucinations. PHYSICAL EXAM GENERAL APPEARANCE: The patient is awake, alert, and oriented, in no acute cardiopulmonary distress. NEUROLOGICAL: Cranial nerves II-XII grossly intact. Motor is 5/5 in bilateral upper and lower extremities proximal to distal. No sensory deficits. HEENT: Face is symmetric. Pupils are equal and reactive. Extraocular movements are intact. NECK: Supple. No JVD. No thyromegaly. No submental, submandibular, pre- /postauricular, occipital or supraclavicular lymphadenopathy. CHEST: Normal chest expansion. No Telemetry. LUNGS: Absence of any rales, rhonchi or any wheezing. CARDIOVASCULAR: Regular. S1 and S2 normal. No appreciable rubs, murmurs or gallops. ABDOMEN: Soft, nontender, and nondistended. There is no rebound, voluntary guarding, or rigidity. : Deferred. No Guevara. EXTREMITIES: Non-edematous and not cyanotic. No clubbing. Good capillary refill. SKIN: No skin breakdown. Vital Signs (last 8hr) Date Time Temp Pulse Resp B/P (MAP) Pulse Ox O2 Delivery O2 Flow Rate FiO2 11/09/24 08:05 98.1 72 18 120/67 93 11/09/24 06:58 82 20 N/A Room Air 21 11/09/24 06:58 82 20 11/09/24 04:00 98.1 74 17 100/67 98 CPAP 11/09/24 01:30 96 Room Air* 0 21 LABS: Laboratory: Test 11/09/24 05:10 11/08/24 05:05 Range/Units White Blood Count 8.1 4.8-10.8 K/uL Red Blood Count 3.90 L 4.50-6.20 MIL/uL Hemoglobin 13.1 L 14.0-18.0 g/dL Hematocrit 37.0 L 42-54 % Mean Corpuscular Volume 94.9 79-99 fL Mean Corpuscular Hemoglobin 33.6 H 27.0-33.0 pg Mean Corpuscular Hemoglobin Concent 35.4 32.0-36.0 g/dL Red Cell Distribution Width 12.5 11.0-15.5 % Platelet Count 258 130-400 K/uL Mean Platelet Volume 9.3 7.5-10.5 fL Immature Granulocyte % (Auto) 0.9 0-1 % Neutrophils (%) (Auto) 84.6 H 40.0-77.0 % Lymphocytes (%) (Auto) 3.3 L 21.0-51.0 % Monocytes (%) (Auto) 10.7 3.0-13.0 % Eosinophils (%) (Auto) 0.4 0.0-8.0 % Basophils (%) (Auto) 0.1 0.0-5.0 % Neutrophils # (Auto) 6.9 1.8-7.7 K/uL Lymphocytes # (Auto) 0.3 L 1.0-4.8 K/uL Monocytes # (Auto) 0.9 0.1-1.0 K/uL Eosinophils # (Auto) 0.03 0.00-0.70 K/uL Basophils # (Auto) 0.01 0.00-0.20 K/uL Absolute Immature Granulocyte (auto 0.07 0-1 K/uL Nucleated Red Blood Cells 0.0 0.0-0.19 % Sodium Level 129 L 136-145 mmol/L Potassium Level 4.4 3.5-5.1 mmol/L Chloride Level 95 L 101-111 mmol/L Carbon Dioxide Level 21 21-32 mmol/L Blood Urea Nitrogen 19 H 7-18 mg/dL Creatinine 1.1 0.5-1.3 mg/dL Glomerular Filtration Rate Calc 75 >90 mL/min Random Glucose 114 H 70-105 mg/dL Uric Acid 6.3 2.6-7.2 mg/dL Total Calcium 8.3 L 8.5-10.1 mg/dL Magnesium Level 2.50 H 1.80-2.40 mg/dL Total Bilirubin 1.7 H 0.2-1.0 mg/dL Aspartate Amino Transf (AST/SGOT) 156 H 10-37 U/L Alanine Aminotransferase (ALT/SGPT) 121 H 12-78 U/L Alkaline Phosphatase 97 50-136 U/L Total Protein 7.4 6.0-8.3 g/dL Albumin 2.9 L 3.5-5.0 g/dL Direct Bilirubin 0.8 H 0.0-0.3 mg/dL Current Medications Medications (Trade) Dose Ordered Sig/Brendon Route PRN Reason Start Time Stop Time Status Last Admin Dose Admin Acetaminophen (TYLenol 500MG TAB) 500 mg Q6H PRN PO MILD PAIN (1-3) 11/06/24 14:00 12/06/24 13:59 Albuterol (DUOneb) 1 UDVIAL Q6H PRN IH SHORTNESS OF BREATH 11/06/24 14:00 12/06/24 13:59 11/07/24 07:13 1 UDVIAL Albuterol Sulfate (Proventil 0.083% 2.5mg/3ml) 2.5 mg BID IH 11/08/24 21:00 12/08/24 20:59 11/09/24 06:58 2.5 MG Albuterol Sulfate (Proventil 0.083% 2.5mg/3ml) 90 mg BID IH 11/06/24 21:00 11/08/24 11:05 DC 11/08/24 08:29 90 MG Aspirin (Aspirin 81mg Ec Tab) 81 mg DAILY PO 11/07/24 09:00 12/07/24 08:59 11/09/24 08:29 81 MG Calcium Carbonate (Tums 500 Mg Chew Tab) 2 tab ONCE PO 11/09/24 04:00 12/09/24 03:59 11/09/24 04:11 2 TAB Dextrose/Lactated Ringer's 1,000 ml @ 75 mls/hr [id number] IV 11/07/24 10:00 11/07/24 14:18 DC Dronedarone (Multaq) 400 mg BID PO 11/06/24 21:00 12/06/24 20:59 11/09/24 08:29 400 MG Famotidine (Pepcid 20mg Vial) 20 mg BID IV 11/06/24 21:00 11/06/24 16:52 DC Guaifenesin/ Dextromethorphan (RobiTUSSin DM 200/20MG 10ML) 15 ml Q6H PRN PO COUGH 11/06/24 22:00 12/06/24 21:59 Heparin Sodium (Porcine) (HEParin 5,000 UNIT VIAL) 5,000 unit Q12H SQ 11/06/24 22:00 12/06/24 21:59 11/08/24 22:56 5,000 UNIT Home Med (Home Medication) Fluticasone/ Umeclidin/ Vilan... DAILY IH 11/07/24 09:00 12/07/24 08:59 Labetalol HCl (TRANdate 100 MG TABLET) 100 mg BID PO 11/06/24 21:00 12/06/24 20:59 11/06/24 21:34 100 MG Levothyroxine Sodium (SYNTHroid 100MCG TAB) 100 mcg SYN PO 11/07/24 06:30 12/07/24 06:29 11/09/24 05:59 100 MCG Magnesium Sulfate 50 ml @ 0 mls/hr PROTOCOL IV 11/07/24 10:30 12/07/24 10:29 Montelukast Sodium (SinguLAIR) 10 mg HS PO 11/06/24 21:00 12/06/24 20:59 11/08/24 20:59 10 MG Nifedipine (adALAT 30MG) 30 mg HS PO 11/06/24 21:00 12/06/24 20:59 11/06/24 21:34 30 MG Pantoprazole Sodium (PROTonix 40MG TAB) 40 mg DAILY PO 11/07/24 09:00 12/07/24 08:59 11/09/24 08:29 40 MG Potassium Chloride 100 ml @ 100 mls/hr AD PRN IV POTASSIUM PROTOCOL 11/06/24 14:30 12/06/24 14:29 Potassium Chloride (K-Dur/Klor-Con 20meq) 20 meq AD PRN PO POTASSIUM PROTOCOL 11/06/24 14:30 12/06/24 14:29 Potassium Chloride (KCl 10% Elixir 20meq/15ml) 20 meq AD PRN PO POTASSIUM PROTOCOL 11/06/24 14:30 12/06/24 14:29 Sodium Chloride 500 ml @ 75 mls/hr Q6H40M IV 11/06/24 14:00 11/06/24 17:34 DC 11/06/24 14:48 75 MLS/HR Sodium Chloride (Sodium Chloride) 1,000 mg Q8H PO 11/06/24 20:00 11/07/24 04:50 DC 11/06/24 20:20 1,000 MG Sodium Chloride (Sodium Chloride) 1,000 mg Q8H PO 11/07/24 06:00 11/07/24 17:24 DC 11/07/24 12:16 1,000 MG Sodium Chloride (Sodium Chloride) 2,000 mg Q6H6 PO 11/07/24 18:00 12/07/24 05:59 11/09/24 05:59 2,000 MG DIAGNOSTICS / RADIOLOGY: [ ] ASSESSMENT: Severe hyponatremia asymptomatic POA likely in setting of recent HCTZ use hypovolemia, improving metabolic acidosis POA resolvied Shortness of breaths differential secondary to recent COVID versus possible PE Atrial fibrillation no anticoagulation therapy POA Hypertension Hyperlipidemia Obesity BMI 31.7 History of HEATHER Recent COVID infection treated as outpatient with Main electrolyte derangement: hypomagnesemia elevated LFT elevated BNP POA PLAN: admit: medical surgical floor with Tele proposal consultant: 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 blood pressure: Nifedipine labetalol 100 mg po bid continued with CPAP at bed night and prn replaced electrolytes as needed basis ongoing surveillance: to keep K+ > 4.0 and Mag > 2.0 home medications reviewed no changes all questions answered further orders as per response to tx. ATTESTATION BY PHYSICIAN I have seen and examined the patient. I reviewed the documentation, medical decision making, and treatment plan as noted by the mid-level provider above. I agree with the findings and plan of care. DAVID ELKINS MD, ELIZABETH NP Nov 09, 2024 09:09
--- NOTE | 2024-11-09 12:05 | PN ---
NEPHROLOGY PROGRESS NOTE Date/Time Patient Seen: Nov 09, 2024 SUBJECTIVE: This is a 64-year-old male with past medical history of atrial fibrillation, hypertension, hyperlipidemia, and recent COVID infection He presented to the hospital shortness of breath The patient has underlying hyperkalemia admission, atrial fibrillation, hypertension, hyperlipidemia, shortness of breath, obesity, and sleep apnea. The patient remains with low sodium. No fevers, chills, or rigors. No cough, spectrum, hemoptysis. Mild anemia is present. No other associated findings. No other aggravating or relieving factors. We has been consulted for hyponatremia. Sodium today was 129 mmol/L He continues on sodium chloride tablets 2 g p.o. q.6 hours as per pulmonology. He was seen in the medical floor, in no acute distress Condition remains guarded REVIEW OF SYSTEMS: GENERAL: Negative for any nausea, vomiting, fevers, chills, or weight loss. NEUROLOGIC: Negative for any blurry vision, blind spots, double vision, facial asymmetry, dysphagia, dysarthria, hemiparesis, hemisensory deficits, vertigo, ataxia. HEENT: Negative for any head trauma, neck trauma, neck stiffness, photophobia, phonophobia, sinusitis, rhinitis. CARDIAC: Negative for any chest pain, dyspnea on exertion, paroxysmal nocturnal dyspnea, peripheral edema. PULMONARY: Negative for any shortness of breath, wheezing, COPD, or TB exposure. GASTROINTESTINAL: Negative for any abdominal pain, nausea, vomiting, bright red blood per rectum, melena. GENITOURINARY: Negative for any dysuria, hematuria, incontinence. INTEGUMENTARY: Negative for any rashes, cuts, insect bites. RHEUMATOLOGIC: Negative for any joint pains, photosensitive rashes, history of vasculitis or kidney problems. HEMATOLOGIC: Negative for any abnormal bruising, frequent infections or bleeding. Vital Signs (last 8hr) Date Time Temp Pulse Resp B/P (MAP) Pulse Ox O2 Delivery O2 Flow Rate FiO2 11/09/24 11:49 98.2 74 18 116/67 94 Room Air 11/09/24 08:05 98.1 72 18 120/67 93 11/09/24 08:00 93 Room Air* 0 21 11/09/24 06:58 82 20 N/A Room Air 21 11/09/24 06:58 82 20 PHYSICAL EXAM: GENERAL: Alert and oriented x 3. No acute distress. Well-nourished. EYES: EOMI. Anicteric. HENT: Moist mucous membranes. No scleral icterus. No cervical lymphadenopathy. LUNGS: Clear to auscultation bilaterally. No accessory muscle use. CARDIOVASCULAR: Regular rate and rhythm. No murmur. No JVD. ABDOMEN: Soft, non-tender and non-distended. No palpable masses. EXTREMITIES: No edema. Non-tender. SKIN: No rashes or lesions. Warm. NEUROLOGIC: No focal neurological deficits. CN II-XII grossly intact, but not individually tested. PSYCHIATRIC: Cooperative. Appropriate mood and affect. Current Medications Medications (Trade) Dose Ordered Sig/Brendon Route PRN Reason Start Time Stop Time Status Last Admin Dose Admin Acetaminophen (TYLenol 500MG TAB) 500 mg Q6H PRN PO MILD PAIN (1-3) 11/06/24 14:00 12/06/24 13:59 Albuterol (DUOneb) 1 UDVIAL Q6H PRN IH SHORTNESS OF BREATH 11/06/24 14:00 12/06/24 13:59 11/07/24 07:13 1 UDVIAL Albuterol Sulfate (Proventil 0.083% 2.5mg/3ml) 2.5 mg BID IH 11/08/24 21:00 12/08/24 20:59 Albuterol Sulfate (Proventil 0.083% 2.5mg/3ml) 90 mg BID IH 11/06/24 21:00 11/08/24 11:05 DC 11/08/24 08:29 90 MG Aspirin (Aspirin 81mg Ec Tab) 81 mg DAILY PO 11/07/24 09:00 12/07/24 08:59 11/08/24 08:28 81 MG Dextrose/Lactated Ringer's 1,000 ml @ 75 mls/hr [id number] IV 11/07/24 10:00 11/07/24 14:18 DC Dronedarone (Multaq) 400 mg BID PO 11/06/24 21:00 12/06/24 20:59 11/08/24 08:28 400 MG Famotidine (Pepcid 20mg Vial) 20 mg BID IV 11/06/24 21:00 11/06/24 16:52 DC Guaifenesin/ Dextromethorphan (RobiTUSSin DM 200/20MG 10ML) 15 ml Q6H PRN PO COUGH 11/06/24 22:00 12/06/24 21:59 Heparin Sodium (Porcine) (HEParin 5,000 UNIT VIAL) 5,000 unit Q12H SQ 11/06/24 22:00 12/06/24 21:59 11/08/24 11:13 5,000 UNIT Home Med (Home Medication) Fluticasone/ Umeclidin/ Vilan... DAILY IH 11/07/24 09:00 12/07/24 08:59 Labetalol HCl (TRANdate 100 MG TABLET) 100 mg BID PO 11/06/24 21:00 12/06/24 20:59 11/06/24 21:34 100 MG Levothyroxine Sodium (SYNTHroid 100MCG TAB) 100 mcg SYN PO 11/07/24 06:30 12/07/24 06:29 11/08/24 06:27 100 MCG Magnesium Sulfate 50 ml @ 0 mls/hr PROTOCOL IV 11/07/24 10:30 12/07/24 10:29 Montelukast Sodium (SinguLAIR) 10 mg HS PO 11/06/24 21:00 12/06/24 20:59 11/07/24 21:41 10 MG Nifedipine (adALAT 30MG) 30 mg HS PO 11/06/24 21:00 12/06/24 20:59 11/06/24 21:34 30 MG Pantoprazole Sodium (PROTonix 40MG TAB) 40 mg DAILY PO 11/07/24 09:00 12/07/24 08:59 11/08/24 08:28 40 MG Potassium Chloride 100 ml @ 100 mls/hr AD PRN IV POTASSIUM PROTOCOL 11/06/24 14:30 12/06/24 14:29 Potassium Chloride (K-Dur/Klor-Con 20meq) 20 meq AD PRN PO POTASSIUM PROTOCOL 11/06/24 14:30 12/06/24 14:29 Potassium Chloride (KCl 10% Elixir 20meq/15ml) 20 meq AD PRN PO POTASSIUM PROTOCOL 11/06/24 14:30 12/06/24 14:29 Sodium Chloride 500 ml @ 75 mls/hr Q6H40M IV 11/06/24 14:00 11/06/24 17:34 DC 11/06/24 14:48 75 MLS/HR Sodium Chloride (Sodium Chloride) 1,000 mg Q8H PO 11/06/24 20:00 11/07/24 04:50 DC 11/06/24 20:20 1,000 MG Sodium Chloride (Sodium Chloride) 1,000 mg Q8H PO 11/07/24 06:00 11/07/24 17:24 DC 11/07/24 12:16 1,000 MG Sodium Chloride (Sodium Chloride) 2,000 mg Q6H6 PO 11/07/24 18:00 12/07/24 05:59 11/08/24 11:09 2,000 MG LABORATORY: [ ] Hematology Labs: Test 11/09/24 05:10 Range/Units White Blood Count 8.1 4.8-10.8 K/uL Red Blood Count 3.90 L 4.50-6.20 MIL/uL Hemoglobin 13.1 L 14.0-18.0 g/dL Hematocrit 37.0 L 42-54 % Mean Corpuscular Volume 94.9 79-99 fL Mean Corpuscular Hemoglobin 33.6 H 27.0-33.0 pg Mean Corpuscular Hemoglobin Concent 35.4 32.0-36.0 g/dL Red Cell Distribution Width 12.5 11.0-15.5 % Platelet Count 258 130-400 K/uL Mean Platelet Volume 9.3 7.5-10.5 fL Immature Granulocyte % (Auto) 0.9 0-1 % Neutrophils (%) (Auto) 84.6 H 40.0-77.0 % Lymphocytes (%) (Auto) 3.3 L 21.0-51.0 % Monocytes (%) (Auto) 10.7 3.0-13.0 % Eosinophils (%) (Auto) 0.4 0.0-8.0 % Basophils (%) (Auto) 0.1 0.0-5.0 % Neutrophils # (Auto) 6.9 1.8-7.7 K/uL Lymphocytes # (Auto) 0.3 L 1.0-4.8 K/uL Monocytes # (Auto) 0.9 0.1-1.0 K/uL Eosinophils # (Auto) 0.03 0.00-0.70 K/uL Basophils # (Auto) 0.01 0.00-0.20 K/uL Absolute Immature Granulocyte (auto 0.07 0-1 K/uL Nucleated Red Blood Cells 0.0 0.0-0.19 % Chemistry Labs: Test 11/09/24 05:10 11/08/24 05:05 Range/Units Sodium Level 129 L 136-145 mmol/L Potassium Level 4.4 3.5-5.1 mmol/L Chloride Level 95 L 101-111 mmol/L Carbon Dioxide Level 21 21-32 mmol/L Blood Urea Nitrogen 19 H 7-18 mg/dL Creatinine 1.1 0.5-1.3 mg/dL Glomerular Filtration Rate Calc 75 >90 mL/min Random Glucose 114 H 70-105 mg/dL Uric Acid 6.3 2.6-7.2 mg/dL Total Calcium 8.3 L 8.5-10.1 mg/dL Magnesium Level 2.50 H 1.80-2.40 mg/dL Total Bilirubin 1.7 H 0.2-1.0 mg/dL Aspartate Amino Transf (AST/SGOT) 156 H 10-37 U/L Alanine Aminotransferase (ALT/SGPT) 121 H 12-78 U/L Alkaline Phosphatase 97 50-136 U/L Total Protein 7.4 6.0-8.3 g/dL Albumin 2.9 L 3.5-5.0 g/dL Direct Bilirubin 0.8 H 0.0-0.3 mg/dL DIAGNOSTICS / RADIOLOGY: REASON: Transaminitis ORDERING PHYSICIAN: JIMMIE AGUILAR LEAD MILITARY ANALYST PROCEDURE: ABD WALL - US ABD LIMITED/ABD WALL Exam Type: US ABD LIMITED/ABD WALL Clinical Information: Transaminitis Comparison: None Findings: The liver shows fatty infiltration and is enlarged, measuring 19.6 cm cm and is otherwise unremarkable. Doppler evaluation shows patent portal and hepatic veins. The gallbladder shows no significant abnormalities. Specifically, no calculi are seen. No bile duct dilatation is noted. The gallbladder wall measures 2 mm. The common bile duct measures 4 mm. The right kidney measures 11.9 x 5.8 cm- it shows no hydronephrosis or calculi, masses or other abnormalities. Simple cyst right kidney midpole 2.4 cm. The pancreas is suboptimally visualized. The aorta and inferior vena cava show no significant abnormalities. IMPRESSION: FATTY LIVER INFILTRATION AND HEPATOMEGALY. OTHERWISE NORMAL RIGHT UPPER QUADRANT ABDOMINAL ULTRASOUND. DICTATED BY: NAHEED FOX MD DATE: 11/07/24 1021 REASON: Elevated BNP, SOB on exertion ORDERING PHYSICIAN: JIMMIE AGUILAR PROCEDURE: ECHO CMP - ECHO 2-D COMPLETE APPROVED REPORT EXAM: Two-dimensional and M-mode echocardiogram with Doppler and color Doppler. INDICATION ICD: Elevated BNP, shortness of breath on exertion 2D Dimensions RVDd 3.9 cm LVEF(%) 54.1 (>50%) LVED Vol(simp.) 117.0 mL IVSd 0.8 (0.7-1.1cm) FS(%) 28 % LVES Vol(simp.) 31.0 mL LVDd 5.5 (3.8-5.6cm) LA (2D) 4.6 (1.6-4.0cm) LVEF(%, simp.) 73 % PWd 0.8 (0.7-1.1cm) Ao Root(2D) 3.4 (2.0-3.7cm) LA ESV INDEX (BP) 39.22 mL/m2 IVSs 1.1 cm LVOT diam 2.3 (1.8-2.4cm) LVDs 3.9 (2.5-4.0cm) IVC diam 1.8 cm PWs 1.2 cm Deformation Strain Apical 4 -21.3 % Apical 2 -22.3 % Apical 3 -22.5 % Global Strain -22.0 % M-Mode Dimensions EPSS 0.8 cm LA (MM) 4.8 (1.6-4.0cm) Ao Root(MM) 3.7 (2.0-3.7cm) Aortic Valve AoV Vmax 1.7 m/s Ao Peak GR 11.2 mmHg LVOT Vmax 1.5 m/s AoV VTI 0.3 m Ao Mean GR 6.3 mmHg LVOT VTI 0.31 m PEDRO (VMAX) 3.70 cm2 PEDRO (VTI) 4.2 cm2 Mitral Valve MV E Vmax 75.8 cm/s DECEL Time 295 ms MV A Vmax 68.7 cm/s P 1/2 T 35 ms E/A ratio 1.1 MVA (PHT) 6.3 cm2 TDI E/E' Medial 9.0 E/E' Lateral 8.3 Medial E' Peak V 8.40 cm/s Lateral E' Peak V 9.15 cm/s Pulmonary Valve PV Vmax 1.3 m/s PV VTI 0.30 m PV Mean GR 4.4 mmHg PV Peak GR 7.2 mmHg Tricuspid Valve RAP (EST) 3 mmHg RVSP 3.0 mmHg Left Ventricle The left ventricle is normal size. GLS -22.0%. There is normal left ventricular wall thickness. LVEF is >70%. 3D volume EF 72%. The left ventricular diastolic function is normal. Right Ventricle The right ventricle is normal size. The right ventricular systolic function is normal. RV FAC 41%. Atria The left atrium is mildly dilated. The right atrium is mildly dilated. Aortic Valve The aortic valve is normal in structure. No aortic regurgitation is present. There is no aortic valvular stenosis. Mitral Valve The mitral valve is normal in structure. There is mild mitral valve regurgitation noted. There is no mitral valve stenosis. Tricuspid Valve The tricuspid valve is normal in structure. There is trace of tricuspid valve regurgitation noted. Pulmonic Valve The pulmonary valve is normal in structure. There is no pulmonic valvular regurgitation. Great Vessels The aortic root is normal in size. The IVC is normal in size and collapses >50% with inspiration. Pericardium There is no pericardial effusion. Other Information Quality : Adequate Rhythm : NSR Conclusion LVEF is >70%. 3D volume EF 72%. The left ventricular diastolic function is normal. The left atrium is mildly dilated. Mild mitral valve regurgitation noted. DICTATED BY: SHIVANI REED DO DATE: 11/07/24 1020 REASON: ASSESS FOR DVT ORDERING PHYSICIAN: JOVANA SHI MD PROCEDURE: VENOUS ROXANNE - US VENOUS DOPPLER BILATERAL US VENOUS DOPPLER BILATERAL HISTORY: Shortness of breath COMPARISON: None TECHNIQUE: Bilateral lower extremity venous Doppler ultrasound study was performed. FINDINGS: The common femoral, femoral, popliteal, and posterior tibial veins are visualized. Normal flow with augmentation and compressibilities are demonstrated. The greater saphenous veins are also seen and grossly patent. IMPRESSION: 1. No evidence of deep venous thrombosis is seen. DICTATED BY: BRUCE BAILEY MD DATE: 11/06/24 1907 REASON: dyspnea ORDERING PHYSICIAN: JIMMIE AGUILAR LEAD MILITARY ANALYST PROCEDURE: CHES PE - CT CHEST PE PROTOCOL WWO CONT CT CHEST PE PROTOCOL WWO CONT HISTORY: Dyspnea COMPARISON: None TECHNIQUE: CT angiography of the chest was performed. The study was performed using angiographic technique with maximum intensity projection reconstruction images. Patient was given 75 cc of Omnipaque through intravenous route. FINDINGS: Pulmonary arteries are poorly opacified limiting evaluation. No CT evidence of filling defect is seen to suggest pulmonary embolus. No CT evidence of aortic dissection is seen. No evidence of parenchymal disease is seen. No CT evidence of pleural effusion or pericardial effusion is seen. The heart is enlarged. Coronary arterial calcifications are seen. No evidence of adrenal mass is seen. Degenerative changes of the spine are noted. IMPRESSION: 1. Pulmonary arteries are poorly opacified limiting evaluation. No gross CT evidence of acute pulmonary embolus is seen. This is a suboptimal study. CT was performed with one or more following dose reduction techniques: automated exposure control, adjustment of the mA and kv according to patient's size, or use of a iterative reconstruction technique. DICTATED BY: BRUCE BAILEY MD DATE: 11/06/242128 REASON: cough,sob ORDERING PHYSICIAN: SHANNEN KUMARI NP PROCEDURE: CXR1VW - CHEST 1VW Exam Type: CHEST 1VW Clinical Information: cough,sob Comparison: None Findings: The lungs are clear of infiltrates. The heart is normal in size. The bony and soft tissue structures of the chest are unremarkable. Impression: Clear lungs. DICTATED BY: NAHEED FOX MD DATE: 11/06/24 1457 ASSESSMENT: Severe hyponatremia asymptomatic Shortness of breaths Atrial fibrillation Hypertension Hyperlipidemia Obesity History of HEATHER Recent COVID infection treated as outpatient with Paxlovid PLAN: Labs, diagnostic, radiologic exams reviewed and interpreted by myself and supervising physician. We have reviewed external records in detail Recommending weaning of sodium chloride tablets Fluid restriction is recommended Require close monitoring of renal function and electrolytes Order CBC, CMP, and electrolytes in am Continue with antibiotics Renal diabetic diet BiPAP as necessary, for respiratory distress IV pressors as needed Monitor blood pressure adjust medication doses as needed Avoid hypotensive episodes May use Dilaudid 0.5 mg IV every 6 hours as needed for severe pain Monitor blood sugars Strict intake, output, and daily weight should be monitored Please renally adjust medications Avoid nephrotoxic and nonsteroidal drugs Avoid contrast if possible Will continue to monitor renal function, anemia, electrolytes Treatment plan discussed with patient Questions were answered We have discussed with the other team physicians in detail about the care plan We will continue to monitor the patient closely ATTESTATION BY PHYSICIAN I have seen and examined the patient. I reviewed the documentation, medical decision making, and treatment plan as noted by the mid-level provider above. I agree with the findings and plan of care. CRISTINA TAM MD, [facility] Nov 09, 2024 12:05
--- NOTE | 2024-11-09 14:20 | DS ---
Discharge Summary Hospital Course Summary: A 64-year-old male with past medical history of atrial fibrillation, hypertension, hyperlipidemia presented to the hospital shortness of breath. The patient was recently diagnosed with COVID by his primary care provider and was placed on Paxlovid. He took the medication for five days. Since finishing the course patient states he has been feeling short of breath at rest and with exertion. He denies any chest pain, abdominal pain, nausea vomiting. Denied any confusion, seizure-like activity, falls, syncopal episode. States he has been mostly drinking electrolyte rich solution at home. He has not been drinking more than usual. He drinks only when he is thirsty. Denied any abdo jeane pain, diarrhea, fever, chills. Denied any cough. He only takes aspirin every other day for AFib. He is not on any anticoagulation. 11/07/24 patient is seen and examined patient is fully awake alert oriented x3. latest [id number] pin pusher's was consulted. will follow recommendations 11/08/24 earlier patient is fully awake alert oriented x3. Denied chest pain, headaches palpitations. Patient was started on sodium tablets per pin pusher's latest sodium 122. 11/09/24 patient was seen patient appears to be upset this morning he reports was unable to sleep overnight given to medical staff going into his room. Fluid res triction continues1 L per day sodium today 129. Denies headache shortness a breath dizziness. Today the patient is alert oriented x3, hemodynamically stable, sodium level improved to 129, the patient would like to be discharged home. Discussed with the pin pusher, okay to follow up as an outpatient in 1-2 weeks, written prescription for sodium chloride tablet 500 mg p.o. t.i.d. has been provided. Home medications reviewed, all of them were resumed except telmisartan 80 mg p.o. daily that he takes at home. Advised the patient to hold this medication and follow up with his transplanter orchid Dr. Jaguar Machado on Monday. Patient a greed and understood the information provided. PHYSICAL EXAM GENERAL APPEARANCE: The patient is awake, alert, and oriented, in no acute cardiopulmonary distress. NEUROLOGICAL: Cranial nerves II-XII grossly intact. Motor is 5/5 in bilateral upper and lower extremities proximal to distal. No sensory deficits. HEENT: Face is symmetric. Pupils are equal and reactive. Extraocular movements are intact. NECK: Supple. No JVD. No thyromegaly. No submental, submandibular, pre- /postauricular, occipital or supraclavicular lymphadenopathy. CHEST: Normal chest expansion. No Telemetry. LUNGS: Absence of any rales, rhonchi or any wheezing. CARDIOVASCULAR: Regular. S1 and S2 normal. No appreciable rubs, murmurs or gallops. ABDOMEN: Soft, nontender, and nondistended. There is no rebound, voluntary guarding, or rigidity. : Deferred. No Guevara. EXTREMITIES: Non-edematous and not cyanotic. No clubbing. Good capillary refill. SKIN: No skin breakdown. Sales Assistant(s): Nephrology Assessment/Plan: Final diagnosis Severe hyponatremia asymptomatic POA likely in setting of recent HCTZ use hypovolemia, improving metabolic acidosis POA resolvied Shortness of breaths differential secondary to recent COVID versus possible PE Atrial fibrillation no anticoagulation therapy POA Hypertension Hyperlipidemia Obesity BMI 31.7 History of HEATHER Recent COVID infection treated as outpatient with Paxlovid electrolyte derangement: hypomagnesemia elevated LFT elevated BNP POA Discharge Instructions: Today the patient is alert oriented x3, hemodynamically stable, sodium level improved to 129, the patient would like to be discharged home. Discussed with the pin pusher, yuval to follow up as an outpatient in 1-2 weeks, written prescription for sodium chloride tablet 500 mg p.o. t.i.d. has been provided. Home medications reviewed, all of them were resumed except telmisartan 80 mg p.o. daily that he takes at home. Advised the patient to hold this medication and follow up with his transplanter orchid Dr. Jaguar Machado on Monday. Patient agreed and understood the information provided. Home Medications: Reported Medications Telmisartan (Telmisartan) 80 Mg Tablet, 1 TAB PO DAILY for 30 Days, #30 TAB 0 Refills 11/08/24 Desloratadine (Desloratadine) 5 Mg Tablet, 1 TAB PO DAILY for 30 Days, #30 TAB 0 Refills 11/08/24 Rosuvastatin Calcium (Rosuvastatin Calcium) 5 Mg Tablet, 1 TAB PO DAILY for high cholesterol for 30 Days, #30 TAB 0 Refills 11/08/24 Aspirin (ASPIRIN 81 MG ECTAB) 81 Mg Ectab, 81 MG PO DAILY, TAB.EC MON/MON/MON/SUN 06/03/24 Levothyroxine Sodium (Levothyroxine) 100 Mcg Capsule, 100 MCG PO ACBKFST, CAP 06/03/24 Nifedipine (Nifedipine ER) 30 Mg Tablet.er, 30 MG PO HS, TAB 06/03/24 Dronedarone Hydrochloride (Multaq) 400 Mg Tablet, 400 MG PO BID, TAB 06/03/24 Labetalol HCl (Labetalol HCl) 100 Mg Tablet, 100 MG PO BID, TAB 06/03/24 Fluticasone/Umeclidin/Vilanter (Trelegy Ellipta 100-62.5-25) 100-62.5 Blst.w.dev, 1 EACH IH DAILY 04/11/24 Albuterol Sulfate (Albuterol Sulfate) 2.5 Mg/3 Ml (0.083 %) Vial.neb, 90 MG IH BID, INH 04/11/24 Montelukast Sodium (Montelukast Sodium) 10 Mg Tablet, 10 MG PO HS, #1 TAB 04/11/24 Omeprazole (Omeprazole) 20 Mg Tab.rap.dr, 20 MG PO BID 04/11/24 Discontinued Reported Medications Fexofenadine/Pseudoephedrine (Kerri-D 24 Hour Tablet) 180 Mg-240 Mg Tab.er.24h, 1 EACH PO DAILY PRN for ALLERGIES, TAB 06/03/24 Desloratadine (Desloratadine) 5 Mg Tablet, 5 MG PO DAILY, TAB 06/03/24 Rosuvastatin Calcium (Rosuvastatin Calcium) 5 Mg Tablet, 5 MG PO DAILY, TAB 04/11/24 Telmisartan (Telmisartan) 80 Mg Tablet, 80 MG PO AM, TAB 04/11/24 Time spent arranging discharge: 31-60 minutes DAVDI ELKINS MD Nov 09, 2024 14:20
--- NOTE | 2024-11-09 15:40 | NUR ---
PATIENT DISCHARGED. IV REMOVED INTACT. TELEPACK REMOVED. EXPLAINED FOLLOW UP APPOINTMENTS TO [facility] AND [facility]ER WORKER. EXPLAINED TO STOP TELMISARTAN AND NEW PRESCRIPTION TAKEN BY PATIENT. ALL ITEMS GATHERED AND TAKEN WITH PATIENT. PATIENT REFUSED WHEELCHAIR AND LEFT AMBULATING TO PERSONAL VEHICLE. PATIENT LEFT ALERT AND ORIENTED X 4
--- NOTE | 2024-11-09 23:35 | PN ---
[facility] PROGRESS NOTE BACK DATED ENTRY FOR 11/09/24 1335 Date Patient Seen: Nov 09, 2024 Time of Visit: 1335 Supervising Physician: Dr. Jameel Begum Primary Care Physician: Outpatient Specialists: Dr. Dewayne Machado, special event assistant Inpatient Consults: [facility], critical care team nephrology PROBLEM LIST: Severe hyponatremia, asymptomatic, POA , improving -2 g sodium chloride tablets q.6 hours scheduled -serial sodium levels q.6 hours SIDH Dyspnea on exertion, POA Fluid overload, BNP 701, POA Elevated D-dimer,, POA ruled out PE Transaminitis, POA Respiratory alkalosis, POA Acute kidney injury, GFR 56 Acute or chronic kidney disease, GFR 62-76 in 03/2024 Acute dehydration/ketonuria, POA Anemia History of Atrial fibrillation, currently sinus rhythm Hypertension Hyperlipidemia Obesity, BMI 31.7 History of HEATHER Recent COVID infection treated as outpatient with Paxlovid INTERVAL HISTORY: Mr. Rosenthal is a 64-year-old male with past medical history of atrial fibrillation, hypertension, hyperlipidemia who presented to the hospital shortness of breath on exertion. The patient was recently diagnosed with COVID by his primary care provider and was placed on Paxlovid. He took the medication for five days. Stated he has been mostly drinking electrolyte rich solution at home. He has n ot been drinking more than usual. He drinks only when he is thirsty. The patient denied cough, chest pain, abdominal pain, nausea, vomiting, confusion, seizure-like activity, falls, syncopal episode, abdominal pain, diarrhea, fever, or chills. He only takes aspirin every other day for AFib, no anticoagulation. Labs: WBC 10.6, hemoglobin was 13.6, platelet count was 259 K, sodium on presentation was 117, potassium was 4.9, GFR 56, creatinine was 1.4, bicarb was 19, BUN was 24, troponin was negative x1. Chest x-ray was noted to be clear. Initial Na was 117, 2nd 118, 3rd 115. ED provider ordered NS 500 mL. (when I assessed the patient in ED less 75 ml had been infused). Hyperkalemia was treated with Lokelma 5 mg. 11/07-patient is resting in bed lying in a high Baldwin's position watching television during the time of my assessment. Reviewed with the diagnostic laboratory studies for the day and laboratory studies vital signs. IV fluid has been discontinued. Patient has been discontinued on the the dextrose LR IV fluid, fluid restriction, sodium tablets 2 g q.6 hours with serial sodiums to be checked q.6 hours. The goal is to gently raise the patient's sodium level with the focus on the laboratory studies and patient's presentation. Patient is hemodynamically stable at this time. Echocardiogram was ordered completed and resulted EF between 65-70%. A.m. laboratory studies have been ordered for tomorrow 11/08-patient has assess day bedside the patient was resting in bed lying in a supine position resting comfortably with no family members nor friends present. Patient reports friends coming to visit this afternoon. Patient was informed of laboratory values, results of diagnostic tests were reviewed, and vital signs. Patient's sodium level is coming up. Patient reports feeling much for awake alert and patient is hemodynamically stable. We will continue plan of serial sodiums with sodium chloride tablets q.6 hours. Anticipate the patient being discharged in next 24-36 hours. 11/09-assess patient at bedside patient is resting sitting at the side of his bed, friendly and conversant. Patient denies shortness or breath dizziness, headache, chest pain, increased tiredness, fever or chills at this time curr ently. Patient is hemodynamically stable sodium level has increased, patient we will be following up with primary care provider within the next 3-5 days because of the weekend timeframe so this issue can be addressed and managed as an outpatient. At this time in the patient's admission process, signing off thank you for the opportunity to participate in the care of this patient. During the hospitalization please re consult if there is any issues or concerns that arise. REVIEW OF SYSTEMS: 12 point ROS reviewed with patient. Pertinent positives mentioned above. Otherwise negative. PHYSICAL EXAM: GENERAL: Alert, awake oriented x 4 HEENT: EOMI, Sclera non icteric, moist mucosa NECK: Supple, no JVD, trachea midline LUNGS: Clear breath sounds bilaterally. No wheezes HEART: Regular rate and rhythm. Normal S1 and S2, without murmurs ABD: Obese. Abdomen soft, nontender. Bowel sounds present EXT: No clubbing cyanosis or edema NEURO: Alert and oriented X4, follows commands. NIH 0 LABS: Hematology Labs: Test 11/09/24 05:10 Range/Units White Blood Count 8.1 4.8-10.8 K/uL Red Blood Count 3.90 L 4.50-6.20 MIL/uL Hemoglobin 13.1 L 14.0-18.0 g/dL Hematocrit 37.0 L 42-54 % Mean Corpuscular Volume 94.9 79-99 fL Mean Corpuscular Hemoglobin 33.6 H 27.0-33.0 pg Mean Corpuscular Hemoglobin Concent 35.4 32.0-36.0 g/dL Red Cell Distribution Width 12.5 11.0-15.5 % Platelet Count 258 130-400 K/uL Mean Platelet Volume 9.3 7.5-10.5 fL Immature Granulocyte % (Auto) 0.9 0-1 % Neutrophils (%) (Auto) 84.6 H 40.0-77.0 % Lymphocytes (%) (Auto) 3.3 L 21.0-51.0 % Monocytes (%) (Auto) 10.7 3.0-13.0 % Eosinophils (%) (Auto) 0.4 0.0-8.0 % Basophils (%) (Auto) 0.1 0.0-5.0 % Neutrophils # (Auto) 6.9 1.8-7.7 K/uL Lymphocytes # (Auto) 0.3 L 1.0-4.8 K/uL Monocytes # (Auto) 0.9 0.1-1.0 K/uL Eosinophils # (Auto) 0.03 0.00-0.70 K/uL Basophils # (Auto) 0.01 0.00-0.20 K/uL Absolute Immature Granulocyte (auto 0.07 0-1 K/uL Nucleated Red Blood Cells 0.0 0.0-0.19 % Chemistry Labs: Test 11/09/24 05:10 11/08/24 05:05 Range/Units Sodium Level 129 L 136-145 mmol/L Potassium Level 4.4 3.5-5.1 mmol/L Chloride Level 95 L 101-111 mmol/L Carbon Dioxide Level 21 21-32 mmol/L Blood Urea Nitrogen 19 H 7-18 mg/dL Creatinine 1.1 0.5-1.3 mg/dL Glomerular Filtration Rate Calc 75 >90 mL/min Random Glucose 114 H 70-105 mg/dL Uric Acid 6.3 2.6-7.2 mg/dL Total Calcium 8.3 L 8.5-10.1 mg/dL Magnesium Level 2.50 H 1.80-2.40 mg/dL Total Bilirubin 1.7 H 0.2-1.0 mg/dL Aspartate Amino Transf (AST/SGOT) 156 H 10-37 U/L Alanine Aminotransferase (ALT/SGPT) 121 H 12-78 U/L Alkaline Phosphatase 97 50-136 U/L Total Protein 7.4 6.0-8.3 g/dL Albumin 2.9 L 3.5-5.0 g/dL Direct Bilirubin 0.8 H 0.0-0.3 mg/dL DIAGNOSTICS / RADIOLOGY RESULTS: [ ] PLAN -Continue medical telemetry monitoring. -start patient on 2 g sodium Q six -discontinue IV fluid, fluid restriction -serial sodiums q.6 hours. -Correct sodium slowly up to 5-6 mEq a day. -Nephrology consult. -Obtain BNP, monitor for fluid overload. -Echocardiogram results: LVEF is >70%. 3D volume EF 72%. The left ventricular diastolic function is normal. The left atrium is mildly dilated. Mild mitral valve regurgitation noted. Ultrasound right upper quadrant abdomen impression: FATTY LIVER INFILTRATION AND HEPATOMEGALY. OTHERWISE NORMAL RIGHT UPPER QUADRANT ABDOMINAL ULTRASOUND. -Obtain peak flow in admit/q.a.m. -Monitor respiratory status closely. -Oxygen therapy as needed. Titrate oxygen prn to keep Spo2>/+=92%. -Start patient's Trelegy Ellipta in am. -Patient's home medications were reconciled: Aspirin, Multaq, labetalol, levothyroxine, nifedipine ER, albuterol inhalver, Trelegy Ellipta, montelukast, omeprazole. -RT to provide IS and education on use. -Robitussin DM as needed cough. -p.r.n. medications for: Pain management, fever, nausea, vomiting, constipation, hypertension. -Glucometer checks AC & HS needed with insulin regular sliding scale coverage as needed. -Blood pressure checks every 4 hours and as needed. -AM labs. -Monitor renal and liver function -Monitor electrolytes and treat accordingly. -GI and DVT prophylaxis: Protonix and -Additional plan and orders per hospitalization course. NEURO: Minimize central acting medications as possible. Maintain fall precautions, adequate lighting during the day PULMONARY: Supplemental 02 as needed. Maintain aspiration precautions at all times CARDIOVASCULAR: Follow hemodynamics. Vital signs per facility protocol GI & NUTRITION: Continue with nutritional support. Continue stool softeners and laxatives as needed. KIDNEYS & ELECTROLYTES: Strict monitoring of intake, output and overall fluid balance. Avoid nephrotoxic medications to the extent possible. Medications to be dosed according to renal function. Monitor electrolytes and replace as needed ENDOCRINE: Maintain blood glucose between 100-180 at all times. Hypoglycemia protocol in place INFECTIOUS DISEASE: Trend temperature, WBC and procalcitonin level Follow cultures, deescalate antibiotics as soon as possible. Panculture if new onset fever ONCOLOGY/HEMATOLOGY/COAGULATION: Monitor for s/s of bleeding Monitor hemoglobin, coagulation studies as needed SKIN: Pressure ulcer prevention per facility protocol Specialty mattress ORTHO/REHAB: Continue PT/OT Prophylaxis: Continue GI and DVT prophylaxis Code Status: Full Resuscitation Disposition: TBD Other: Consulted with Dr. Shukla on this patient. Total patient critical care time exceeds 40 minutes excluding all procedures. IVELISSE BOX NP Nov 09, 2024 23:35
--- NOTE | 2024-11-11 14:43 | NUR ---
Transitional Phone Call Patient returned to [facility] emergency room c/o SOB on 11/11/2024.
[2024-11-12] MEDS ORDERED: SODI100037 PO (16:34)
[2024-11-12] MEDS ORDERED: LABE100T7 PO (16:34)
== END 2024-11-09 15:48 | disposition home or self-care (01) | DRG 641 ==
LOC: EDH 11:33 → EDHIP 14:02 → 3BH 11-07 00:09
PROVIDERS: ADMIT Internal Medicine; ATTEND Internal Medicine
PROC: 5A09357 Assistance with Respiratory Ventilation, Less than 24 Consecutive Hours, Continuous Positive Airway Pressure (ICD-10-PCS; principal; 2024-11-07)
PROC: 5A09357 Assistance with Respiratory Ventilation, Less than 24 Consecutive Hours, Continuous Positive Airway Pressure (ICD-10-PCS; 2024-11-08)
PROC: 5A09357 Assistance with Respiratory Ventilation, Less than 24 Consecutive Hours, Continuous Positive Airway Pressure (ICD-10-PCS; 2024-11-09)
DX: E87.1 Hypo-osmolality and hyponatremia (principal); N17.9 Acute kidney failure, unspecified; E87.70 Fluid overload, unspecified; D64.9 Anemia, unspecified; E66.9 Obesity, unspecified; E86.0 Dehydration; I12.9 Hypertensive chronic kidney disease with stage 1 through stage 4 chronic kidney disease, or unspecified chronic kidney disease; E03.9 Hypothyroidism, unspecified; E78.00 Pure hypercholesterolemia, unspecified; E87.4 Mixed disorder of acid-base balance; E87.5 Hyperkalemia; I25.10 Atherosclerotic heart disease of native coronary artery without angina pectoris; N18.9 Chronic kidney disease, unspecified; R62.7 Adult failure to thrive; K76.0 Fatty (change of) liver, not elsewhere classified; J44.89 Other specified chronic obstructive pulmonary disease; E87.8 Other disorders of electrolyte and fluid balance, not elsewhere classified; I48.91 Unspecified atrial fibrillation; G47.30 Sleep apnea, unspecified; Z68.31 Body mass index [BMI] 31.0-31.9, adult; Z85.46 Personal history of malignant neoplasm of prostate; Z79.82 Long term (current) use of aspirin; Z86.16 Personal history of COVID-19
CPT/HCPCS: 36415; 36600; 71045; 71270; 76376; 76705; 80048; 80051; 80053; 80076; 81003; 82435; 82533; 82550; 82570; 82803; 82947; 83605; 83735; 83880; 83930; 83935; 84100; 84132; 84295; 84300; 84443; 84484; 84550; 85018; 85025; 85027; 85378; 85610; 85730; 87635; 87804; 93005; 93306; 93356; 93970; 94640; 99285; G0378; J1644; J7030; Q9967